=== PATIENT | male | born 1945 | race Caucasian/White ===

== ENCOUNTER 2021-04-20 14:11 | Outpatient (CLI) | payer OTHER, SELFPAY ==
--- NOTE | 2021-04-20 14:18 | USCV_ITS ---
Carlos Alberto Suárez Age: 76 Gender: M : 1945 Exam Date: 04/20/2021 14:30 Ordering Phys: Rosita Sam MD Technologist: AVA Exam Location: [facility] Indication: MURMUR BP: 137 / 80 HR: 83 Rhythm: Sinus Technical Quality: Adequate MEASUREMENTS (Male / Female) Normal Values 2D ECHO LV Diastolic Diameter PLAX 3.1 cm 4.2 - 5.9 / 3.9 - 5.3 cm LV Systolic Diameter PLAX 2.3 cm IVS Diastolic Thickness 1.0 cm 0.6 - 1.0 / 0.6 - 0.9 cm IVS Systolic Thickness 1.6 cm LVPW Diastolic Thickness 1.3 cm 0.6 - 1.0 / 0.6 - 0.9 cm LVPW Systolic Thickness 1.7 cm RV Chamber Size 2.7 cm LVOT Diameter 2.0 cm LV Ejection Fraction 2D Teich 51.8 % LV Ejection Fraction MOD 2C 44.4 % LV Ejection Fraction 2C AL 45.0 % LA Diameter 2.5 cm LA Width 2.9 cm LA Height 4.2 cm RA Width 2.8 cm RA Height 3.6 cm Aorta at Sinotubular Diameter 2.4 cm DOPPLER AV Peak Velocity 123.0 cm/s LVOT Peak Velocity 121.0 cm/s AV Area Cont Eq vti 3.6 cm squared AV Area Cont Eq pk 3.1 cm squared MV Peak Velocity 136.0 cm/s MV Area PHT 3.1 cm squared Mitral E to A Ratio 0.5 MV E' Velocity 35.0 cm/s Mitral E to MV E' Ratio 16.9 Mitral E to LV E' Lateral Ratio 16.4 Mitral E to LV E' Septal Ratio 17.8 TR Peak Velocity 250.0 cm/s TR Peak Gradient 25.0 mmHg TV Peak E Velocity 48.0 cm/s Right Atrial Pressure 3.0 mmHg Pulmonary Artery Systolic Pressu 28.0 mmHg PV Peak Velocity 102.0 cm/s RV Acceleration Time 0.1 s RV Ejection Time 0.3 s RV AcT/ET 0.5 FINDINGS Left Ventricle Normal left ventricular size, systolic function and increased wall thickness, with no regional wall motion abnormalities. Left ventricular ejection fraction is estimated at 65-70 %. Grade I diastolic dysfunction (abnormal relaxation filling pattern), normal to mildly elevated filling pressures. Right Ventricle Normal right ventricular size and systolic function. Right ventricular systolic pressure 28 mmHg. Right Atrium Normal right atrial size. Right atrial pressure estimated at 3 mm Hg. Left Atrium Mildly increased left atrial size. Mitral Valve Moderate mitral annular calcification. Thickened mitral valve. No mitral valve stenosis. Trace mitral valve regurgitation. Aortic Valve Moderately thickened and calcified aortic valve. Aortic valve sclerosis. No aortic valve stenosis. No aortic valve regurgitation. Tricuspid Valve Structurally normal tricuspid valve. Trace to mild tricuspid valve regurgitation. Pulmonic Valve Pulmonic valve not well visualized. Pericardium No pericardial effusion. Aorta Normal size aortic root. Normal sized inferior vena cava. CONCLUSIONS 1. Normal left ventricular size, systolic function and increased wall thickness, with no regional wall motion abnormalities. Left ventricular ejection fraction is estimated at 65-70 %. Grade I diastolic dysfunction (abnormal relaxation filling pattern), normal to mildly elevated filling pressures. 2. Pulmonary artery pressure estimated at 28 mmHg. 3. Trace to mild tricuspid valve regurgitation. 4. Moderately thickened and calcified aortic valve. Aortic valve sclerosis. 5. No prior similar studies to compare. Marybel Razo MD (Electronically Signed) Final Date: 22 April 2021 13:01 S
== END 2021-04-20 14:12 | disposition home or self-care (01) ==
LOC: US 14:13
PROVIDERS: PCP Family Medicine; Visit Provider Family Medicine
DX: R01.1 Cardiac murmur, unspecified (principal); I08.2 Rheumatic disorders of both aortic and tricuspid valves
CPT/HCPCS: 93306

== ENCOUNTER 2024-03-27 11:31 | Inpatient (IN) | payer OTHER, SELFPAY ==
[2024-03-27] VITALS (8 sets, daily range): BP systolic 132–186; BP diastolic 68–96; PULSE 63–80; RESP 14–20; TEMP 36.4–36.8; O2SAT 95–100; BMI 23.3
--- NOTE | 2024-03-27 14:08 | XRR_ITS ---
PROCEDURE INFORMATION: Exam: XR Left Hand Exam date and time: 03/27/2024 2:15 PM Age: 78 years old Clinical indication: Injury or trauma; Other: Not specified; Blunt trauma (contusions or hematomas); Hand; Left; Injury date: 1 week ago TECHNIQUE: Imaging protocol: Radiologic exam of the left hand. Views: 3 or more views. COMPARISON: No relevant prior studies available. FINDINGS: Bones/joints: No fracture or dislocation is seen. Moderate degenerative changes are seen about the left hand and including carpal-first metacarpal joint. Soft tissues: Suggestion of mild soft tissue swelling. XR/XR hand LT min 3V* [id number] IMPRESSION: Moderate degenerative changes. No fracture or dislocation is seen.
--- NOTE | 2024-03-27 14:15 | CTR_ITS ---
PROCEDURE INFORMATION: Exam: CT Left Upper Extremity With Contrast, Hand Exam date and time: 03/27/2024 3:38 PM Age: 78 years old Clinical indication: Injury or trauma; Fall; Other: Pain; Additional info: Abscess thenar eminence TECHNIQUE: Imaging protocol: Computed tomography of the left upper extremity with contrast. Exam focused on the hand. Radiation optimization: All CT scans at this facility use at least one of these dose optimization techniques: automated exposure control; mA and/or kV adjustment per patient size (includes targeted exams where dose is matched to clinical indication); or iterative reconstruction. Contrast material: OMNI 350; Contrast volume: 100 ml; Contrast route: INTRAVENOUS (IV); COMPARISON: CR XR hand LT min 3V* [id number] 03/27/2024 2:15 PM RADIATION DOSE METRICS: Total DLP (mGy-cm): 300 FINDINGS: Bones/joints: See Soft tissues finding. Soft tissues: Diffuse moderate degenerative changes noted about the left hand, as identified on radiographs. No acute fracture or acute osseous abnormality is seen. Diffuse subcutaneous and deeper soft tissue edematous and/or infiltrative changes noted. This includes the thenar eminence region. A couple of tiny foci of air density is seen medial to the proximal phalanx of the thumb. This may be posttraumatic or associated with soft tissue infection. No enhancing capsular fluid collection to suggest significant abscess. There is suggestion of diffuse mild hypodense appearance within the thenar soft tissues, measuring greater than fluid density. Contrast is seen within vessels postcontrast administration. CT/CT hand LT w con [id number] IMPRESSION: 1. Moderate degenerative changes. No fracture or acute osseous abnormality. 2. Diffuse subcutaneous and deeper soft tissue edematous and/or infiltrative changes of the right hand, and more prominent around the thenar eminence. There is lack of an enhancing capsular fluid collection regarding significant or drainable abscess. A couple of tiny foci of air density within the soft tissues medial to the proximal phalanx of the thumb could be posttraumatic or associated with underlying soft tissue infection. Soft tissue changes could indicate component of edema and soft tissue infection.
--- NOTE | 2024-03-27 14:41 | ED_ITS ---
HPI - Extremity Problem 2 General: Chief complaint: Extremity Injury, Upper Stated complaint: lt hand inj Time Seen by Provider: 03/27/24 14:08 History of Present Illness: 78-year-old male presents to the emergen cy room he was working a few days ago when he cut his left hand he cut it along the base of the thumb and has been treating it at home. He is at increased swelling and no drainage. Wound has opened up this is purulent appearing drainage is red and inflamed and swollen he still is able to move the thumb and has normal sensation no proximal forearm swelling or lymphadenopathy denies fever. Associated symptoms: Deny chest pain, fever(s) or rash Related Data Home Medications Medication Instructions Recorded Confirmed ascorbic acid (vitamin C) 100 mg 100 mg PO DAILY 03/28/24 03/28/24 tablet atenolol 50 mg tablet 50 mg PO DAILY 03/28/24 03/28/24 atorvastatin 80 mg tablet 40 mg PO DAILY 03/28/24 03/28/24 brimonidine 0.15 % eye drops 1 drp ophthalmic (eye) TID 03/28/24 03/28/24 brimonidine 0.2 % eye drops 1 drp ophthalmic (eye) TID 03/28/24 03/28/24 clopidogrel 75 mg tablet 75 mg PO DAILY 03/28/24 03/28/24 gabapentin 300 mg capsule 300 mg PO TID 03/28/24 03/28/24 insulin aspart U-100 100 unit/mL 10 unit SUBCUT TID 03/28/24 03/28/24 (3 mL) subcutaneous pen (Novolog FlexPen U-100 Insulin aspart) insulin glulisine U-100 100 See Rx Instructions .Route .COMPLEX 03/28/24 03/28/24 unit/mL subcutaneous pen latanoprost 0.005 % eye drops 1 drp ophthalmic (eye) BEDTIME 03/28/24 03/28/24 lisinopril 20 mg tablet 20 mg PO DAILY 03/28/24 03/28/24 meloxicam 7.5 mg tablet 7.5 mg PO DAILY 03/28/24 03/28/24 metformin 850 mg tablet 850 mg PO BID 03/28/24 03/28/24 omega 5-hme-cdq-fish oil 1,600 5 ml PO DAILY 03/28/24 03/28/24 mg-500 mg-800 mg/5 mL oral liquid (Fish Oil) omeprazole 20 mg capsule,delayed 20 mg PO DAILY 03/28/24 03/28/24 release timolol maleate 0.5 % eye drops 1 drp ophthalmic (eye) BID 03/28/24 03/28/24 Allergies Allergy/AdvReac Type Severity Reaction Status Date / Time Penicillins Allergy Unknown Verified 03/27/24 11:46 Review of Systems 2 Const: Reports: chills; Denies: fever(s) Card: Denies: chest pain Resp: Denies: dyspnea GI: Denies: abdominal pain : Denies: dysuria, urinary frequency or urinary urgency Musc: Reports: extremity pain and extremity swelling; Denies: neck pain or back pain Skin/Breast: Denies: rash PFSH ED 2 PFSH: Medical History Hypertension Diabetes Physical Exam 2 Const: GENERAL APPEARANCE: cooperative ORIENTATION/CONSCIOUSNESS: Yes awake, Yes oriented to person, Yes oriented to place and Yes oriented to time HENMT: COMMON NORMALS: normocephalic, atraumatic and hearing grossly normal bilaterally HEAD & SCALP: normocephalic and atraumatic Resp: COMMON NORMALS: normal respiratory effort, No retractions, No use of accessory muscles and clear to auscultation bilaterally AUSCULTATION: clear to auscultation bilaterally Cardio: COMMON NORMALS: regular rate, regular rhythm and No murmurs present (Cardio) RATE: regular rate RHYTHM: regular rhythm GI: COMMON NORMALS: Soft to palpation and No hepatosplenomegaly present A USCULTATION: Yes normoactive bowel sounds PALPATION: Yes Soft to palpation, No Tenderness to palpation present (GI), No Guarding due to palpation present (GI) and Yes No hepatosplenomegaly present Extremity: COMMON NORMALS: normal to inspection, capillary refill normal, no clubbing, cyanosis or edema, no calf tenderness and no pedal edema OTHER: Examination left hand of the swelling the distal part of the thenar eminence with laceration open on the palmar and dorsal surface of the hand there is no active drainage there is some desquamation of the adjacent skin there is definite swelling and induration. Is tender to touch. Range of motion actively preserved is moderately painful. Neurovascular is intact to the tip of the thumb. Good capillary refill normal sensation Neuro: SENSORIUM/ORIENTATION: Yes oriented to person, Yes oriented to place and Yes oriented to time Skin: COMMON NORMALS: no rashes or lesions noted GENERAL SKIN EXAM: no rashes or lesions noted Course 2 Vital Signs: Vital signs: Vital Signs Temperature 98.1 F 03/29/24 04:00 Pulse Rate 75 03/29/24 05:27 Respiratory Rate 16 03/29/24 04:00 Blood Pressure 153/72 03/29/24 04:00 Pulse Oximetry 93 03/29/24 04:00 Oxygen Delivery Me thod Room Air 03/28/24 08:25 MDM - Extremity (Nontraumatic) Medical Decision Making CT does not show any abscess. There is signs of cellulitis cultures been done started on vancomycin discussed with hospitalist orders written Medical Records I reviewed the patient's medical records. Lab Data I reviewed the patient's lab results. 03/29/24 05:29 03/29/24 05:29 Radiology Impressions Hand X-Ray 03/27/24 14:08 IMPRESSION: Moderate degenerative changes. No fracture or dislocation is seen. Hand CT 03/27/24 14:15 IMPRESSION: 1. Moderate degenerative changes. No fracture or acute osseous abnormality. 2. Diffuse subcutaneous and deeper soft tissue edematous and/or infiltrative changes of the right hand, and more prominent around the thenar eminence. There is lack of an enhancing capsular fluid collection regarding significant or drainable abscess. A couple of tiny foci of air density within the soft tissues medial to the proximal phalanx of the thumb could be posttraumatic or associated with underlying soft tissue infection. Soft tissue changes could indicate component of edema and soft tissue infection. Laboratory Results WBC 14.82 10^3/uL (3.29-11.43) H 03/27/24 14:31 RBC 3.80 10^6/uL (3.85-5.65) L 03/27/24 14:31 Hgb 12.20 g/dL (11.27-16.99) 03/27/24 14:31 Hct 36.8 % (37-53) L 03/27/24 14:31 MCV 96.8 fl (82-101) 03/27/24 14:31 MCH 32.1 pg (27-33) 03/27/24 14:31 MCHC 33.2 g/dL (30-55) 03/27/24 14:31 RDW 13.8 % (12.1-15.1) 03/27/24 14:31 Plt Count 281 10^3/cmm (157-399) 03/27/24 14:31 MPV 9.3 fL (7.4-10.4) 03/27/24 14:31 Neut % (Auto) 60.5 % 03/27/24 14:31 Lymph % (Auto) 26.9 % 03/27/24 14:31 [place] % (Auto) 9.4 % 03/27/24 14:31 Eos % (Auto) 1.2 % 03/27/24 14:31 Baso % (Auto) 0.5 % 03/27/24 14:31 Neut # (Auto) 8.97 10^3/uL (1.8-7.7) H 03/27/24 14:31 Lymph # (Auto) 4.0 10^3/uL (0.8-4.8) 03/27/24 14:31 [place] # (Auto) 1.4 10^3/uL (0.2-0.9) H 03/27/24 14:31 Eos # (Auto) 0.2 10^3/uL (0.0-0.8) 03/27/24 14:31 Baso # (Auto) 0.1 10^3/uL (0.0-0.1) 03/27/24 14:31 Nucleated RBC % (auto) 0 % 03/27/24 14: Nucleated RBCs # 0.0 /100WBC 03/27/24 14:31 Sodium 135 mmol/L (136-145) L 03/27/24 14:31 Potassium 4.1 mmol/L (3.5-5.1) 03/27/24 14:31 Chloride 99 mmol/L (98-107) 03/27/24 14:31 Carbon Dioxide 23 mmol/L (22-29) 03/27/24 14:31 Anion Gap 17.1 (5-19) 03/27/24 14:31 BUN 17 mg/dL (8-23) 03/27/24 14:31 Creatinine 1.0 mg/dL (0.7-1.2) 03/27/24 14:31 GFR Calculation Not Reportable 03/27/24 14:31 Glucose 236 mg/dL (65-115) H 03/27/24 14:31 POC Glucose 198 mg/dL (70-110) H 03/27/24 15:58 Estimat Average Glucose 154 03/27/24 14:31 Hemoglobin A1c 7.0 % (4.0-6.0) H 03/27/24 14:31 Calculated Osmolality 289 mOsm/kg (285-295) 03/27/24 14:31 Calcium 9.0 mg/dL (8.5-10.5) 03/27/24 14:31 Total Bilirubin 0.4 mg/dL (0.15-1.2) 03/27/24 14:31 AST 17 U/L (0-40) 03/27/24 14:31 ALT 18 U/L (0-41) 03/27/24 14:31 Alkaline Phosphatase 127 U/L (40-130) 03/27/24 14:31 Total Protein 7.7 g/dL (6.6-8.7) 03/27/24 14:31 Albumin 4.1 g/dL (3.5-5.2) 03/27/24 14:31 Globulin 3.6 g/dL (1.3-4.6) 03/27/24 14:31 Procalcitonin 0.06 ng/mL (0-0.5) 03/27/24 14:31 All radiology interpretation(s) finalized by discharge Discharge Plan Discharge Patient Disposition: Admitted As Inpatient Admit Provider: Tyra Gallo Clinical Impression: Cellulitis and abscess of hand, Diabetes, Hypertension Condition: Stable Coding Level of Care Code ED 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
[2024-03-27 15:02] LABS: Basophils # 0.1 10^3/uL (0.0-0.1); Basophils % 0.5 %; Eosinophils # 0.2 10^3/uL (0.0-0.8); Eosinophils % 1.2 %; Hematocrit 36.8 % (37-53); Lymphocytes % 26.9 %; Mean Corpuscular HGB Conc 33.2 g/dL (30-55); Mean Corpuscular Hemoglobin 32.1 pg (27-33); Mean Corpuscular Volume 96.8 fl (82-101); Mean Platelet Volume 9.3 fL (7.4-10.4); Monocytes # 1.4 10^3/uL (0.2-0.9); Monocytes % 9.4 %; Neutrophils # 8.97 10^3/uL (1.8-7.7); Neutrophils % 60.5 %; Nucleated Red Blood Cells % 0 %; Platelet Count 281 10^3/cmm (157-399); Red Cell Distribution Width 13.8 % (12.1-15.1); White Blood Count 14.82 10^3/uL (3.29-11.43)
[2024-03-27 15:20] LABS: Alanine Aminotransferase 18 U/L (0-41); Albumin Level 4.1 g/dL (3.5-5.2); Alkaline Phosphatase 127 U/L (40-130); Anion Gap 17.1 (5-19); Aspartate Amino Transferase 17 U/L (0-40); Blood Urea Nitrogen 17 mg/dL (8-23); Carbon Dioxide 23 mmol/L (22-29); Chloride 99 mmol/L (98-107); Creatinine Clr Calc Pharmacy 65.8861; Globulin 3.6 g/dL (1.3-4.6); Glucose 236 mg/dL (65-115); Osmolality Calculated 289 mOsm/kg (285-295); Potassium 4.1 mmol/L (3.5-5.1); Sodium 135 mmol/L (136-145); Total Bilirubin 0.4 mg/dL (0.15-1.2); Total Protein 7.7 g/dL (6.6-8.7)
[2024-03-27] MEDS: iohexol 350 mg/mL 500 mL Btl (per mL) IV (15:45)
[2024-03-27 16:03] LABS: Glucose Point of Care 198 mg/dL (70-110)
[2024-03-27] MEDS: vancomycin 1,000 MG in sodium chloride 0.9% 250 ML 250 MG IV (17:04)
[2024-03-27] MEDS: nicotine 21 mg Patch 1 PATCH TRANSDERMA (18:11)
--- NOTE | 2024-03-27 18:36 | P.HP_ITS ---
Providers/Chief Complaint 2 Admitting Physician: Tyra Gallo MD Primary Care Provider: Rosita Sam MD Chief Complaint: lt hand inj History of Present Illness Carlos Alberto Suárez is a 78 year old male who present to the hospital with worsening of swelling and purulent drainage from his left hand, patient stating that he fell on a rested metal dog pen a week ago, he started noticing purulent drainage worsening of swelling and redness within the last 2 to 3 days, he has not noticed any fever, nausea vomiting or fever. He is diabetic in the ER CT scan was questionable did not show drainable abscess however there is purulent cellulitis evident on clinical exam. Review of Systems 2 Const: Denies: fever(s) Eyes: Denies: change in vision ENMT: Denies: throat pain Card: Denies: chest pain Resp: Denies: dyspnea Musc: Reports: extremity pain, extremity swelling and joint redness Skin/Breast: Reports: rash and pruritus Neuro: Denies: headache(s) Medications/Allergies Allergies Allergy/AdvReac Type Severity Reaction Status Date / Time Penicillins Allergy Unknown Verified 03/27/24 11:46 PFSH Acute 2 PFSH: Medical History Hypertension Diabetes Vitals/I&O/Wt Last Vital Signs Temp 97.5 F L 03/27/24 11:40 Pulse 67 03/27/24 18:02 Resp 16 03/27/24 18:02 BP 169/89 03/27/24 18:02 Pulse Ox 100 03/27/24 18:02 O2 Del Method Room Air 03/27/24 18:02 03/27/24 03/27/24 03/27/24 06:59 14:59 22:59 Intake Total 250 / 250 Balance 250 / 250 Weight last 48 hrs Weight 78.018 kg Physical Exam 2 Narrative: Pleasant cooperative male GCS 15 Nonfocal neuroexam Left hand with swelling extending from space between thumb and finger with purulent drainage, cellulitis erythema around dorsum of the hand Nonfocal neuroexam GCS 15 Pleasant and cooperative Data 03/27/24 14:31 03/27/24 14:31 Micro: Microbiology 03/27/24 14:37 Blood Culture - Preliminary Blood SPECIMEN COLLECTED 03/27/24 14:31 Blood Culture - Preliminary Blood SPECIMEN COLLECTED A&P Assessment and plan (1) Cellulitis and abscess of hand: (2) Hypertension: (3) Diabetes: Plan Purulent cellulitis of left hand Patient needs to be covered for anti-MRSA and antipseudomonal since he has fallen on a rested metallic wire Will need orthopedic evaluation in the morning Continue sliding scale with consistent carb diet Opioids along bowel regimen Continue IV fluids Monitor for worsening of cellulitis Full code Consistent carb diet N.p.o. after midnight in case he would go for I&D in the morning Patient is an active smoker smokes 1 pack/day will start nicotine patch 21 mg daily Attestations 2 Medical Necessity Statement*: More than 2 midnights anticipated Diagnoses Cellulitis and abscess of hand L03.119; L02.519 Hypertension I10 Diabetes E11.9
[2024-03-27 19:20] LABS: Procalcitonin 0.06 ng/mL (0-0.5)
--- NOTE | 2024-03-27 20:02 | PHA.VACGOAL ---
Vancomycin Goal - Goal Vancomycin Goal:: 10-15 mg/L Vancomycin Indication:: SSTI - Therapy Current therapy:: Other Antibiotic (AZTREONAM) Day of therpy:: Day []of [] . Actual body weight (kg): 78.018 kg - Data Labs: WBC 14.82 10^3/uL (3.29-11.43) H 03/27/24 14:31 RBC 3.80 10^6/uL (3.85-5.65) L 03/27/24 14:31 Hgb 12.20 g/dL (11.27-16.99) 03/27/24 14:31 Hct 36.8 % (37-53) L 03/27/24 14:31 MCV 96.8 fl (82-101) 03/27/24 14:31 MCH 32.1 pg (27-33) 03/27/24 14:31 MCHC 33.2 g/dL (30-55) 03/27/24 14:31 RDW 13.8 % (12.1-15.1) 03/27/24 14:31 Sodium 135 mmol/L (136-145) L 03/27/24 14:31 Potassium 4.1 mmol/L (3.5-5.1) 03/27/24 14:31 Chloride 99 mmol/L (98-107) 03/27/24 14:31 Carbon Dioxide 23 mmol/L (22-29) 03/27/24 14:31 Anion Gap 17.1 (5-19) 03/27/24 14:31 BUN 17 mg/dL (8-23) 03/27/24 14:31 Creatinine 1.0 mg/dL (0.7-1.2) 03/27/24 14:31 GFR Calculation Not Reportable 03/27/24 14:31 Treatment plan:: new consult Regimen:: Patient is 78 year old male being treated for cellulitis. Received 1000 mg loading dose of vancomycin while in ED. Using Nomogram for the initial maintenance dose will start on dose of 750 mg q12h. Pharmacy to monitor daily.
[2024-03-27] MEDS: enoxaparin 40 mg/0.4 mL Syringe SUBCUT (20:20)
[2024-03-27] MEDS: sodium chloride 0.9% 1,000 ML 75 ML IV (20:22)
[2024-03-27 20:23] LABS: Glucose Point of Care 231 mg/dL (70-110)
[2024-03-27] MEDS: aztreonam 2,000 MG in sodium chloride 0.9% (plus) 100 ML 200 MG IV (20:30)
[2024-03-27 20:58] LABS: Estmated Average Glucose 154
[2024-03-28] VITALS (11 sets, daily range): BP systolic 126–144; BP diastolic 66–75; PULSE 68–92; RESP 16–18; TEMP 36.6–37.1; O2SAT 92–95
[2024-03-28] MEDS: vancomycin 750 MG in sodium chloride 0.9% 250 ML 250 MG IV ×2 (04:14→17:48)
[2024-03-28 05:34] LABS: Basophils % 0.5 %; Eosinophils # 0.2 10^3/uL (0.0-0.8); Eosinophils % 2.1 %; Hematocrit 29.4 % (37-53); Lymphocytes # 3.7 10^3/uL (0.8-4.8); Lymphocytes % 42.2 %; Mean Corpuscular HGB Conc 32.7 g/dL (30-55); Mean Corpuscular Hemoglobin 32.2 pg (27-33); Mean Corpuscular Volume 98.7 fl (82-101); Mean Platelet Volume 9.3 fL (7.4-10.4); Monocytes # 0.9 10^3/uL (0.2-0.9); Monocytes % 9.8 %; Neutrophils # 3.85 10^3/uL (1.8-7.7); Neutrophils % 43.8 %; Nucleated Red Blood Cells % 0 %; Platelet Count 213 10^3/cmm (157-399); Red Blood Count 2.98 10^6/uL (3.85-5.65); Red Cell Distribution Width 13.7 % (12.1-15.1); White Blood Count 8.77 10^3/uL (3.29-11.43)
[2024-03-28 05:52] LABS: Anion Gap 13.7 (5-19); Blood Urea Nitrogen 14 mg/dL (8-23); C Reactive Protein 77.1 mg/L (0.0-4.9); Carbon Dioxide 23 mmol/L (22-29); Chloride 106 mmol/L (98-107); Creatinine Clr Calc Pharmacy 83.4145; Glucose 166 mg/dL (65-115); Magnesium 1.5 mg/dL (1.7-2.3); Osmolality Calculated 292 mOsm/kg (285-295); Potassium 3.7 mmol/L (3.5-5.1); Sodium 139 mmol/L (136-145)
[2024-03-28 06:14] LABS: Slide Review Slide Review Perform
[2024-03-28 06:28] LABS: Glucose Point of Care 176 mg/dL (70-110)
[2024-03-28] MEDS: aztreonam 2,000 MG in sodium chloride 0.9% (plus) 100 ML 200 MG IV ×2 (08:15→20:10)
[2024-03-28] MEDS: nicotine 21 mg Patch 1 PATCH TRANSDERMA (08:17)
[2024-03-28] MEDS: insulin lispro 100 unit/1 mL SUBCUT ×2 (08:17→11:55)
[2024-03-28] MEDS: sennosides-docusate Tablet 1 TAB PO (08:18)
--- NOTE | 2024-03-28 08:19 | PC.PHAR ---
patient is va
[2024-03-28 11:05] LABS: Glucose Point of Care 212 mg/dL (70-110)
--- NOTE | 2024-03-28 12:09 | P.PN_ITS ---
Vitals/I&O/Wt Last Vital Signs Temp 98 F 03/28/24 07:00 Pulse 82 03/28/24 08:25 Resp 18 03/28/24 08:25 BP 132/75 03/28/24 07:00 Pulse Ox 95 03/28/24 08:25 O2 Del Method Room Air 03/28/24 08:25 03/27/24 03/28/24 03/28/24 22:59 06:59 14:59 Intake Total 350 / 350 250 / 600 340 / 340 Balance 350 / 350 250 / 600 340 / 340 Weight last 48 hrs Weight 80.513 kg Weight 78.018 kg Weight 78.018 kg Physical Exam 2 Narrative: Pleasant cooperative male GCS 15 Nonfocal neuroexam Left hand with swelling extending from space between thumb and finger with purulent drainage, cellulitis erythema around dorsum of the hand Nonfocal neuroexam GCS 15 Pleasant and cooperative Data 03/28/24 05:00 03/28/24 05:00 Micro: Microbiology 03/27/24 14:37 Blood Culture - Preliminary Blood SPECIMEN COLLECTED 03/27/24 14:31 Blood Culture - Preliminary Blood SPECIMEN COLLECTED A&P Assessment and plan (1) Cellulitis and abscess of hand: (2) Hypertension: (3) Diabetes: (4) Glaucoma: (5) Peripheral neuropathy: Plan Purulent cellulitis of left hand Patient needs to be covered for anti-MRSA and antipseudomonal since he has fallen on a rested metallic wire Will need orthopedic evaluation in the morning Continue sliding scale with consistent carb diet Opioids along bowel regimen Continue IV fluids Monitor for worsening of cellulitis Full code Consistent carb diet N.p.o. after midnight in case he would go for I&D in the morning Patient is an active smoker smokes 1 pack/day will start nicotine patch 21 mg daily 03/28 ? CT hand performed on admission shows diffuse subcutaneous and deeper soft tissue edema does and/or infiltrative changes of the right hand more prominent around the thenar eminence. There is lack of an enhancing capsular fluid collection regarding significant or drainable abscess. A couple of tiny foci of air density within the soft tissues medial to the proximal phalanx of the thumb could be posttraumatic or associated with underlying soft tissue infection. Soft tissue changes could indicate component of edema and soft tissue infection. ? Continue on broad-spectrum antibiotics vancomycin and aztreonam at this time. ? Will check CRP today and in a.m. ? Will monitor for worsening of cellulitis. ? Consult orthopedic surgery in a.m. for potential I&D if no improvement. ? N.p.o. at midnight today for potential I&D in AM. ? Lovenox 40 for DVT prophylaxis ? Continue atenolol, atorvastatin, gabapentin, lisinopril ? Hold metformin ? Continue eyedrops for glaucoma ? Hold Plavix in case of I&D in AM. ? Sliding scale insulin Attestations 2 Medical Necessity Statement*: Continue to manage left hand cellulitis with IV antibiotics at this time. Patient need I&D in AM. Coding Level of Care Code Acute Code for [facility] Diagnoses Cellulitis and abscess of hand L03.119; L02.519 Hypertension I10 Diabetes E11.9 Glaucoma H40.9 Peripheral neuropathy G62.9
--- NOTE | 2024-03-28 14:17 | PC.NURSE ---
Pt refused SCD's. Education and need for use explained.
[2024-03-28 14:59] LABS: Erythrocyte Sedimentation Rate 41 mm/hr (0-10)
[2024-03-28 15:17] LABS: C Reactive Protein 76.9 mg/L (0.0-4.9)
[2024-03-28 15:24] LABS: Procalcitonin 0.06 ng/mL (0-0.5)
[2024-03-28] MEDS: gabapentin 300 mg Capsule PO ×2 (15:54→20:11)
[2024-03-28] MEDS: brimonidine 0.2% Op Soln 5 mL Btl 1 DROP EYE-BOTH ×2 (15:54→20:10)
[2024-03-28 17:01] LABS: Glucose Point of Care 111 mg/dL (70-110)
[2024-03-28] MEDS: timolol 0.5% Op Soln 5 mL Btl 1 DROP EYE-BOTH (17:48)
[2024-03-28] MEDS: enoxaparin 40 mg/0.4 mL Syringe SUBCUT (20:10)
[2024-03-28 20:22] LABS: Glucose Point of Care 337 mg/dL (70-110)
[2024-03-29] VITALS (19 sets, daily range): BP systolic 139–194; BP diastolic 72–98; PULSE 66–86; RESP 15–18; TEMP 36.2–36.8; O2SAT 91–98
[2024-03-29] MEDS: vancomycin 750 MG in sodium chloride 0.9% 250 ML 250 MG IV (05:08)
[2024-03-29 05:47] LABS: Basophils # 0.1 10^3/uL (0.0-0.1); Basophils % 0.6 %; Eosinophils # 0.1 10^3/uL (0.0-0.8); Eosinophils % 1.8 %; Hematocrit 30.8 % (37-53); Lymphocytes # 3.3 10^3/uL (0.8-4.8); Lymphocytes % 43.2 %; Mean Corpuscular HGB Conc 31.8 g/dL (30-55); Mean Corpuscular Hemoglobin 31.2 pg (27-33); Mean Corpuscular Volume 98.1 fl (82-101); Mean Platelet Volume 9.1 fL (7.4-10.4); Monocytes # 0.8 10^3/uL (0.2-0.9); Monocytes % 10.1 %; Neutrophils # 3.24 10^3/uL (1.8-7.7); Neutrophils % 42.1 %; Nucleated Red Blood Cells % 0 %; Platelet Count 223 10^3/cmm (157-399); Red Blood Count 3.14 10^6/uL (3.85-5.65); Red Cell Distribution Width 13.7 % (12.1-15.1); White Blood Count 7.71 10^3/uL (3.29-11.43)
[2024-03-29 06:08] LABS: Anion Gap 13.7 (5-19); Blood Urea Nitrogen 11 mg/dL (8-23); C Reactive Protein 46.9 mg/L (0.0-4.9); Calcium 8.2 mg/dL (8.5-10.5); Carbon Dioxide 22 mmol/L (22-29); Chloride 109 mmol/L (98-107); Creatinine Clr Calc Pharmacy 74.2656; Glucose 174 mg/dL (65-115); Magnesium 1.6 mg/dL (1.7-2.3); Osmolality Calculated 296 mOsm/kg (285-295); Potassium 3.7 mmol/L (3.5-5.1); Slide Review Slide Review Perform; Sodium 141 mmol/L (136-145)
[2024-03-29 06:11] LABS: Glucose Point of Care 193 mg/dL (70-110)
[2024-03-29] MEDS: aztreonam 2,000 MG in sodium chloride 0.9% (plus) 100 ML 200 MG IV ×2 (08:45→22:36)
[2024-03-29] MEDS: timolol 0.5% Op Soln 5 mL Btl 1 DROP EYE-BOTH (08:47)
[2024-03-29] MEDS: brimonidine 0.2% Op Soln 5 mL Btl 1 DROP EYE-BOTH (08:47)
[2024-03-29] MEDS: insulin lispro 100 unit/1 mL SUBCUT ×2 (08:48→12:46)
[2024-03-29] MEDS: atenolol 50 mg Tablet PO (08:48)
[2024-03-29] MEDS: pantoprazole DR 40 mg Tablet PO (08:48)
[2024-03-29] MEDS: sennosides-docusate Tablet 1 TAB PO (08:48)
[2024-03-29] MEDS: atorvastatin 40 mg Tablet PO (08:48)
[2024-03-29] MEDS: lisinopril 20 mg Tablet PO (08:48)
[2024-03-29] MEDS: gabapentin 300 mg Capsule PO (08:49)
[2024-03-29] MEDS: nicotine 21 mg Patch 1 PATCH TRANSDERMA (08:49)
[2024-03-29 12:11] LABS: Glucose Point of Care 180 mg/dL (70-110)
--- NOTE | 2024-03-29 12:33 | PC.NURSE ---
1200- This nurse noticed there was no NPO order in for the pt per physician documentation. Order place, but lunch trays had been served. This nurse went to room take tray before pt ate it, but pt stated Oh, hell no. I can't not eat. And he was supposed to be here an hour and a half ago. So, this nurse stated, he is seeing pts in clinic so he well be in as soon as he can, but with the possibility of surgery, you can not be eating. Pt then stated Farzad albert , I'm eating this food!
--- NOTE | 2024-03-29 13:06 | P.PN_ITS ---
Subjective 2 Subjective: Seen this morning patient having significant drainage from hand at this time it has increased swelling as well. Patient asking when he can go home. He is awaiting to be seen by orthopedic surgery. Vitals/I&O/Wt Last Vital Signs Temp 98.2 F 03/29/24 12:00 Pulse 66 03/29/24 12:00 Resp 16 03/29/24 12:00 BP 139/78 03/29/24 12:00 Pulse Ox 97 03/29/24 12:00 O2 Del Method Room Air 03/29/24 12:00 03/28/24 03/29/24 03/29/24 22:59 06:59 14:59 Intake Total 590 / 2170 250 / 2420 460 / 460 Balance 590 / 2170 250 / 2420 460 / 460 Weight last 48 hrs Weight 80.83 kg Weight 80.513 kg Weight 78.018 kg Physical Exam 2 Narrative: Pleasant cooperative male GCS 15 Nonfocal neuroexam Left hand with swelling extending from space between thumb and finger with purulent drainage, cellulitis erythema around dorsum of the hand. Worsening edema and drainage present at this time. Nonfocal neuroexam GCS 15 Pleasant and cooperative Data 03/29/24 05:29 03/29/24 05:29 Micro: Microbiology 03/27/24 14:37 Blood Culture - Preliminary Blood NEGATIVE TO DATE 03/27/24 14:31 Blood Culture - Preliminary Blood NEGATIVE TO DATE A&P Assessment and plan (1) Cellulitis and abscess of hand: (2) Hypertension: (3) Diabetes: (4) Glaucoma: (5) Peripheral neuropathy: Plan Purulent cellulitis of left hand Patient needs to be covered for anti-MRSA and antipseudomonal since he has fallen on a rested metallic wire Will need orthopedic evaluation in the morning Continue sliding scale with consistent carb diet Opioids along bowel regimen Continue IV fluids Monitor for worsening of cellulitis Full code Consistent carb diet N.p.o. after midnight in case he would go for I&D in the morning Patient is an active smoker smokes 1 pack/day will start nicotine patch 21 mg daily 03/28 ? CT hand performed on admission shows diffuse subcutaneous and deeper soft tissue edema does and/or infiltrative changes of the right hand more prominent around the thenar eminence. There is lack of an enhancing capsular fluid collection regarding significant or drainable abscess. A couple of tiny foci of air density within the soft tissues medial to the proximal phalanx of the thumb could be posttraumatic or associated with underlying soft tissue infection. Soft tissue changes could indicate component of edema and soft tissue infection. ? Continue on broad-spectrum antibiotics vancomycin and aztreonam at this time. ? Will check CRP today and in a.m. ? Will monitor for worsening of cellulitis. ? Consult orthopedic surgery in a.m. for potential I&D if no improvement. ? N.p.o. at midnight today for potential I&D in AM. ? Lovenox 40 for DVT prophylaxis ? Continue atenolol, atorvastatin, gabapentin, lisinopril ? Hold metformin ? Continue eyedrops for glaucoma ? Hold Plavix in case of I&D in AM. ? Sliding scale insulin 10/10 Worsening edema and purulent drainage from hand present. Consult orthopedic surgery today. CRP 46.7 Continue Lovenox for DVT prophylaxis Continue rest of home medications as above. Continue vancomycin and aztreonam. Attestations 2 Medical Necessity Statement*: Awaiting orthopedic surgery consultation Coding Level of Care Code Acute Code for [facility] Diagnoses Cellulitis and abscess of hand L03.119; L02.519 Hypertension I10 Diabetes E11.9 Glaucoma H40.9 Peripheral neuropathy G62.9
--- NOTE | 2024-03-29 16:05 | P.ANESASSM_ITS ---
Pre-Anesthetic Assessment Height/Weight: Height 1.83 m Weight 80.83 kg Temp Pulse Resp BP Pulse Ox O2 Del Method 98.2 F 66 16 139/78 97 Room Air 03/29/24 12:00 03/29/24 12:00 03/29/24 12:00 03/29/24 12:00 03/29/24 12:00 03/29/24 12:00 Preop Diagnosis: Left hand/thumb abscess and cellulitis I & D Familial anesthetic complications: None Was Beta John taken within 24 hours: N/A Was Clonidine taken within 24 hours: N/A Last intake: 11:30 Social No alcohol and No tobacco Exam alert, oriented x 3, clear to auscultation bilaterally and regular rate & rhythm Airway Mallampati: Class II Dentition: other (one remaining tooth) CV/HEM Coronary Artery Disease (stent) and Hypertension GI Gastroesophageal Reflux Disease Metabolic Hyperlipidemia Anesthetic Plan ASA status: 3 Anesthesia: General Risk of > 500 ml blood loss (7ml/kg in children): No Medications/Allergies Home Medications Medication Instructions Recorded Confirmed Last Taken Type ascorbic acid (vitamin C) 100 mg 100 mg PO DAILY 03/28/24 03/28/24 Unknown History tablet atenolol 50 mg tablet 50 mg PO DAILY 03/28/24 03/28/24 Unknown History atorvastatin 80 mg tablet 40 mg PO DAILY 03/28/24 03/28/24 Unknown History brimonidine 0.15 % eye drops 1 drp ophthalmic (eye) TID 03/28/24 03/28/24 Unknown History brimonidine 0.2 % eye drops 1 drp ophthalmic (eye) TID 03/28/24 03/28/24 Unknown History clopidogrel 75 mg tablet 75 mg PO DAILY 03/28/24 03/28/24 Unknown History gabapentin 300 mg capsule 300 mg PO TID 03/28/24 03/28/24 Unknown History insulin aspart U-100 100 unit/mL 10 unit SUBCUT TID 03/28/24 03/28/24 Unknown History (3 mL) subcutaneous pen (Novolog FlexPen U-100 Insulin aspart) insulin glulisine U-100 100 See Rx Instructions .Route .COMPLEX 03/28/24 03/28/24 Unknown History unit/mL subcutaneous pen latanoprost 0.005 % eye drops 1 drp ophthalmic (eye) BEDTIME 03/28/24 03/28/24 Unknown History lisinopril 20 mg tablet 20 mg PO DAILY 03/28/24 03/28/24 Unknown History meloxicam 7.5 mg tablet 7.5 mg PO DAILY 03/28/24 03/28/24 Unknown History metformin 850 mg tablet 850 mg PO BID 03/28/24 03/28/24 Unknown History omega 1-ebw-rpg-fish oil 1,600 5 ml PO DAILY 03/28/24 03/28/24 Unknown History mg-500 mg-800 mg/5 mL oral liquid (Fish Oil) omeprazole 20 mg capsule,delayed 20 mg PO DAILY 03/28/24 03/28/24 Unknown History release timolol maleate 0.5 % eye drops 1 drp ophthalmic (eye) BID 03/28/24 03/28/24 Unknown History Allergies Allergy/AdvReac Type Severity Reaction Status Date / Time Penicillins Allergy Unknown Verified 03/27/24 11:46 Current Medications Generic Name Dose Route Start Last Admin Trade Name Freq PRN Reason Stop Dose Admin Atenolol 50 mg 03/29/24 09:00 03/29/24 08:48 Atenolol 50 Mg Tablet PO 50 mg DAILY [facility] Administration Atorvastatin Calcium 40 mg 03/29/24 09:00 03/29/24 08:48 Atorvastatin 40 Mg Tablet PO 40 mg DAILY [facility] Administration Brimonidine Tartrate 1 drop 03/28/24 15:00 03/29/24 08:47 Brimonidine 0.2% Op Soln 5 Ml Btl EYE-BOTH 1 drop TID [facility] Administration Enoxaparin Sodium 40 mg 03/27/24 19:51 03/28/24 20:10 Enoxaparin 40 Mg/0.4 Ml Syringe SUBCUT 40 mg Q24H [facility] Administration Gabapentin 300 mg 03/28/24 15:00 03/29/24 08:49 Gabapentin 300 Mg Capsule PO 300 mg TID [facility] Administration Aztreonam 2,000 mg/ Sodium 100 mls @ 200 mls/hr 03/27/24 19:51 03/29/24 09:21 Chloride IV Infused Q12H [facility] Infusion Protocol Vancomycin HCl 750 mg/ Sodium 250 mls @ 250 mls/hr 03/28/24 05:00 03/29/24 06:10 Chloride IV Infused Q12H [facility] Infusion Insulin Human Lispro 0 unit 03/28/24 08:00 03/29/24 12:46 Insulin Lispro 100 Unit/1 Ml SUBCUT 4 unit TIDWM [facility] Administration Protocol Lisinopril 20 mg 03/29/24 09:00 03/29/24 08:48 Lisinopril 20 Mg Tablet PO 20 mg DAILY [facility] Administration Nicotine 1 patch 03/28/24 09:00 03/29/24 08:49 Nicotine 21 Mg Patch TRANSDERMA 1 patch DAILY [facility] Administration Pantoprazole Sodium 40 mg 03/29/24 09:00 03/29/24 08:[address] 40 Mg Tablet PO 40 mg DAILY [facility] Administration Senna/Docusate Sodium 1 tab 03/28/24 09:00 03/29/24 08:48 Sennosides-Docusate Tablet PO 1 tab DAILY [facility] Administration Timolol Maleate 1 drop 03/28/24 18:00 03/29/24 08:47 Timolol 0.5% Op Soln 5 Ml Btl EYE-BOTH 1 drop BID [facility] Administration PFS Anesthesia Medical History Hypertension Diabetes Data Anesthesia 03/29/24 05:29 03/29/24 05:29 Short CBC 03/28/24 03/29/24 Range/Units 05:00 05:29 WBC 8.77 7.71 (3.29-11.43) 10^3/uL Hgb 9.60 L 9.80 L (11.27-16.99) g/dL Hct 29.4 L 30.8 L (37-53) % MCV 98.7 98.1 (82-101) fl Plt Count 213 223 (157-399) 10^3/cmm Neut % (Auto) 43.8 42.1 % Neut # (Auto) 3.85 3.24 (1.8-7.7) 10^3/uL BMP 03/28/24 03/29/24 05:00 05:29 Sodium 139 141 Potassium 3.7 3.7 Chloride 106 109 H Carbon Dioxide 23 22 BUN 14 11 Creatinine 0.8 0.9 Glucose 166 H 174 H Calcium 8.0 L 8.2 L Coags 03/28/24 03/28/24 03/29/24 05:00 14:31 05:29 ESR 41 H C-Reactive Protein 77.1 H 76.9 H 46.9 H Microbiology 03/27/24 14:37 Blood Culture - Preliminary Blood NEGATIVE TO DATE 03/27/24 14:31 Blood Culture - Preliminary Blood NEGATIVE TO DATE Cardiac Studies: 2 Echocardiogram 04/20/21
--- NOTE | 2024-03-29 16:49 | P.CONIM_ITS ---
Providers/Reason For Consult 2 Consulting Physician/Specialty*: George Child DO/orthopedic surgery Reason for Consult*: Left hand/thumb infection Requesting Physician: Dr. Gallo Attending Physician: Tyra Gallo MD Primary Care Provider: Rosita Sam MD History of Present Illness History of Present Illness Carlos Alberto Suárez is a 78 year old male who presented to the emergency department on 03/27/2024 who is having worsening swelling and purulent drainage from the his left hand states he had gotten poked by working with a metal dog pen roughly a week ago. Its worsened over the past couple days has not noticed any fever nausea or vomiting. He is a diabetic. He had a CT scan which did not show any drainable abscess however purulent cellulitis was appreciated on clinical examination patient was admitted by the hospitalist and had undergone IV antibiotics patient's failed to improve and as result orthopedics was consulted for evaluation treatment recommendations. At this point time patient denies any fevers or chills or chest pain or shortness of breath. He is not having any significant pain however he is a diabetic and does have some neuropathy. Patient was patient last ate at lunch today. Review of Systems 2 General: Reports: 10 or more systems reviewed and unremarkable except in HPI and below Medications/Allergies Home Medications Medication Instructions Recorded Confirmed Last Taken Type ascorbic acid (vitamin C) 100 mg 100 mg PO DAILY 03/28/24 03/28/24 Unknown History tablet atenolol 50 mg tablet 50 mg PO DAILY 03/28/24 03/28/24 Unknown History atorvastatin 80 mg tablet 40 mg PO DAILY 03/28/24 03/28/24 Unknown History brimonidine 0.15 % eye drops 1 drp ophthalmic (eye) TID 03/28/24 03/28/24 Unknown History brimonidine 0.2 % eye drops 1 drp ophthalmic (eye) TID 03/28/24 03/28/24 Unknown History clopidogrel 75 mg tablet 75 mg PO DAILY 03/28/24 03/28/24 Unknown History gabapentin 300 mg capsule 300 mg PO TID 03/28/24 03/28/24 Unknown History insulin aspart U-100 100 unit/mL 10 unit SUBCUT TID 03/28/24 03/28/24 Unknown History (3 mL) subcutaneous pen (Novolog FlexPen U-100 Insulin aspart) insulin glulisine U-100 100 See Rx Instructions .Route .COMPLEX 03/28/24 03/28/24 Unknown History unit/mL subcutaneous pen latanoprost 0.005 % eye drops 1 drp ophthalmic (eye) BEDTIME 03/28/24 03/28/24 Unknown History lisinopril 20 mg tablet 20 mg PO DAILY 03/28/24 03/28/24 Unknown History meloxicam 7.5 mg tablet 7.5 mg PO DAILY 03/28/24 03/28/24 Unknown History metformin 850 mg tablet 850 mg PO BID 03/28/24 03/28/24 Unknown History omega 1-tzd-dsw-fish oil 1,600 5 ml PO DAILY 03/28/24 03/28/24 Unknown History mg-500 mg-800 mg/5 mL oral liquid (Fish Oil) omeprazole 20 mg capsule,delayed 20 mg PO DAILY 03/28/24 03/28/24 Unknown History release timolol maleate 0.5 % eye drops 1 drp ophthalmic (eye) BID 03/28/24 03/28/24 Unknown History Allergies Allergy/AdvReac Type Severity Reaction Status Date / Time Penicillins Allergy Unknown Verified 03/27/24 11:46 Current Medications Generic Name Dose Route Start Last Admin Trade Name Freq PRN Reason Stop Dose Admin Atenolol 50 mg 03/29/24 09:00 03/29/24 08:48 Atenolol 50 Mg Tablet PO 50 mg DAILY [facility] Administration Atorvastatin Calcium 40 mg 03/29/24 09:00 03/29/24 08:48 Atorvastatin 40 Mg Tablet PO 40 mg DAILY [facility] Administration Brimonidine Tartrate 1 drop 03/28/24 15:00 03/29/24 08:47 Brimonidine 0.2% Op Soln 5 Ml Btl EYE-BOTH 1 drop TID [facility] Administration Enoxaparin Sodium 40 mg 03/27/24 19:51 03/28/24 20:10 Enoxaparin 40 Mg/0.4 Ml Syringe SUBCUT 40 mg Q24H [facility] Administration Gabapentin 300 mg 03/28/24 15:00 03/29/24 08:49 Gabapentin 300 Mg Capsule PO 300 mg TID [facility] Administration Aztreonam 2,000 mg/ Sodium 100 mls @ 200 mls/hr 03/27/24 19:51 03/29/24 09:21 Chloride IV Infused Q12H [facility] Infusion Protocol Vancomycin HCl 750 mg/ Sodium 250 mls @ 250 mls/hr 03/28/24 05:00 03/29/24 06:10 Chloride IV Infused Q12H [facility] Infusion Insulin Human Lispro 0 unit 03/28/24 08:00 03/29/24 12:46 Insulin Lispro 100 Unit/1 Ml SUBCUT 4 unit TIDWM [facility] Administration Protocol Lisinopril 20 mg 03/29/24 09:00 03/29/24 08:48 Lisinopril 20 Mg Tablet PO 20 mg DAILY [facility] Administration Nicotine 1 patch 03/28/24 09:00 03/29/24 08:49 Nicotine 21 Mg Patch TRANSDERMA 1 patch DAILY [facility] Administration Pantoprazole Sodium 40 mg 03/29/24 09:00 03/29/24 08:[address] 40 Mg Tablet PO 40 mg DAILY [facility] Administration Senna/Docusate Sodium 1 tab 03/28/24 09:00 03/29/24 08:48 Sennosides-Docusate Tablet PO 1 tab DAILY [facility] Administration Timolol Maleate 1 drop 03/28/24 18:00 03/29/24 08:47 Timolol 0.5% Op Soln 5 Ml Btl EYE-BOTH 1 drop BID [facility] Administration PFSH Acute 2 PFSH: Medical History Hypertension Diabetes Vitals/I&O/Wt Last Vital Signs Temp 98.2 F 03/29/24 12:00 Pulse 66 03/29/24 12:00 Resp 16 03/29/24 12:00 BP 139/78 03/29/24 12:00 Pulse Ox 97 03/29/24 12:00 O2 Del Method Room Air 03/29/24 12:00 03/29/24 03/29/24 03/29/24 06:59 14:59 22:59 Intake Total 250 / 2420 700 / 700 Balance 250 / 2420 700 / 700 Weight last 48 hrs Weight 178 lb 3.2 oz Weight 177 lb 8 oz Weight 172 lb Physical Exam 2 Narrative: Examination left hand: Examination left hand dressings on in place subsequent taken down patient has significant skin maceration along the first webspace around the volar aspect of finger with draining purulence expressible from the thenar eminence he does not have any significant tenderness to palpation does endorse some diffuse decreased sensation to the left hand likely secondary to diabetic neuropathy. Does have some fluctuance over the thenar eminence as well as the first webspace. Patient has cellulitis localized around the thumb and webspace but nothing tracking proximally into the carpal tunnel or up into the volar forearm with no evidence of lymphangitis compartments are soft compressible throughout the hand. Once again multiple areas of skin maceration and wound breakdown in the webspace as well as over the volar thumb. Fingertips warm well-perfused wrist cap refill less than 2 seconds no signs of any subcutaneous emphysema or bulla or rapidly progressing infection Data 03/29/24 05:29 03/29/24 05:29 Micro: Microbiology 03/27/24 14:37 Blood Culture - Preliminary Blood NEGATIVE TO DATE 03/27/24 14:31 Blood Culture - Preliminary Blood NEGATIVE TO DATE Xray Ortho: Radiologist's impression: Ordering Provider/Ordering MD: Cuhck Abel DO Date of Service: 03/27/24 Procedure(s): XR hand LT min 3V* [id number] Accession Number(s): [id number] Report Number: [id number] PROCEDURE INFORMATION: Exam: XR Left Hand Exam date and time: 03/27/2024 2:15 PM Age: 78 years old Clinical indication: Injury or trauma; Other: Not specified; Blunt trauma (contusions or hematomas); Hand; Left; Injury date: 1 week ago TECHNIQUE: Imaging protocol: Radiologic exam of the left hand. Views: 3 or more views. COMPARISON: No relevant prior studies available. FINDINGS: Bones/joints: No fracture or dislocation is seen. Moderate degenerative changes are seen about the left hand and including carpal-first metacarpal joint. Soft tissues: Suggestion of mild soft tissue swelling. XR/XR hand LT min 3V* [id number] IMPRESSION: Moderate degenerative changes. No fracture or dislocation is seen. Ordering Provider/Ordering MD: Chuck Abel DO Date of Service: 03/27/24 Procedure(s): CT hand LT w con [id number] Accession Number(s): [id number] Report Number: [id number] PROCEDURE INFORMATION: Exam: CT Left Upper Extremity With Contrast, Hand Exam date and time: 03/27/2024 3:38 PM Age: 78 years old Clinical indication: Injury or trauma; Fall; Other: Pain; Additional info: Abscess thenar eminence TECHNIQUE: Imaging protocol: Computed tomography of the left upper extremity with contrast. Exam focused on the hand. Radiation optimization: All CT scans at this facility use at least one of these dose optimization techniques: automated exposure control; mA and/or kV adjustment per patient size (includes targeted exams where dose is matched to clinical indication); or iterative reconstruction. Contrast material: OMNI 350; Contrast volume: 100 ml; Contrast route: INTRAVENOUS (IV); COMPARISON: CR XR hand LT min 3V* [id number] 03/27/2024 2:15 PM RADIATION DOSE METRICS: Total DLP (mGy-cm): 300 FINDINGS: Bones/joints: See Soft tissues finding. Soft tissues: Diffuse moderate degenerative changes noted about the left hand, as identified on radiographs. No acute fracture or acute osseous abnormality is seen. Diffuse subcutaneous and deeper soft tissue edematous and/or infiltrative changes noted. This includes the thenar eminence region. A couple of tiny foci of air density is seen medial to the proximal phalanx of the thumb. This may be posttraumatic or associated with soft tissue infection. No enhancing capsular fluid collection to suggest significant abscess. There is suggestion of diffuse mild hypodense appearance within the thenar soft tissues, measuring greater than fluid density. Contrast is seen within vessels postcontrast administration. CT/CT hand LT w con [id number] IMPRESSION: 1. Moderate degenerative changes. No fracture or acute osseous abnormality. 2. Diffuse subcutaneous and deeper soft tissue edematous and/or infiltrative changes of the right hand, and more prominent around the thenar eminence. There is lack of an enhancing capsular fluid collection regarding significant or drainable abscess. A couple of tiny foci of air density within the soft tissues medial to the proximal phalanx of the thumb could be posttraumatic or associated with underlying soft tissue infection. Soft tissue changes could indicate component of edema and soft tissue infection. A&P Assessment and plan (1) Cellulitis and abscess of hand: (2) Diabetes: (3) Peripheral neuropathy: Plan N.p.o.?last ate at noon Labs reviewed initial WBC count 14.82 has downtrended since IV antibiotics to 7.7 Internal medicine on board as primary IV antibiotics per primary CRP 76.9 down trended to 46.9 A1c is 7.0 ESR 41 Imaging reviewed?CT scan shows no signs of drainable abscess however patient does have purulent drainage appreciated out of his wounds of the thumb and first webspace At this point in time patient is failed conservative treatment from IV antibiotics he has improved from a lab standpoint however clinically continues to have cellulitis and draining abscess given this and feels though he would greatly benefit from a left thumb irrigation debridement and would recommend doing this today to prevent any worsening of his infection. I did express the severity of this disease he is diabetic which I feel guarded some of his flexion of pain as he does have peripheral neuropathy. Also him diabetic he understands an infection can be much more challenging. At this point time would recommend a left hand/thumb irrigation and debridement today. Will keep him n.p.o. We talked about the ins and outs procedure the risk benefits complication alternatives surgery. Risk of surgery include but are not limited to make it better make it worse injury to nerves vessels or tendons, persistent infection, wound complications further I&D's, possible loss of thumb or limb. Understanding these risks with surgery patient elects proceed with surgical invention. All questions have been answered at this time. Will proceed with the OR today. Then return to the floor postoperatively continuing IV antibiotics Coding Level of Care Code Acute Code for g [facility] Diagnoses Cellulitis and abscess of hand L03.119; L02.519 Diabetes E11.9 Peripheral neuropathy G62.9 Time Spent (min) 45
[2024-03-29 16:54] LABS: Vancomycin Trough 8.5 ug/mL (10-15)
[2024-03-29 17:09] LABS: Glucose Point of Care 159 mg/dL (70-110)
--- NOTE | 2024-03-29 19:45 | PC.NURSE ---
Pt left @ 194 for surgery.
[2024-03-29] MEDS: sodium chloride 0.9% 1,000 ML 30 ML IV (20:07)
[2024-03-29] MEDS: vancomycin 1,000 MG in sodium chloride 0.9% 250 ML 250 MG IV (20:13)
--- NOTE | 2024-03-29 21:26 | W.PM.BPON ---
Date of Procedure: 03/29/2024 Surgeon: George Child DO Regional Service Manager(s): None Procedure(s) performed: Left hand/thumb irrigation and debridement (11 cm x 3 cm x 2 cm) Findings of the procedure(s): Patient was found to have extensive abscess of the thenar musculature wrapping around has a collar-button abscess to the first intermetacarpal space. Infection did extend proximally into the thenar muscular but not into the carpal tunnel and patient was found to have abscess within the thumb volarly with exposed and eroded A1 rama consistent with flexor tenosynovitis of the left thumb with volar thumb abscess as well. Patient underwent decompression without issues or complications 2 sets of cultures were taken of both aerobic and anaerobic of the abscess. I was able to ellipse out all or tissue and is able to get a full reapproximation of the skin edges I did place a Rocio drain with plan for later pole. This was an extensive infection and may need further irrigation debridement will have him n.p.o. at midnight on Tuesday night with plan for reevaluation possible reoperation if clinically does not have much in the way of improvement or possible reaccumulation of abscess will reevaluate him on Tuesday morning. Will return to the floor postoperatively and continue with IV empiric antibiotics. Continue to monitor cultures. Estimated blood loss: 10 mL Specimen(s) removed: Cultures aerobic and anaerobic x 2 of left thumb and hand abscess Post-operative diagnosis: Left hand/thumb abscess and cellulitis
[2024-03-29] MEDS: fentaNYL 50 mcg/mL INJ 2mL IVP (21:46)
--- NOTE | 2024-03-29 22:00 | ANE.PACU2 ---
Inpatient post-anesthesia follow up: Airway intact: Yes Vital signs: Temperature 97.6 F Pulse Rate 86 Respiratory Rate 16 Blood Pressure 147/73 Pulse Oximetry 94 Oxygen Delivery Me thod Room Air Oxygen Flow Rate Fraction of Inspir ed Oxygen Hydration adequate: Yes Nausea and vomiting: No Pain level: 1 Mental status: Baseline
[2024-03-29] MEDS: enoxaparin 40 mg/0.4 mL Syringe SUBCUT (22:36)
[2024-03-29] MEDS: morphine IR 15 mg Tablet PO (22:48)
[2024-03-30] VITALS (13 sets, daily range): BP systolic 102–147; BP diastolic 54–88; PULSE 62–92; RESP 15–18; TEMP 36.4–36.7; O2SAT 90–96
[2024-03-30] MEDS: morphine 4 mg/mL SDV 1 mL IVP (01:17)
[2024-03-30] MEDS: vancomycin 1,000 MG in sodium chloride 0.9% 250 ML 250 MG IV ×2 (05:34→18:06)
[2024-03-30] MEDS: morphine IR 15 mg Tablet PO (05:35)
[2024-03-30 06:05] LABS: Basophils % 0.3 %; Eosinophils % 0.1 %; Hematocrit 31.8 % (37-53); Lymphocytes # 2.4 10^3/uL (0.8-4.8); Mean Corpuscular HGB Conc 32.7 g/dL (30-55); Mean Corpuscular Hemoglobin 31.6 pg (27-33); Mean Corpuscular Volume 96.7 fl (82-101); Mean Platelet Volume 9.2 fL (7.4-10.4); Monocytes # 0.4 10^3/uL (0.2-0.9); Monocytes % 3.2 %; Neutrophils # 8.52 10^3/uL (1.8-7.7); Neutrophils % 73.7 %; Nucleated Red Blood Cells % 0 %; Platelet Count 265 10^3/cmm (157-399); Red Blood Count 3.29 10^6/uL (3.85-5.65); Red Cell Distribution Width 13.4 % (12.1-15.1); White Blood Count 11.55 10^3/uL (3.29-11.43)
[2024-03-30 06:18] LABS: Anion Gap 16.1 (5-19); Blood Urea Nitrogen 15 mg/dL (8-23); Calcium 8.1 mg/dL (8.5-10.5); Carbon Dioxide 21 mmol/L (22-29); Chloride 103 mmol/L (98-107); Creatinine Clr Calc Pharmacy 74.4023; Glucose 266 mg/dL (65-115); Osmolality Calculated 292 mOsm/kg (285-295); Potassium 4.1 mmol/L (3.5-5.1); Sodium 136 mmol/L (136-145)
[2024-03-30 06:31] LABS: Glucose Point of Care 302 mg/dL (70-110)
[2024-03-30] MEDS: aztreonam 2,000 MG in sodium chloride 0.9% (plus) 100 ML 200 MG IV ×2 (08:29→21:24)
[2024-03-30] MEDS: atorvastatin 40 mg Tablet PO (08:31)
[2024-03-30] MEDS: insulin lispro 100 unit/1 mL SUBCUT ×2 (08:31→11:18)
[2024-03-30] MEDS: nicotine 21 mg Patch 1 PATCH TRANSDERMA (08:31)
[2024-03-30] MEDS: gabapentin 300 mg Capsule PO ×3 (08:31→21:25)
[2024-03-30] MEDS: lisinopril 20 mg Tablet PO (08:31)
[2024-03-30] MEDS: sennosides-docusate Tablet 1 TAB PO (08:31)
[2024-03-30] MEDS: pantoprazole DR 40 mg Tablet PO (08:31)
[2024-03-30] MEDS: brimonidine 0.2% Op Soln 5 mL Btl 1 DROP EYE-BOTH ×3 (08:42→21:25)
[2024-03-30] MEDS: timolol 0.5% Op Soln 5 mL Btl 1 DROP EYE-BOTH ×2 (08:42→18:13)
[2024-03-30] MEDS: atenolol 50 mg Tablet PO (08:42)
--- NOTE | 2024-03-30 10:32 | PC.CHAP ---
Pastoral Care Encounter/Spiritual Assessment Type of Contact [] Declined technology instructor visit [] Patient/Family/Request visit [] Outpatient visit [] Follow-up visit [] Physician referral [] Code/Alert [x] Routine visit [] Staff referral [] Actively dying [] Patient sleeping [] Family support [] [] Out of room [x] Palliative care [] [] Receiving care in room [] Pre-surgical visit [] Trauma [] Long length of stay [] ICU visit [] Other: Relational/Emotional Strength [] Patient feels connected with others/family/visitors/staff [] Distress [] Loneliness/isolation [] Abandonment Spirituality of Patient [] Person of Nathalie [] Attends Zoroastrianism of their Nathalie [] Believes in Prayer [] Reads Bible or Church materials [] There are Spiritual issues to be addressed Market Editor Interventions [] Prayer [] Active listening [] Non-anxious presence [] Spiritual/emotional support [] Crisis/trauma care [] Spiritual counseling [] Bereavement support [] Provided bereavement packet [] Provided Bible/devotional materials [] Provided toy/stuffed animal, coloring book to patient or family member [] Provided Communion [] Anointing/[place] [] Salvation [] Completed spiritual assessment [] Other: Impact on Illness or Injury [] Angry [] Fearful [] Anxious [] Often cries [] Exhaustion [] Unable to work [] Unable to attend sabianism [] Unable to walk/stand [] Unable to read [] Unable to drive [] Unable to eat/drink [] Unable to sleep [] Unable to be with family [] Patient intubated [] Other: Summary Time spent with patient
[2024-03-30 10:52] LABS: Glucose Point of Care 238 mg/dL (70-110)
--- NOTE | 2024-03-30 13:38 | PM.PN ---
Subjective Subjective: Patient seen and examined today. Dressings left arm in place. Patient had a bump in his white count likely secondary to surgery. Patient's denying any significant pain states feels better than prior to surgery. Planning on dressing takedown tomorrow for reevaluation if need for Indu&D. N.p.o. at midnight. Vitals/I&O/Wt Last Vital Signs Temp 97.7 F 03/30/24 08:00 Pulse 92 03/30/24 08:00 Resp 16 03/30/24 08:00 BP 140/79 03/30/24 08:00 Pulse Ox 96 03/30/24 08:00 O2 Del Method Room Air 03/30/24 01:00 03/29/24 03/30/24 03/30/24 22:59 06:59 14:59 Intake Total 1350 / 2050 590 / 2640 820 / 820 Output Total Balance 1340 / 2040 590 / 2630 820 / 820 Weight last 48 hrs Weight 179 lb Weight 178 lb 3.2 oz Physical Exam Narrative: Examination of patient's left hand limited secondary to patient splint this is left subsequently on and in place fingertips are warm well-perfused brisk capillary refill less than 2 seconds. Patient does have some peripheral neuropathy at baseline but does endorse some simple sensation intact light touch to the tip of the thumb. He is able to wiggle the fingers from the splint. Data 04/02/24 05:28 04/01/24 10:13 A&P Assessment and plan (1) Cellulitis and abscess of hand: (2) Diabetes: (3) Peripheral neuropathy: Plan Plan to make patient n.p.o. at midnight A.m. labs reviewed Dressing taken down tomorrow recommend half hydroperoxide half normal saline soak in the a.m. with plan for reevaluation at that time for decision for possible surgery Internal medicine on board as primary IV antibiotics per primary Continue to follow cultures Ortho will continue to be on board. Plan will be to pull [place] drain prior to discharge Patient understands agrees to current plan. All questions answered. Attestations Medical Necessity Statement*: Ongoing care status post left thumb/hand irrigation debridement Coding Level of Care Code Acute Code for [facility] Diagnoses Cellulitis and abscess of hand L03.119; L02.519 Diabetes E11.9 Peripheral neuropathy G62.9 Time Spent (min) 10
--- NOTE | 2024-03-30 13:51 | P.PN_ITS ---
Subjective 2 Subjective: Seen today. Patient underwent I&D yesterday. Plan for washout again tomorrow morning. Vitals/I&O/Wt Last Vital Signs Temp 97.7 F 03/30/24 08:00 Pulse 92 03/30/24 08:00 Resp 16 03/30/24 08:00 BP 140/79 03/30/24 08:00 Pulse Ox 96 03/30/24 08:00 O2 Del Method Room Air 03/30/24 01:00 03/29/24 03/30/24 03/30/24 22:59 06:59 14:59 Intake Total 1350 / 2050 590 / 2640 820 / 820 Output Total Balance 1340 / 2040 590 / 2630 820 / 820 Weight last 48 hrs Weight 81.193 kg Weight 80.83 kg Physical Exam 2 Narrative: Pleasant cooperative male GCS 15 Nonfocal neuroexam Left hand status post I&D wrapped with Band-Aid at this time. Nonfocal neuroexam GCS 15 Pleasant and cooperative Data 03/30/24 05:34 03/30/24 05:34 A&P Assessment and plan (1) Cellulitis and abscess of hand: (2) Hypertension: (3) Diabetes: (4) Glaucoma: (5) Peripheral neuropathy: Plan Purulent cellulitis of left hand Patient needs to be covered for anti-MRSA and antipseudomonal since he has fallen on a rested metallic wire Will need orthopedic evaluation in the morning Continue sliding scale with consistent carb diet Opioids along bowel regimen Continue IV fluids Monitor for worsening of cellulitis Full code Consistent carb diet N.p.o. after midnight in case he would go for I&D in the morning Patient is an active smoker smokes 1 pack/day will start nicotine patch 21 mg daily 03/28 ? CT hand performed on admission shows diffuse subcutaneous and deeper soft tissue edema does and/or infiltrative changes of the right hand more prominent around the thenar eminence. There is lack of an enhancing capsular fluid collection regarding significant or drainable abscess. A couple of tiny foci of air density within the soft tissues medial to the proximal phalanx of the thumb could be posttraumatic or associated with underlying soft tissue infection. Soft tissue changes could indicate component of edema and soft tissue infection. ? Continue on broad-spectrum antibiotics vancomycin and aztreonam at this time. ? Will check CRP today and in a.m. ? Will monitor for worsening of cellulitis. ? Consult orthopedic surgery in a.m. for potential I&D if no improvement. ? N.p.o. at midnight today for potential I&D in AM. ? Lovenox 40 for DVT prophylaxis ? Continue atenolol, atorvastatin, gabapentin, lisinopril ? Hold metformin ? Continue eyedrops for glaucoma ? Hold Plavix in case of I&D in AM. ? Sliding scale insulin 03/30 I&D performed yesterday. N.p.o. admitted again tonight for another washout tomorrow morning. Continue IV antibiotics at this time. Consult orthopedic surgery today. Tight glucose control ? Continue moderate dose intensity sliding scale insulin Continue Lovenox for DVT prophylaxis Attestations 2 Medical Necessity Statement*: Another I&D procedure planned for morning. Diagnoses Cellulitis and abscess of hand L03.119; L02.519 Hypertension I10 Diabetes E11.9 Glaucoma H40.9 Peripheral neuropathy G62.9
--- NOTE | 2024-03-30 16:03 | PC.SOCIAL ---
IMM Update pg 2 of IMM updated and reviewed w/ patient. Copy provided and copy dated, initialed and placed in chart.
[2024-03-30 17:12] LABS: Glucose Point of Care 121 mg/dL (70-110)
[2024-03-30 21:06] LABS: Glucose Point of Care 321 mg/dL (70-110)
[2024-03-30] MEDS: enoxaparin 40 mg/0.4 mL Syringe SUBCUT (21:24)
[2024-03-31] VITALS (10 sets, daily range): BP systolic 120–184; BP diastolic 54–87; PULSE 60–79; RESP 14–18; TEMP 36.3–36.9; O2SAT 90–98
[2024-03-31 04:39] LABS: Basophils # 0.1 10^3/uL (0.0-0.1); Basophils % 0.5 %; Eosinophils # 0.1 10^3/uL (0.0-0.8); Eosinophils % 1.3 %; Hematocrit 31.9 % (37-53); Lymphocytes # 4.1 10^3/uL (0.8-4.8); Lymphocytes % 42.8 %; Mean Corpuscular HGB Conc 32.3 g/dL (30-55); Mean Corpuscular Hemoglobin 31.8 pg (27-33); Mean Corpuscular Volume 98.5 fl (82-101); Mean Platelet Volume 9.2 fL (7.4-10.4); Monocytes # 0.8 10^3/uL (0.2-0.9); Monocytes % 8.3 %; Neutrophils % 45.9 %; Nucleated Red Blood Cells % 0 %; Platelet Count 253 10^3/cmm (157-399); Red Blood Count 3.24 10^6/uL (3.85-5.65); Red Cell Distribution Width 13.7 % (12.1-15.1); White Blood Count 9.56 10^3/uL (3.29-11.43)
[2024-03-31 04:56] LABS: C Reactive Protein 12.9 mg/L (0.0-4.9)
[2024-03-31 04:58] LABS: Anion Gap 11.9 (5-19); Blood Urea Nitrogen 20 mg/dL (8-23); Carbon Dioxide 23 mmol/L (22-29); Chloride 109 mmol/L (98-107); Creatinine Clr Calc Pharmacy 67.4846; Glucose 182 mg/dL (65-115); Magnesium 1.6 mg/dL (1.7-2.3); Osmolality Calculated 297 mOsm/kg (285-295); Potassium 3.9 mmol/L (3.5-5.1); Sodium 140 mmol/L (136-145)
[2024-03-31 05:02] LABS: Vancomycin Trough 15.7 ug/mL (10-15)
[2024-03-31 05:20] LABS: Slide Review Slide Review Perform
[2024-03-31] MEDS: vancomycin 1,000 MG in sodium chloride 0.9% 250 ML 250 MG IV ×2 (05:41→19:06)
[2024-03-31 06:48] LABS: Glucose Point of Care 215 mg/dL (70-110)
--- NOTE | 2024-03-31 07:15 | P.PN_ITS ---
Subjective 2 Subjective: Patient seen and examined this morning. Has been n.p.o. since midnight his pain is much improved his white count has down trended to normal as well as a CRP significantly down trended to 12.9. Dressing was taken down currently was in a half hydroperoxide half normal saline soak and patient has no reaccumulation of abscess and no worsening appearance of erythema. Actually looks clinically much improved from initial presentation. Vitals/I&O/Wt Last Vital Signs Temp 97.8 F 03/31/24 04:00 Pulse 60 03/31/24 04:00 Resp 14 03/31/24 04:00 BP 133/72 03/31/24 04:00 Pulse Ox 93 03/31/24 04:00 O2 Del Method Room Air 03/31/24 04:00 03/30/24 03/31/24 03/31/24 22:59 06:59 14:59 Intake Total 690 / 1870 250 / 250 Balance 690 / 1870 250 / 250 Weight last 48 hrs Weight 182 lb 6.4 oz Weight 179 lb Physical Exam 2 Narrative: Examination of the left hand: Examination left hand demonstrates dressings subsequently was taken down currently and a half hydroperoxide half normal saline soaked Rocio drains in place. No evidence of reaccumulation no expressible purulence noted no proximal tracking erythema patient has had significant resolution in his swelling as well as erythema. No evidence of wound breakdown at this time. No evidence of reaccumulation and no palpable fluctuance. He is able to wiggle the fingers and subtly flex the thumb. No significant rama tenderness or flexor tendon sheath tenderness along the thumb. Data 03/31/24 04:09 03/31/24 04:09 Other Labs: CRP down trended to 12.9 Micro: Microbiology 03/29/24 20:47 Gram Stain - Final Hand - Left 03/29/24 20:47 Gram Stain - Final Hand - Left A&P Assessment and plan (1) Cellulitis and abscess of hand: (2) Diabetes: (3) Peripheral neuropathy: Plan N.p.o. since midnight A.m. labs reviewed CRP down trended to 12.9, white count has down trended to 9.56 Dressing taken down Clinically significant improvement no reaccumulation of abscess or any expressible abscess [place] drain left in place will plan to remove this prior to patient's discharge Internal medicine on board as primary IV antibiotics per primary At this point in time no orthopedic intervention needed for today. Continue to follow cultures Ortho will continue to be on board. Plan will be to pull [place] drain when patient discharged Patient understands agrees to current plan. All questions answered. Attestations 2 Medical Necessity Statement*: Ongoing care status post I&D of left hand and thumb requiring IV antibiotics Coding Level of Care Code Acute Code for [facility] Fwd Diagnoses Cellulitis and abscess of hand L03.119; L02.519 Diabetes E11.9 Peripheral neuropathy G62.9 Time Spent (min) 20
[2024-03-31] MEDS: aztreonam 2,000 MG in sodium chloride 0.9% (plus) 100 ML 200 MG IV ×2 (08:21→20:32)
[2024-03-31] MEDS: insulin lispro 100 unit/1 mL SUBCUT ×3 (08:21→19:06)
[2024-03-31] MEDS: nicotine 21 mg Patch 1 PATCH TRANSDERMA (08:21)
[2024-03-31] MEDS: atorvastatin 40 mg Tablet PO (08:22)
[2024-03-31] MEDS: atenolol 50 mg Tablet PO (08:22)
[2024-03-31] MEDS: sennosides-docusate Tablet 1 TAB PO (08:22)
[2024-03-31] MEDS: pantoprazole DR 40 mg Tablet PO (08:22)
[2024-03-31] MEDS: gabapentin 300 mg Capsule PO ×3 (08:22→20:32)
[2024-03-31] MEDS: lisinopril 20 mg Tablet PO (08:22)
[2024-03-31] MEDS: timolol 0.5% Op Soln 5 mL Btl 1 DROP EYE-BOTH ×2 (08:22→19:05)
[2024-03-31] MEDS: morphine IR 15 mg Tablet PO (08:24)
[2024-03-31] MEDS: brimonidine 0.2% Op Soln 5 mL Btl 1 DROP EYE-BOTH ×3 (08:35→20:33)
[2024-03-31 12:02] LABS: Glucose Point of Care 161 mg/dL (70-110)
--- NOTE | 2024-03-31 14:40 | P.PN_ITS ---
Subjective 2 Subjective: Seen this morning. Patient eating breakfast. Awaiting wound cultures at this time. Discussed with orthopedic surgery. Plan for another evaluation tomorrow to assess the need for further debridement. Vitals/I&O/Wt Last Vital Signs Temp 97.5 F L 03/31/24 11:52 Pulse 61 03/31/24 11:52 Resp 15 03/31/24 11:52 BP 140/63 03/31/24 11:52 Pulse Ox 98 03/31/24 11:52 O2 Del Method Room Air 03/31/24 11:52 03/30/24 03/31/24 03/31/24 22:59 06:59 14:59 Intake Total 690 / 1870 690 / 690 Balance 690 / 1870 690 / 690 Weight last 48 hrs Weight 82.735 kg Weight 81.193 kg Physical Exam 2 Narrative: Pleasant cooperative male GCS 15 Nonfocal neuroexam Left hand status post I&D wrapped with Band-Aid at this time. Did not take down dressing today. Nonfocal neuroexam GCS 15 Pleasant and cooperative Data 03/31/24 04:09 03/31/24 04:09 Micro: Microbiology 03/29/24 20:47 Gram Stain - Final Hand - Left Anaerobic Culture - Preliminary 03/29/24 20:47 Anaerobic Culture - Preliminary Hand - Left 03/29/24 20:47 Gram Stain - Final Hand - Left A&P Assessment and plan (1) Cellulitis and abscess of hand: (2) Hypertension: (3) Diabetes: (4) Glaucoma: (5) Peripheral neuropathy: Plan Purulent cellulitis of left hand Patient needs to be covered for anti-MRSA and antipseudomonal since he has fallen on a rested metallic wire Will need orthopedic evaluation in the morning Continue sliding scale with consistent carb diet Opioids along bowel regimen Continue IV fluids Monitor for worsening of cellulitis Full code Consistent carb diet N.p.o. after midnight in case he would go for I&D in the morning Patient is an active smoker smokes 1 pack/day will start nicotine patch 21 mg daily 03/28 ? CT hand performed on admission shows diffuse subcutaneous and deeper soft tissue edema does and/or infiltrative changes of the right hand more prominent around the thenar eminence. There is lack of an enhancing capsular fluid collection regarding significant or drainable abscess. A couple of tiny foci of air density within the soft tissues medial to the proximal phalanx of the thumb could be posttraumatic or associated with underlying soft tissue infection. Soft tissue changes could indicate component of edema and soft tissue infection. ? Continue on broad-spectrum antibiotics vancomycin and aztreonam at this time. ? Will check CRP today and in a.m. ? Will monitor for worsening of cellulitis. ? Consult orthopedic surgery in a.m. for potential I&D if no improvement. ? N.p.o. at midnight today for potential I&D in AM. ? Lovenox 40 for DVT prophylaxis ? Continue atenolol, atorvastatin, gabapentin, lisinopril ? Hold metformin ? Continue eyedrops for glaucoma ? Hold Plavix in case of I&D in AM. ? Sliding scale insulin 03/31 I&D performed 03/29 Continue IV antibiotics at this time. Appreciate recommendations from orthopedic surgery. Tight glucose control ? Continue moderate dose intensity sliding scale insulin Continue Lovenox for DVT prophylaxis Await intraoperative cultures Patient will be reassessed tomorrow for the need for further debridement. Attestations 2 Medical Necessity Statement*: Continue IV antibiotics at this time. Await wound cultures. Diagnoses Cellulitis and abscess of hand L03.119; L02.519 Hypertension I10 Diabetes E11.9 Glaucoma H40.9 Peripheral neuropathy G62.9
[2024-03-31 17:11] LABS: Glucose Point of Care 240 mg/dL (70-110)
[2024-03-31] MEDS: enoxaparin 40 mg/0.4 mL Syringe SUBCUT (20:32)
[2024-03-31 20:45] LABS: Glucose Point of Care 243 mg/dL (70-110)
[2024-04-01] VITALS (8 sets, daily range): BP systolic 143–194; BP diastolic 71–93; PULSE 63–89; RESP 16–19; TEMP 36.4–36.6; O2SAT 94–97
[2024-04-01] MEDS: vancomycin 1,000 MG in sodium chloride 0.9% 250 ML 250 MG IV ×2 (05:39→17:06)
[2024-04-01 06:48] LABS: Glucose Point of Care 193 mg/dL (70-110)
[2024-04-01] MEDS: aztreonam 2,000 MG in sodium chloride 0.9% (plus) 100 ML 200 MG IV ×2 (07:15→20:07)
[2024-04-01] MEDS: insulin lispro 100 unit/1 mL SUBCUT ×3 (08:53→17:08)
[2024-04-01] MEDS: pantoprazole DR 40 mg Tablet PO (08:54)
[2024-04-01] MEDS: atorvastatin 40 mg Tablet PO (08:54)
[2024-04-01] MEDS: timolol 0.5% Op Soln 5 mL Btl 1 DROP EYE-BOTH ×2 (08:54→17:09)
[2024-04-01] MEDS: brimonidine 0.2% Op Soln 5 mL Btl 1 DROP EYE-BOTH ×3 (08:54→20:08)
[2024-04-01] MEDS: atenolol 50 mg Tablet PO (08:54)
[2024-04-01] MEDS: lisinopril 20 mg Tablet PO (08:54)
[2024-04-01] MEDS: sennosides-docusate Tablet 1 TAB PO (08:54)
[2024-04-01] MEDS: gabapentin 300 mg Capsule PO ×3 (08:54→20:08)
[2024-04-01] MEDS: nicotine 21 mg Patch 1 PATCH TRANSDERMA (08:59)
--- NOTE | 2024-04-01 09:46 | P.PN_ITS ---
Subjective 2 Subjective: Patient seen and examined this morning. Doing well dressing subsequently changed he did have some increased drainage overnight. Does not appear to have any reaccumulation of abscess at this time. Continuing following cultures and sensitivities will have him n.p.o. at midnight tomorrow for recheck his CRP to see how he is trending for final decision the patient needs secondary washout. Vitals/I&O/Wt Last Vital Signs Temp 97.6 F 04/01/24 07:31 Pulse 69 04/01/24 07:31 Resp 17 04/01/24 07:31 BP 194/93 04/01/24 07:31 Pulse Ox 94 04/01/24 07:31 O2 Del Method Room Air 04/01/24 07:31 03/31/24 04/01/24 04/01/24 22:59 06:59 14:59 Intake Total 650 / 1340 150 / 1490 610 / 610 Balance 650 / 1340 150 / 1490 610 / 610 Weight last 48 hrs Weight 178 lb 12.8 oz Weight 182 lb 6.4 oz Physical Exam 2 Narrative: Examination of the left hand: Examination left hand demonstrates dressings subsequently was taken down, patient did have increased drainage from yesterday's dressing change. Overall no evidence of reaccumulation no purulence noted, no proximal tracking erythema patient. No evidence of wound breakdown at this time. Bloody tinged expressible fluid appreciated and on dressing. He is able to wiggle the fingers and subtly flex the thumb. No significant rama tenderness or flexor tendon sheath tenderness along the thumb. Data 03/31/24 04:09 03/31/24 04:09 Micro: Microbiology 03/29/24 20:47 Gram Stain - Final Hand - Left Abscess Culture - Preliminary Strep agalactiae - (group b) Gram Negative Rods 03/29/24 20:47 Gram Stain - Final Hand - Left Anaerobic Culture - Preliminary Abscess Culture - Preliminary Coag positive Staphylococcus Gram Negative Rods 03/29/24 20:47 Anaerobic Culture - Preliminary Hand - Left A&P Assessment and plan (1) Cellulitis and abscess of hand: (2) Diabetes: (3) Peripheral neuropathy: Plan Dressing taken down Patient did have some increased drainage on his dressings but still at this point in time wound appears to be stable no tracking proximally infection. Recommend n.p.o. at midnight Recommend recheck on CRP tomorrow morning Internal medicine on board as primary IV antibiotics per primary At this point in time no orthopedic intervention needed for today. Continue to follow cultures Ortho will continue to be on board. Patient understands agrees to current plan. All questions answered. Attestations 2 Medical Necessity Statement*: Ongoing care right thumb and hand infection Coding Level of Care Code Acute Code for g Fwd Diagnoses Cellulitis and abscess of hand L03.119; L02.519 Diabetes E11.9 Peripheral neuropathy G62.9 Time Spent (min) 15
[2024-04-01 10:21] LABS: Basophils # 0.1 10^3/uL (0.0-0.1); Basophils % 0.6 %; Eosinophils # 0.1 10^3/uL (0.0-0.8); Eosinophils % 1.6 %; Hematocrit 31.3 % (37-53); Lymphocytes % 35.2 %; Mean Corpuscular HGB Conc 32.3 g/dL (30-55); Mean Corpuscular Hemoglobin 31.6 pg (27-33); Mean Corpuscular Volume 97.8 fl (82-101); Mean Platelet Volume 8.9 fL (7.4-10.4); Monocytes # 0.6 10^3/uL (0.2-0.9); Monocytes % 7.1 %; Neutrophils # 4.58 10^3/uL (1.8-7.7); Neutrophils % 53.9 %; Nucleated Red Blood Cells % 0 %; Platelet Count 234 10^3/cmm (157-399); Red Cell Distribution Width 13.7 % (12.1-15.1)
[2024-04-01 10:38] LABS: Alanine Aminotransferase 20 U/L (0-41); Albumin Level 3.4 g/dL (3.5-5.2); Alkaline Phosphatase 93 U/L (40-130); Anion Gap 13.9 (5-19); Aspartate Amino Transferase 28 U/L (0-40); Blood Urea Nitrogen 15 mg/dL (8-23); Calcium 8.2 mg/dL (8.5-10.5); Carbon Dioxide 23 mmol/L (22-29); Chloride 105 mmol/L (98-107); Globulin 2.9 g/dL (1.3-4.6); Glucose 220 mg/dL (65-115); Magnesium 1.4 mg/dL (1.7-2.3); Osmolality Calculated 294 mOsm/kg (285-295); Potassium 3.9 mmol/L (3.5-5.1); Sodium 138 mmol/L (136-145); Total Bilirubin 0.3 mg/dL (0.15-1.2); Total Protein 6.3 g/dL (6.6-8.7)
[2024-04-01] MEDS: magnesium sulfate premix 4 GM/100 ML PREMIX IV (11:30)
[2024-04-01 11:59] LABS: Glucose Point of Care 176 mg/dL (70-110)
--- NOTE | 2024-04-01 13:11 | P.PN_ITS ---
Subjective 2 Subjective: Seen today. Sitting up on edge of bed eating. Agreeable to stay in the hospital as long as he needs to wear his hand. Vitals/I&O/Wt Last Vital Signs Temp 97.8 F 04/01/24 12:00 Pulse 63 04/01/24 12:00 Resp 17 04/01/24 12:00 BP 164/78 04/01/24 12:00 Pulse Ox 96 04/01/24 12:00 O2 Del Method Room Air 04/01/24 12:00 03/31/24 04/01/24 04/01/24 22:59 06:59 14:59 Intake Total 650 / 1340 150 / 1490 710 / 710 Balance 650 / 1340 150 / 1490 710 / 710 Weight last 48 hrs Weight 81.102 kg Weight 82.735 kg Physical Exam 2 Narrative: Pleasant cooperative male GCS 15 Nonfocal neuroexam Left hand status post I&D wrapped with Band-Aid at this time. Wound evaluated by surgeon today. I did not take the dressing down. Nonfocal neuroexam GCS 15 Pleasant and cooperative Data 04/01/24 10:13 04/01/24 10:13 Micro: Microbiology 03/29/24 20:47 Gram Stain - Final Hand - Left Abscess Culture - Preliminary Strep agalactiae - (group b) Gram Negative Rods Coag positive Staphylococcus 03/29/24 20:47 Gram Stain - Final Hand - Left Anaerobic Culture - Preliminary Abscess Culture - Preliminary Coag positive Staphylococcus Gram Negative Rods 03/29/24 20:47 Anaerobic Culture - Preliminary Hand - Left A&P Assessment and plan (1) Cellulitis and abscess of hand: (2) Hypertension: (3) Diabetes: (4) Glaucoma: (5) Peripheral neuropathy: Plan Purulent cellulitis of left hand Patient needs to be covered for anti-MRSA and antipseudomonal since he has fallen on a rested metallic wire Will need orthopedic evaluation in the morning Continue sliding scale with consistent carb diet Opioids along bowel regimen Continue IV fluids Monitor for worsening of cellulitis Full code Consistent carb diet N.p.o. after midnight in case he would go for I&D in the morning Patient is an active smoker smokes 1 pack/day will start nicotine patch 21 mg daily 03/28 ? CT hand performed on admission shows diffuse subcutaneous and deeper soft tissue edema does and/or infiltrative changes of the right hand more prominent around the thenar eminence. There is lack of an enhancing capsular fluid collection regarding significant or drainable abscess. A couple of tiny foci of air density within the soft tissues medial to the proximal phalanx of the thumb could be posttraumatic or associated with underlying soft tissue infection. Soft tissue changes could indicate component of edema and soft tissue infection. ? Continue on broad-spectrum antibiotics vancomycin and aztreonam at this time. ? Will check CRP today and in a.m. ? Will monitor for worsening of cellulitis. ? Consult orthopedic surgery in a.m. for potential I&D if no improvement. ? N.p.o. at midnight today for potential I&D in AM. ? Lovenox 40 for DVT prophylaxis ? Continue atenolol, atorvastatin, gabapentin, lisinopril ? Hold metformin ? Continue eyedrops for glaucoma ? Hold Plavix in case of I&D in AM. ? Sliding scale insulin 04/01 I&D performed 03/29. Wound cultures growing group B strep, gram-negative rods, coagulase positive staph. Final speciation and sensitivities are pending at this time. Continue IV antibiotics at this time. Appreciate recommendations from orthopedic surgery. Tight glucose control ? Continue moderate dose intensity sliding scale insulin Continue Lovenox for DVT prophylaxis Await intraoperative cultures Patient will be reassessed tomorrow for the need for further debridement. CRP ordered for a.m. Reevaluation by orthopedic surgery in AM. Potential debridement in AM if warranted after examination. Attestations 2 Medical Necessity Statement*: Ongoing care right thumb and hand infection Diagnoses Cellulitis and abscess of hand L03.119; L02.519 Hypertension I10 Diabetes E11.9 Glaucoma H40.9 Peripheral neuropathy G62.9
[2024-04-01 16:22] LABS: Glucose Point of Care 214 mg/dL (70-110)
[2024-04-01] MEDS: enoxaparin 40 mg/0.4 mL Syringe SUBCUT (20:08)
[2024-04-01 20:23] LABS: Glucose Point of Care 199 mg/dL (70-110)
[2024-04-02] VITALS (10 sets, daily range): BP systolic 143–173; BP diastolic 70–84; PULSE 55–69; RESP 16–18; TEMP 36.4–37.2; O2SAT 92–98
[2024-04-02 05:53] LABS: Basophils # 0.1 10^3/uL (0.0-0.1); Basophils % 0.7 %; Eosinophils # 0.2 10^3/uL (0.0-0.8); Eosinophils % 2.3 %; Hematocrit 31.5 % (37-53); Lymphocytes % 47.3 %; Mean Corpuscular HGB Conc 31.7 g/dL (30-55); Mean Corpuscular Hemoglobin 31.1 pg (27-33); Mean Corpuscular Volume 97.8 fl (82-101); Mean Platelet Volume 9.3 fL (7.4-10.4); Monocytes # 0.8 10^3/uL (0.2-0.9); Monocytes % 9.8 %; Neutrophils # 3.26 10^3/uL (1.8-7.7); Neutrophils % 38.8 %; Nucleated Red Blood Cells % 0 %; Platelet Count 245 10^3/cmm (157-399); Red Blood Count 3.22 10^6/uL (3.85-5.65); Red Cell Distribution Width 13.5 % (12.1-15.1); White Blood Count 8.38 10^3/uL (3.29-11.43)
[2024-04-02 06:09] LABS: C Reactive Protein 6.2 mg/L (0.0-4.9); Magnesium 1.7 mg/dL (1.7-2.3)
[2024-04-02 06:24] LABS: Vancomycin Trough 17.7 ug/mL (10-15)
[2024-04-02 06:27] LABS: Glucose Point of Care 183 mg/dL (70-110)
[2024-04-02] MEDS: vancomycin 1,000 MG in sodium chloride 0.9% 250 ML 250 MG IV ×2 (06:30→17:48)
[2024-04-02 07:07] LABS: Slide Review Slide Review Perform
[2024-04-02] MEDS: insulin lispro 100 unit/1 mL SUBCUT ×2 (08:39→17:45)
[2024-04-02] MEDS: sennosides-docusate Tablet 1 TAB PO (08:41)
[2024-04-02] MEDS: atorvastatin 40 mg Tablet PO (08:41)
[2024-04-02] MEDS: pantoprazole DR 40 mg Tablet PO (08:41)
[2024-04-02] MEDS: atenolol 50 mg Tablet PO (08:41)
[2024-04-02] MEDS: lisinopril 20 mg Tablet PO (08:41)
[2024-04-02] MEDS: gabapentin 300 mg Capsule PO ×3 (08:41→20:51)
[2024-04-02] MEDS: aztreonam 2,000 MG in sodium chloride 0.9% (plus) 100 ML 200 MG IV (08:41)
[2024-04-02] MEDS: brimonidine 0.2% Op Soln 5 mL Btl 1 DROP EYE-BOTH ×3 (08:42→20:51)
[2024-04-02] MEDS: nicotine 21 mg Patch 1 PATCH TRANSDERMA (08:43)
[2024-04-02] MEDS: timolol 0.5% Op Soln 5 mL Btl 1 DROP EYE-BOTH ×2 (08:52→17:45)
[2024-04-02 12:27] LABS: Glucose Point of Care 118 mg/dL (70-110)
--- NOTE | 2024-04-02 12:47 | P.PN_ITS ---
Subjective 2 Subjective: Seen this morning. Wound culture growing Morganella morganii, Staph aureus and wound cultures. Resistant to aztreonam. Michelle discussed with infectious disease doctor over the phone and switched antibiotics. I have consulted ID as well. Patient to be evaluated by orthopedic surgery today for evaluation of repeat debridement. Patient sitting up comfortably in bed. Vitals/I&O/Wt Last Vital Signs Temp 97.7 F 04/02/24 07:20 Pulse 67 04/02/24 07:20 Resp 18 04/02/24 07:20 BP 173/84 04/02/24 07:20 Pulse Ox 96 04/02/24 07:20 O2 Del Method Room Air 04/02/24 07:20 04/01/24 04/02/24 04/02/24 22:59 06:59 14:59 Intake Total 1190 / 2480 350 / 350 Balance 1190 / 2480 350 / 350 Weight last 48 hrs Weight 80.785 kg Weight 81.102 kg Physical Exam 2 Narrative: Pleasant cooperative male GCS 15 Nonfocal neuroexam Left hand status post I&D wrapped with Band-Aid at this time. Wound evaluated by surgeon today. I did not take the dressing down. Nonfocal neuroexam GCS 15 Pleasant and cooperative Data 04/02/24 05:28 04/01/24 10:13 Micro: Microbiology 03/29/24 20:47 Gram Stain - Final Hand - Left Anaerobic Culture - Preliminary Abscess Culture - Preliminary Staphylococcus aureus Morganella morganii 03/29/24 20:47 Anaerobic Culture - Preliminary Hand - Left 03/27/24 14:37 Blood Culture - Final Blood NO GROWTH AFTER 5 DAYS 03/27/24 14:31 Blood Culture - Final Blood NO GROWTH AFTER 5 DAYS 03/29/24 20:47 Gram Stain - Final Hand - Left Abscess Culture - Preliminary Strep agalactiae - (group b) Gram Negative Rods Coag positive Staphylococcus A&P Assessment and plan (1) Cellulitis and abscess of hand: (2) Hypertension: (3) Diabetes: (4) Glaucoma: (5) Peripheral neuropathy: Plan Purulent cellulitis of left hand Patient needs to be covered for anti-MRSA and antipseudomonal since he has fallen on a rested metallic wire Will need orthopedic evaluation in the morning Continue sliding scale with consistent carb diet Opioids along bowel regimen Continue IV fluids Monitor for worsening of cellulitis Full code Consistent carb diet N.p.o. after midnight in case he would go for I&D in the morning Patient is an active smoker smokes 1 pack/day will start nicotine patch 21 mg daily 03/28 ? CT hand performed on admission shows diffuse subcutaneous and deeper soft tissue edema does and/or infiltrative changes of the right hand more prominent around the thenar eminence. There is lack of an enhancing capsular fluid collection regarding significant or drainable abscess. A couple of tiny foci of air density within the soft tissues medial to the proximal phalanx of the thumb could be posttraumatic or associated with underlying soft tissue infection. Soft tissue changes could indicate component of edema and soft tissue infection. ? Continue on broad-spectrum antibiotics vancomycin and aztreonam at this time. ? Will check CRP today and in a.m. ? Will monitor for worsening of cellulitis. ? Consult orthopedic surgery in a.m. for potential I&D if no improvement. ? N.p.o. at midnight today for potential I&D in AM. ? Lovenox 40 for DVT prophylaxis ? Continue atenolol, atorvastatin, gabapentin, lisinopril ? Hold metformin ? Continue eyedrops for glaucoma ? Hold Plavix in case of I&D in AM. ? Sliding scale insulin 04/02 I&D performed 03/29. Wound cultures growing Morganella, MSSA. Switch antibiotics to Levaquin IV, Flagyl IV. Continue vancomycin IV. Stop aztreonam. Continue antibiotics for another 48 hours. Consults ID. Appreciate recommendations from orthopedic surgery. Tight glucose control ? Continue moderate dose intensity sliding scale insulin Continue Lovenox for DVT prophylaxis Patient will be reassessed tomorrow for the need for further debridement. CRP 6.2 today. Attestations 2 Medical Necessity Statement*: Ongoing care right thumb and hand infection Patient requires IV antibiotics for another 48 hours. Diagnoses Cellulitis and abscess of hand L03.119; L02.519 Hypertension I10 Diabetes E11.9 Glaucoma H40.9 Peripheral neuropathy G62.9
[2024-04-02] MEDS: levofloxacin-dextrose 5 % 750 MG/150 ML PREMIX 100 MG IV (12:51)
--- NOTE | 2024-04-02 13:46 | PC.SOCIAL ---
IMM Updated Updated pt on IMM. No questions voiced. Provided pt a copy. Initialed ,dated, & timed copy in chart.
--- NOTE | 2024-04-02 14:46 | P.PN_ITS ---
Subjective 2 Subjective: Patient seen and examined today he continues to downtrend on his CRP this is half since his last recheck. No evidence of abscess reaccumulation drain was pulled the day he has been n.p.o. since midnight for recheck this point time infectious disease is been consulted per primary team for finalize discharge antibiotic recommendations no orthopedic surgical intervention required at this time. Recommend daily half hydroperoxide half normal saline soaks at this point time Vitals/I&O/Wt Last Vital Signs Temp 98.3 F 04/02/24 12:00 Pulse 55 L 04/02/24 12:00 Resp 18 04/02/24 12:00 BP 150/80 04/02/24 12:00 Pulse Ox 98 04/02/24 12:00 O2 Del Method Room Air 04/02/24 12:00 04/01/24 04/02/24 04/02/24 22:59 06:59 14:59 Intake Total 1190 / 2480 350 / 350 Balance 1190 / 2480 350 / 350 Weight last 48 hrs Weight 178 lb 1.6 oz Weight 178 lb 12.8 oz Physical Exam 2 Narrative: Examination of the left hand: Examination left hand demonstrates dressings subsequently was taken down, patient no significant drainage, overall no evidence of reaccumulation no purulence noted, no proximal tracking erythema patient. No evidence of wound breakdown at this time. Bloody tinged expressible fluid appreciated and on dressing. He is able to wiggle the fingers and subtly flex the thumb. No significant rama tenderness or flexor tendon sheath tenderness along the thumb. Data 04/02/24 05:28 04/01/24 10:13 Micro: Microbiology 03/29/24 20:47 Gram Stain - Final Hand - Left Abscess Culture - Final Strep agalactiae - (group b) Gram Negative Rods Coag positive Staphylococcus 03/29/24 20:47 Gram Stain - Final Hand - Left Anaerobic Culture - Preliminary Abscess Culture - Final Staphylococcus aureus Morganella morganii Strep agalactiae - (group b) 03/29/24 20:47 Anaerobic Culture - Preliminary Hand - Left 03/27/24 14:37 Blood Culture - Final Blood NO GROWTH AFTER 5 DAYS 03/27/24 14:31 Blood Culture - Final Blood NO GROWTH AFTER 5 DAYS A&P Assessment and plan (1) Cellulitis and abscess of hand: (2) Diabetes: (3) Peripheral neuropathy: Plan Dressing taken down-continues to look clinically stable no signs of reaccumulation of abscess Patient's been n.p.o. since midnight Recheck of CRP continue downtrended to 6 today No white count Internal medicine on board as primary IV antibiotics per primary No orthopedic surgical intervention at this time Continue to follow cultures-culture showing Staph aureus Morganella Yaniv I as well as strep agalactiae (infectious disease consulted per primary Ortho will continue to be on board. No further orthopedic intervention at this time required would recommend it daily half hydroperoxide half normal saline soaks followed by cleaning and drying this out and placement of a bulky dry dressing with a some thumb spica splint Orthopedics will continue to follow Patient understands agrees to current plan. All questions answered. Attestations 2 Medical Necessity Statement*: Ongoing care status post left thumb/hand I&D for left thumb and hand infection Coding Level of Care Code Acute Code for [facility] Fwd Diagnoses Cellulitis and abscess of hand L03.119; L02.519 Diabetes E11.9 Peripheral neuropathy G62.9 Time Spent (min) 20
[2024-04-02] MEDS: metroNIDAZOLE IV 500 MG/100 ML PREMIX 100 MG IV (16:52)
[2024-04-02 16:57] LABS: Glucose Point of Care 168 mg/dL (70-110)
[2024-04-02 20:19] LABS: Glucose Point of Care 267 mg/dL (70-110)
[2024-04-02] MEDS: enoxaparin 40 mg/0.4 mL Syringe SUBCUT (20:51)
[2024-04-03] MEDS: metroNIDAZOLE IV 500 MG/100 ML PREMIX 100 MG IV (00:10)
[2024-04-03 04:00] VITALS: BP 139/66; PULSE 64; RESP 18; TEMP 37; O2SAT 97
[2024-04-03 05:32] LABS: Basophils # 0.1 10^3/uL (0.0-0.1); Basophils % 0.6 %; Eosinophils # 0.1 10^3/uL (0.0-0.8); Eosinophils % 1.5 %; Hematocrit 30.7 % (37-53); Lymphocytes # 3.9 10^3/uL (0.8-4.8); Lymphocytes % 45.8 %; Mean Corpuscular HGB Conc 33.6 g/dL (30-55); Mean Corpuscular Hemoglobin 32.1 pg (27-33); Mean Corpuscular Volume 95.6 fl (82-101); Mean Platelet Volume 8.7 fL (7.4-10.4); Monocytes # 0.7 10^3/uL (0.2-0.9); Monocytes % 8.1 %; Neutrophils # 3.62 10^3/uL (1.8-7.7); Nucleated Red Blood Cells % 0 %; Platelet Count 218 10^3/cmm (157-399); Red Blood Count 3.21 10^6/uL (3.85-5.65); Red Cell Distribution Width 13.9 % (12.1-15.1); White Blood Count 8.42 10^3/uL (3.29-11.43)
[2024-04-03] MEDS: vancomycin 1,000 MG in sodium chloride 0.9% 250 ML 250 MG IV (05:41)
[2024-04-03 05:53] LABS: Anion Gap 12.8 (5-19); Blood Urea Nitrogen 17 mg/dL (8-23); Calcium 8.2 mg/dL (8.5-10.5); Carbon Dioxide 25 mmol/L (22-29); Chloride 105 mmol/L (98-107); Creatinine Clr Calc Pharmacy 83.5298; Glucose 193 mg/dL (65-115); Osmolality Calculated 295 mOsm/kg (285-295); Potassium 3.8 mmol/L (3.5-5.1); Sodium 139 mmol/L (136-145)
[2024-04-03 05:57] LABS: Slide Review Slide Review Perform
[2024-04-03 06:19] LABS: Glucose Point of Care 197 mg/dL (70-110)
[2024-04-03 07:33] VITALS: BP 180/71; PULSE 62; TEMP 36.5; O2SAT 95
[2024-04-03] MEDS: insulin lispro 100 unit/1 mL SUBCUT (08:18)
[2024-04-03 08:53] VITALS: PULSE 62; RESP 18; O2SAT 95
[2024-04-03] MEDS: nicotine 21 mg Patch 1 PATCH TRANSDERMA (09:03)
[2024-04-03] MEDS: lisinopril 20 mg Tablet PO (09:03)
[2024-04-03] MEDS: atenolol 50 mg Tablet PO (09:04)
[2024-04-03] MEDS: sennosides-docusate Tablet 1 TAB PO (09:04)
[2024-04-03] MEDS: gabapentin 300 mg Capsule PO (09:04)
[2024-04-03] MEDS: atorvastatin 40 mg Tablet PO (09:04)
[2024-04-03] MEDS: pantoprazole DR 40 mg Tablet PO (09:04)
[2024-04-03] MEDS: brimonidine 0.2% Op Soln 5 mL Btl 1 DROP EYE-BOTH (09:05)
[2024-04-03] MEDS: timolol 0.5% Op Soln 5 mL Btl 1 DROP EYE-BOTH (09:05)
--- NOTE | 2024-04-03 09:33 | PM.CONSULT ---
Providers/Reason For Consult Consulting Physician/Specialty*: Evy Broderick MD/ infectious Disease Reason for Consult*: hand infection , duration of abx Requesting Physician: Tyra Gallo MD Attending Physician: Tyra Gallo MD Primary Care Provider: Rosita Sam MD History of Present Illness History of Present Illness Carlos Alberto Suárez is a 78 year old male Who was admitted to the hospital for a left hand infection. Patient sustained an injury to his left hand while working around 2 weeks ago. He landed his hand against a dog pen and got several scrapes and bruises. There was no dog bite at the site, however he has been playing with his dog who does occasionally lick his hand. Over the next few days patient's hand started to become more swollen warm and erythematous. This brought him to the emergency room on March 27, 2024. He has had a tetanus vaccine in the past year. CT of his hand showed no underlying abscess, no acute osseous abnormality however did show diffuse subcutaneous and deep soft tissue edematous or infiltrative changes of the right hand most prominent around the thenar eminence. He was evaluated by orthopedic surgery and underwent left hand I&D on March 29, 2024. Intraoperatively he was found to have extensive abscess of the thenar eminence musculature with a collar-button abscess in the first intermetacarpal space. Infection extended proximally into the thenar muscle but not into the carpal tunnel. There was evidence of flexor tenosynovitis of the left thumb. Patient underwent decompression, cultures were taken which have revealed MSSA, Streptococcus group B and Morganella Yaniv I. He has been getting half hydroperoxide half normal saline soak. Per review of notes and patient's description the hand is improving in appearance. Patient is able to move his fingers and attempts to flex his thumb. Rocio drain was removed on . CRP has trended down to normal. He has sutures in place. Patient is a known diabetic, last A1c at 7.0. No injuries at any other site. Patient has been on treatment with aztreonam and vancomycin thus far. Susceptibility testing shows Morganella is being resistant to aztreonam. Case was discussed with Dr. Gallo yesterday at which point it was recommended to switch aztreonam to fluoroquinolones and add anaerobic coverage. Patient is currently on levofloxacin 750 mg daily, metronidazole 500 mg IV every 8 hours and IV vancomycin. He reports a history of childhood allergy. He states he received a shot of penicillin and had hallucinations afterwards. There is no history of anaphylaxis. He does not recall the exact details of what happened as it was several years ago when he was a child. He does not know if he has ever tried amoxicillin Augmentin or any cephalosporin in the past. He is willing to try cephalosporins at this present time. Review of Systems General: Reports: 10 or more systems reviewed and unremarkable except in HPI and below Const: Denies: fever(s), chills or body aches Eyes: Denies: change in vision, blurry vision or photophobia ENMT: Reports: hoarseness; Denies: throat pain, enlarged tonsils, odynophagia or nasal congestion Card: Denies: chest pain, palpitations, irregular heart rhythm, edema, swelling of feet/ankles, lightheadedness, pre-syncope, dyspnea on exertion or orthopnea Resp: Denies: dyspnea, productive cough, non-productive cough, wheezing, stridor, pain on inspiration, change in phlegm color, hemoptysis or chest congestion GI: Denies: abdominal pain, nausea, vomiting, hematemesis, coffee ground emesis, dysphagia, heartburn, diarrhea, constipation, GI cramping, change in stool character, hematochezia or melena : Denies: flank pain, dysuria, urinary frequency, urinary urgency, urinary hesitancy or hematuria Musc: Denies: neck pain, back pain, extremity pain, joint swelling, joint warmth or deformity Neuro: Denies: headache(s), numbness in extremities, weakness in extremities, sensory changes, difficulty walking, frequent falls, dizziness, vertigo, behavioral changes, Slurred speech present or seizure-like activity Psych: Denies: anxiety, depression, suicidal ideation or homicidal ideation Endo: Denies: polyuria, polydipsia, tired all the time, cold intolerance or hot flashes Ry/Lymph: Denies: easy bruising or easy bleeding Medications/Allergies Home Medications Medication Instructions Recorded Confirmed Last Taken Type ascorbic acid (vitamin C) 100 mg 100 mg PO DAILY 03/28/24 03/28/24 Unknown History tablet atenolol 50 mg tablet 50 mg PO DAILY 03/28/24 03/28/24 Unknown History atorvastatin 80 mg tablet 40 mg PO DAILY 03/28/24 03/28/24 Unknown History brimonidine 0.15 % eye drops 1 drp ophthalmic (eye) TID 03/28/24 03/28/24 Unknown History brimonidine 0.2 % eye drops 1 drp ophthalmic (eye) TID 03/28/24 03/28/24 Unknown History clopidogrel 75 mg tablet 75 mg PO DAILY 03/28/24 03/28/24 Unknown History gabapentin 300 mg capsule 300 mg PO TID 03/28/24 03/28/24 Unknown History insulin aspart U-100 100 unit/mL 10 unit SUBCUT TID 03/28/24 03/28/24 Unknown History (3 mL) subcutaneous pen (Novolog FlexPen U-100 Insulin aspart) insulin glulisine U-100 100 See Rx Instructions .Route .COMPLEX 03/28/24 03/28/24 Unknown History unit/mL subcutaneous pen latanoprost 0.005 % eye drops 1 drp ophthalmic (eye) BEDTIME 03/28/24 03/28/24 Unknown History lisinopril 20 mg tablet 20 mg PO DAILY 03/28/24 03/28/24 Unknown History meloxicam 7.5 mg tablet 7.5 mg PO DAILY 03/28/24 03/28/24 Unknown History metformin 850 mg tablet 850 mg PO BID 03/28/24 03/28/24 Unknown History omega 7-ajc-wcc-fish oil 1,600 5 ml PO DAILY 03/28/24 03/28/24 Unknown History mg-500 mg-800 mg/5 mL oral liquid (Fish Oil) omeprazole 20 mg capsule,delayed 20 mg PO DAILY 03/28/24 03/28/24 Unknown History release timolol maleate 0.5 % eye drops 1 drp ophthalmic (eye) BID 03/28/24 03/28/24 Unknown History Allergies Allergy/AdvReac Type Severity Reaction Status Date / Time Penicillins Allergy Unknown Verified 03/27/24 11:46 Current Medications Generic Name Dose Route Start Last Admin Trade Name Freq PRN Reason Stop Dose Admin Atenolol 50 mg 03/29/24 09:00 04/03/24 09:04 Atenolol 50 Mg Tablet PO 50 mg DAILY [facility] Administration Atorvastatin Calcium 40 mg 03/29/24 09:00 04/03/24 09:04 Atorvastatin 40 Mg Tablet PO 40 mg DAILY [facility] Administration Brimonidine Tartrate 1 drop 03/28/24 15:00 04/03/24 09:05 Brimonidine 0.2% Op Soln 5 Ml Btl EYE-BOTH 1 drop TID [facility] Administration Enoxaparin Sodium 40 mg 03/27/24 19:51 04/02/24 20:51 Enoxaparin 40 Mg/0.4 Ml Syringe SUBCUT 40 mg Q24H [facility] Administration Gabapentin 300 mg 03/28/24 15:00 04/03/24 09:04 Gabapentin 300 Mg Capsule PO 300 mg TID [facility] Administration Vancomycin HCl 1,000 mg/ 250 mls @ 250 mls/hr 03/29/24 17:30 04/03/24 06:52 Sodium Chloride IV Infused Q12H [facility] Infusion Levofloxacin/Dextrose 750 mg in 150 mls @ 100 mls/hr 04/02/24 11:15 04/02/24 19:21 Levaquin-D5w IV Infused Q24H [facility] Infusion Protocol Metronidazole 500 mg in 100 mls @ 100 mls/hr 04/02/24 11:15 04/03/24 01:25 Flagyl Iv IV Infused Q8H [facility] Infusion Protocol Insulin Human Lispro 0 unit 03/28/24 08:00 04/03/24 08:18 Insulin Lispro 100 Unit/1 Ml SUBCUT 6 unit TIDWM [facility] Administration Protocol Lisinopril 20 mg 03/29/24 09:00 04/03/24 09:03 Lisinopril 20 Mg Tablet PO 20 mg DAILY [facility] Administration Nicotine 1 patch 03/28/24 09:00 04/03/24 09:03 Nicotine 21 Mg Patch TRANSDERMA 1 patch DAILY [facility] Administration Pantoprazole Sodium 40 mg 03/29/24 09:00 04/03/24 09:[address] 40 Mg Tablet PO 40 mg DAILY [facility] Administration Senna/Docusate Sodium 1 tab 03/28/24 09:00 04/03/24 09:04 Sennosides-Docusate Tablet PO 1 tab DAILY [facility] Administration Timolol Maleate 1 drop 03/28/24 18:00 04/03/24 09:05 Timolol 0.5% Op Soln 5 Ml Btl EYE-BOTH 1 drop BID [facility] Administration PFSH Acute PFSH: Medical History Hypertension Diabetes Vitals/I&O/Wt Last Vital Signs Temp 97.7 F 04/03/24 07:33 Pulse 62 04/03/24 08:53 Resp 18 04/03/24 08:53 BP 180/71 04/03/24 07:33 Pulse Ox 95 04/03/24 08:53 O2 Del Method Room Air 04/03/24 08:53 04/02/24 04/03/24 04/03/24 22:59 06:59 14:59 Intake Total 1460 / 1810 830 / 2640 Balance 1460 / 1810 830 / 2640 Weight last 48 hrs Weight 80.104 kg Weight 80.785 kg Physical Exam Narrative: General: No acute distress, AO x3 HEENT: PERRLA, pupils bilaterally equal and reactive, pallors not present Chest: Normal vesicular breath sounds, no added sounds, equal good air entry bilaterally CVS: S1-S2 regular, no murmurs, no tachycardia, no gallops, no rubs Abdomen: Soft, nontender, no organomegaly, bowel sounds present Neuro: No focal deficits, no facial deformity, AO x3, power 5/5 in all limbs Data 04/03/24 05:25 04/03/24 05:25 Micro: Microbiology 03/29/24 20:47 Gram Stain - Final Hand - Left Abscess Culture - Final Strep agalactiae - (group b) Gram Negative Rods Coag positive Staphylococcus 03/29/24 20:47 Gram Stain - Final Hand - Left Anaerobic Culture - Preliminary Abscess Culture - Final Staphylococcus aureus Morganella morganii Strep agalactiae - (group b) 03/29/24 20:47 Anaerobic Culture - Preliminary Hand - Left NAME: Jose ArmandoCarlos Alberto D LOC: [facility] U #: [id number] AGE/SX: 78/M ROOM: 278 RE03/27/[address]: Tyra Gallo MD : 1945 BED: 1 DIS: FAX #: STATUS: ADM IN TLOC: Spec #: [id number] Alexa: 03/29/24 Status: RES Req #: [id number] Recd: 03/29/[address]: Mateusz, George Src: Hand SpDesc: Left Ordered: Absces Cult&GS, Anaer Comments: Comment LEFT HAND/THUMB ABSCESS C/S GRAM STAIN #2 AEROBES Comment LEFT HAND/THUMB ABSCESS ANAEROBES Procedure Result Verified Site Gram Stain Final 03/30/24-1711 Result NO WHITE BLOOD CELLS SEEN NO ORGANISMS SEEN Anaerobic Culture Preliminary 04/02/24-1100 DAY 3, RESULTS TO FOLLOW Anaerobic Culture Preliminary (changed) 04/01/24-172 NO ANAEROBES ISOLATED ON DAY 2 Anaerobic Culture Preliminary (changed) 03/31/24-1130 NO ANAEROBES ISOLATED ON DAY 1 Abscess Culture Final 04/02/24-1340 Organism 1 Staphylococcus aureus Growth MODERATE Organism 2 Morganella morganii Growth FEW Organism 3 Strep agalactiae - (group b) Growth FEW Strep Typing Strep Typing FEW MIXED SUPERFICIAL SONY ON DAY 3 CRITICAL RESULT YES/NO: YES CRITICAL CALLED BY: MALIK TO AND READ BACK BY: [email or web address] DATE: 04/01/24 TIME: 1509 S aureus M morganii S aga(gr b M.I.C. RX M.I.C. RX M.I.C. RX --------- ------ --------- ------ --------- ------ * Amikacin <=16 S * Ampicillin/Sulbactam >16/8 R * Aztreonam >16 R * Cefepime <=8 S * Ceftriaxone <=1 S * Ciprofloxacin <=1 S <=1 S * Clindamycin <=0.5 S * Erythromycin <=0.5 S * Gentamicin <=4 S <=2 S * Imipenem 4 R * Levofloxacin <=1 S <=2 S >4 R * Linezolid 4 S <=1 S * Moxifloxacin <=0.5 S * Oxacillin 0.5 S * Penicillin >8 R <=0.03 S * Rifampin <=1 S * Tetracycline >8 R <=4 S * Trimethoprim/Sulfamethoxazole <=0.5/9.5 S <=2/38 S Vancomycin 2 S 0.5 S * Piperacillin/Tazobactam <=16 S Daptomycin <=0.5 S <=0.5 S Abscess Culture Preliminary (changed) 04/01/24-151 NAME: Carlos Alberto Suárez Sai LOC: [facility] U #: [id number] AGE/SX: 78/M ROOM: 278 RE03/27/[address]: Tyra Gallo MD : 1945 BED: 1 DIS: FAX #: STATUS: ADM IN TLOC: Spec #: [id number] Alexa: 03/29/24 Status: RES Req #: [id number] Recd: 03/29/[address]: George Child Src: Hand SpDesc: Left Ordered: Anaer Comments: Comment LEFT HAND/THUMB ABSCESS C/S GRAM STAIN Procedure Result Verified Site Anaerobic Culture Preliminary 04/02/24-1052 DAY 3, RESULTS TO FOLLOW Anaerobic Culture Preliminary (changed) 04/01/24-1719 NO ANAEROBES ISOLATED ON DAY 2 Anaerobic Culture Preliminary (changed) 03/31/24-1122 NO ANAEROBES ISOLATED ON DAY 1 NAME: SuárezCarlos Alberto gomes LOC: [facility] #: [id number] AGE/SX: 78/M ROOM: [facility] RE03/27/[address]: Tyra Gallo MD : 1945 BED: 1 DIS: FAX #: STATUS: ADM IN TLOC: Spec #: [id number] Alexa: 03/27/24 Status: COMP Req #: [id number] Recd: 03/27/[address]: Chuck Abel DO Src: Blood SpDesc: Ordered: Bcult Procedure Result Verified Site Blood Culture Final 04/01/24 NO GROWTH AFTER 5 DAYS Blood Culture Preliminary (changed) 03/28/24-1455 NEGATIVE TO DATE Blood Culture Preliminary (changed) 03/27/24-150 SPECIMEN COLLECTED NAME: Jose ArmandoCarlos Alberto LOC: [facility] U #: [id number] AGE/SX: 78/M ROOM: 278 RE03/27/[address]: Tyra Gallo MD : 1945 BED: 1 DIS: FAX #: STATUS: ADM IN TLOC: Spec #: [id number] Alexa: 03/29/24 Status: COMP Req #: [id number] Recd: 03/29/[address]: George Child Src: Hand SpDesc: Left Ordered: Absces Cult&GS Comments: Comment LEFT HAND/THUMB ABSCESS C/S GRAM STAIN Procedure Result Verified Site Gram Stain Final 03/30/24-1710 Result RARE WHITE BLOOD CELLS NO ORGANISMS SEEN Abscess Culture Final 04/02/24-134 Organism 1 Strep agalactiae - (group b) Growth MODERATE Strep Typing Strep Typing Organism 2 Gram Negative Rods Growth FEW Organism 3 Coag positive Staphylococcus Growth FEW FEW MIXED SUPERFICIAL SONY ON DAY 3 ID AND SENSITIVITIES TO BE REPORTED ON [id number] Abscess Culture Preliminary (changed) 04/01/24-111 Organism 1 Strep agalactiae - (group b) Growth MODERATE Strep Typing Strep Typing Organism 2 Gram Negative Rods Growth FEW Organism 3 Coag positive Staphylococcus Growth FEW FEW MIXED SUPERFICIAL SONY ON DAY 2 SENSITIVITIES TO BE REPORTED ON [id number] Abscess Culture Preliminary (changed) 03/31/24-1819 Organism 1 Strep agalactiae - (group b) Growth MODERATE Strep Typing Strep Typing Organism 2 Gram Negative Rods Growth FEW FEW MIXED SUPERFICIAL SONY ON DAY 1 Other data: Date of Service: 03/27/24 Procedure(s): CT hand LT w con [id number] CT/CT hand LT w con [id number] IMPRESSION: 1. Moderate degenerative changes. No fracture or acute osseous abnormality. 2. Diffuse subcutaneous and deeper soft tissue edematous and/or infiltrative changes of the right hand, and more prominent around the thenar eminence. There is lack of an enhancing capsular fluid collection regarding significant or drainable abscess. A couple of tiny foci of air density within the soft tissues medial to the proximal phalanx of the thumb could be posttraumatic or associated with underlying soft tissue infection. Soft tissue changes could indicate component of edema and soft tissue infection. A&P Assessment and plan (1) Cellulitis and abscess of hand: 78-year-old male with history of diabetes, trauma to the left hand from a dog pen, thereafter possible animal licks over open wound. CT and IntraOp findings as described above. Patient is status post I&D of the hand with orthopedics on March 29, 2024. Per review of notes and patient's own description there has been improvement in the left hand swelling. At the time of examination today there continues to be swelling around the left thenar eminence, left thumb and over the index finger medially, there is a healing incision with sutures in place along the thenar eminence. Overall wound currently looks clean dry and intact. No evidence of bony destruction on imaging. CRP has trended down to normal. Patient has thus far been on treatment with aztreonam, vancomycin which changed to levofloxacin vancomycin and metronidazole on April 02, 2024. Given overall clinical improvement, would be appropriate to discharge on oral antibiotics at this time Recommend discharge on cefadroxil 1 g p.o. twice daily, Cipro 500 mg p.o. twice daily and metronidazole 500 mg p.o. twice daily for the next 10 days. Follow-up arranged with infectious disease clinic on April 10, 2024 at 12 PM. Patient instructed to call the infectious disease office or report to the nearest ER immediately for any signs of worsening infection such as increasing discharge increasing swelling, fever 101 Fahrenheit or higher as it may indicate failure of oral antibiotics with the need to switch to IV antibiotics at that time. Patient acknowledges understanding, wants me to discuss the care plan with his who is not currently available at bedside. I did call the 's number and left a voicemail for her to call us back to go over patient's detailed care plan. Blood cultures are negative to date. He will receive first dose of oral cephalosporin while in the hospital reaction. If tolerates the oral cephalosporin, may be discharged with cefadroxil combination with other antibiotics as described above. Consult Attestations Medical Necessity Statement: Per admitting Coding Level of Care Code Acute Code for [facility] Fwd High MDM includes number and complexity of problems actively addressed during encounter, amount and/or complexity of data reviewed/ordered and described risk of complication, morbidity or mortality of management as documented Diagnoses Cellulitis and abscess of hand L03.119; L02.519
[2024-04-03] MEDS: cefUROXime 250 mg Tablet 500 MG PO (10:22)
--- NOTE | 2024-04-03 10:49 | PM.DCS ---
Discharge Providers Date of Admission: 03/27/24 18:22 Date of Discharge: April 03, 2024 Attending Provider at Admission: Tyra Gallo MD Attending Provider at Discharge: Tyra Gallo MD Primary Care Provider: Rosita Sam MD Diagnoses at Discharge Discharge Diagnosis (1) Cellulitis and abscess of hand: Status: Acute Reason for Visit Reason for Visit: lt hand inj Hospital Course Hospital Course Patient presented with purulent cellulitis of left hand after falling on a rusted metallic wire dog pain. He was kept on vancomycin and aztreonam. After 48 hours of IV antibiotics there was not much improvement and purulence increased therefore orthopedic surgery was consulted. Patient was taken for debridement to the OR. Intraoperative cultures were obtained which grew Morganella morganii resistant to Carbapenem class. Infectious disease was consulted. Patient was sent home on Levaquin, Flagyl and cefadroxil. During hospitalization he was evaluated by orthopedic surgery 3 times for further possible repeat debridement however after evaluation it was not warranted. Being a diabetic patient was managed with IV antibiotics during hospitalization and wound dressing was changed daily. CRP finally came down to normal. Patient was discharged home on oral antibiotics and asked to follow-up with infectious disease as an outpatient. Physical Exam Narrative: General: No acute distress, AO x3 HEENT: PERRLA, pupils bilaterally equal and reactive, pallors not present Chest: Normal vesicular breath sounds, no added sounds, equal good air entry bilaterally CVS: S1-S2 regular, no murmurs, no tachycardia, no gallops, no rubs Abdomen: Soft, nontender, no organomegaly, bowel sounds present Neuro: No focal deficits, no facial deformity, AO x3, power 5/5 in all limbs Dressing change was performed by nursing staff and patient was evaluated by orthopedic surgery prior to discharge. Discharge Data Studies Completed and Pending Completed Studies During Hospitalization Category Date Time Status CT hand LT w con [id number] Stat Cat Scan 03/27/24 14:15 Completed XR hand LT min 3V* [id number] Stat Exams 03/27/24 14:08 Completed Pending at discharge Category Date Time Status Abscess Culture and Gram Stain Routine Lab 03/29/24 20:47 Results Anaerobic Culture Routine Lab 03/29/24 20:47 Results Anaerobic Culture Routine Lab 03/29/24 20:47 Results Radiology Impressions Hand X-Ray 03/27/24 14:08 IMPRESSION: Moderate degenerative changes. No fracture or dislocation is seen. Hand CT 03/27/24 14:15 IMPRESSION: 1. Moderate degenerative changes. No fracture or acute osseous abnormality. 2. Diffuse subcutaneous and deeper soft tissue edematous and/or infiltrative changes of the right hand, and more prominent around the thenar eminence. There is lack of an enhancing capsular fluid collection regarding significant or drainable abscess. A couple of tiny foci of air density within the soft tissues medial to the proximal phalanx of the thumb could be posttraumatic or associated with underlying soft tissue infection. Soft tissue changes could indicate component of edema and soft tissue infection. Laboratory Results WBC 8.42 10^3/uL (3.29-11.43) 04/03/24 05:25 RBC 3.21 10^6/uL (3.85-5.65) L 04/03/24 05:25 Hgb 10.30 g/dL (11.27-16.99) L 04/03/24 05:25 Hct 30.7 % (37-53) L 04/03/24 05:25 MCV 95.6 fl (82-101) 04/03/24 05:25 MCH 32.1 pg (27-33) 04/03/24 05:25 MCHC 33.6 g/dL (30-55) D 04/03/24 05:25 RDW 13.9 % (12.1-15.1) 04/03/24 05:25 Plt Count 218 10^3/cmm (157-399) 04/03/24 05:25 MPV 8.7 fL (7.4-10.4) 04/03/24 05:25 Neut % (Auto) 43.0 % 04/03/24 05:25 Lymph % (Auto) 45.8 % 04/03/24 05:25 [place] % (Auto) 8.1 % 04/03/24 05:25 Eos % (Auto) 1.5 % 04/03/24 05:25 Baso % (Auto) 0.6 % 04/03/24 05:25 Neut # (Auto) 3.62 10^3/uL (1.8-7.7) 04/03/24 05:25 Lymph # (Auto) 3.9 10^3/uL (0.8-4.8) 04/03/24 05:25 [place] # (Auto) 0.7 10^3/uL (0.2-0.9) 04/03/24 05:25 Eos # (Auto) 0.1 10^3/uL (0.0-0.8) 04/03/24 05:25 Baso # (Auto) 0.1 10^3/uL (0.0-0.1) 04/03/24 05:25 Nucleated RBC % (auto) 0 % 04/03/24 05:25 Nucleated RBCs # 0.0 /100WBC 04/03/24 05:25 ESR 41 mm/hr (0-10) H 03/28/24 14:31 Sodium 139 mmol/L (136-145) 04/03/24 05:25 Potassium 3.8 mmol/L (3.5-5.1) 04/03/24 05:25 Chloride 105 mmol/L (98-107) 04/03/24 05:25 Carbon Dioxide 25 mmol/L (22-29) 04/03/24 05:25 Anion Gap 12.8 (5-19) 04/03/24 05:25 BUN 17 mg/dL (8-23) 04/03/24 05:25 Creatinine 0.8 mg/dL (0.7-1.2) 04/03/24 05:25 GFR Calculation Not Reportable 04/03/24 05:25 Glucose 193 mg/dL (65-115) H 04/03/24 05:25 POC Glucose 197 mg/dL (70-110) H 04/03/24 06:02 Estimat Average Glucose 154 03/27/24 14:31 Hemoglobin A1c 7.0 % (4.0-6.0) H 03/27/24 14:31 Calculated Osmolality 295 mOsm/kg (285-295) 04/03/24 05:25 Calcium 8.2 mg/dL (8.5-10.5) L 04/03/24 05:25 Magnesium 1.7 mg/dL (1.7-2.3) 04/02/24 05:28 Total Bilirubin 0.3 mg/dL (0.15-1.2) 04/01/24 10:13 AST 28 U/L (0-40) 04/01/24 10:13 ALT 20 U/L (0-41) 04/01/24 10:13 Alkaline Phosphatase 93 U/L (40-130) 04/01/24 10:13 C-Reactive Protein 6.2 mg/L (0.0-4.9) H 04/02/24 05:28 Total Protein 6.3 g/dL (6.6-8.7) L 04/01/24 10:13 Albumin 3.4 g/dL (3.5-5.2) L 04/01/24 10:13 Globulin 2.9 g/dL (1.3-4.6) 04/01/24 10:13 Procalcitonin 0.06 ng/mL (0-0.5) 03/28/24 14:31 Vancomycin Trough 17.7 ug/mL (10-15) H 04/02/24 05:28 Vitals Last Vital Signs Temp 97.7 F 04/03/24 07:33 Pulse 62 04/03/24 08:53 Resp 18 04/03/24 08:53 BP 180/71 04/03/24 07:33 Pulse Ox 95 04/03/24 08:53 O2 Del Method Room Air 04/03/24 08:53 Discharge Plan Discharge Patient Disposition: Home Condition: Stable Prescriptions: New cefadroxil 1 gram tablet 1,000 mg PO BID 10 Days Qty: 20 0RF ciprofloxacin HCl [Cipro] 500 mg tablet 500 mg PO BID 7 Days Qty: 14 0RF metronidazole 500 mg tablet 500 mg PO BID 10 Days Qty: 20 0RF Continued latanoprost 0.005 % drops 1 drp ophthalmic (eye) BEDTIME brimonidine 0.2 % drops 1 drp ophthalmic (eye) TID gabapentin 300 mg Capsule 300 mg PO TID Rx Instructions: take 1 capsule by mouth every morning and two every evening timolol maleate 0.5 % drops 1 drp ophthalmic (eye) BID atenolol 50 mg tablet 50 mg PO DAILY brimonidine 0.15 % drops 1 drp ophthalmic (eye) TID insulin aspart U-100 [Novolog FlexPen U-100 Insulin] 100 unit/mL (3 mL) Insulin Pen 10 unit SUBCUT TID insulin glulisine U-100 100 unit/mL Insulin Pen See Rx Instructions .ROUTE .COMPLEX Rx Instructions: inject 55 units ;sq; every evening before meal to lower cholesterol atorvastatin 80 mg Tablet 40 mg PO DAILY lisinopril 20 mg Tablet 20 mg PO DAILY metformin 850 mg Tablet 850 mg PO BID Rx Instructions: take 1 tablet by mouth twice daily with meals to lower blood sugar clopidogrel 75 mg Tablet 75 mg PO DAILY meloxicam 7.5 mg Tablet 7.5 mg PO DAILY ascorbic acid (vitamin C) 100 mg Tablet 100 mg PO DAILY omeprazole 20 mg Capsule,Delayed Release(Dr/Ec) 20 mg PO DAILY Fish Oil 1,600-500-800 mg/5 mL Liquid 5 ml PO DAILY Discharge Orders: Discharge Order (Routine); Ordered 04/03/24 Ordered By: Tyra Gallo Referrals: [facility] [Provider Group] - 04/10/24 12:00 pm Rosita Sam MD [Primary Care Provider] - (We have notified your physician's clinic of the need for a follow-up appointment to be scheduled. If you have not heard from them within the next 2 business days, please call them directly. ) Gal Child PA [Physician Certified Low Vision Therapist] - 04/20/24 8:45 am Discharge Diet: Cardiac and Diabetic Discharge Activity: Resume usual activity Patient Instructions: Cefadroxil (By mouth), Ciprofloxacin (By mouth), Metronidazole (By mouth), Acute Wound Care (DC), Opioid Safety, Post Anesthesia Care Activity Restrictions/Additional Instructions: Daily half hydroperoxide half normal saline soaks followed by cleaning and drying this out and placement of a bulky dry dressing with a some thumb spica splint for 5 days After that replaced with a dry dressing after the 5 days with just simple daily dressing changes. Recommend follow-up with orthopedics in 2 weeks Contact the orthopedic office any questions or concerns if there is any significant worsening of drainage and worsening pain feel free to contact orthopedics for a sooner visit or report to the emergency department Take antibiotics as prescribed Recommend nonweightbearing to the left hand Elevation as needed Discharge Attestations Time Spent in Discharge Care*: greater than 30 min Quality Metrics Clinical Quality Measures [ No reported AMI, CVA or VTE this stay] Coding Level of Care Code Acute Code for Chg Fwd Diagnoses Cellulitis and abscess of hand L03.119; L02.519
[2024-04-03 11:54] VITALS: PULSE 62; RESP 18; O2SAT 95
== END 2024-04-03 11:55 | disposition home or self-care (01) | DRG 982 ==
LOC: ER 18:14 → MEDSURG 18:23
PROVIDERS: Internal Medicine; Student in an Organized Health Care Education/Training Program; Admitting Provider Internal Medicine; Emergency Provider Family Medicine; PCP Family Medicine; Visit Provider Internal Medicine
PROC: 0K9D0ZZ Drainage of Left Hand Muscle, Open Approach (ICD-10-PCS; principal; 2024-03-29 17:30)
DX: L03.012 Cellulitis of left finger (principal); L02.512 Cutaneous abscess of left hand; Z16.39 Resistance to other specified antimicrobial drug; W18.30XA Fall on same level, unspecified, initial encounter; E11.9 Type 2 diabetes mellitus without complications; I10 Essential (primary) hypertension; H40.9 Unspecified glaucoma; G62.9 Polyneuropathy, unspecified; K21.9 Gastro-esophageal reflux disease without esophagitis; E78.5 Hyperlipidemia, unspecified; Z79.4 Long term (current) use of insulin; M65.842 Other synovitis and tenosynovitis, left hand; B95.61 Methicillin susceptible Staphylococcus aureus infection as the cause of diseases classified elsewhere
CPT/HCPCS: 36415; 36416; 73130; 73201; 80048; 80053; 80202; 82962; 83036; 83735; 84145; 85025; 85651; 86140; 87040; 87070; 87075; 87077; 87186; 87205; 96365; 96372; 99285; J0330; J1100; J1650; J1815; J1956; J2270; J2405; J2704; J3010; J3370; J3475; J3490; J7030; J7050

== ENCOUNTER → 2024-04-10 11:04 | Outpatient (BNVA) | payer OTHER, SELFPAY | PROVIDERS: PCP Family Medicine; Visit Provider Student in an Organized Health Care Education/Training Program | DX: L02.512 Cutaneous abscess of left hand | CPT/HCPCS: 87070; 87075; 87205; 99205 ==

== ENCOUNTER 2024-04-11 11:34 | Outpatient (CLI) | payer OTHER, SELFPAY ==
--- NOTE | 2024-04-11 12:00 | CT_ITS ---
WS: [id number] Contrast-enhanced CT LEFT hand TECHNIQUE: Contrast-enhanced CT LEFT hand with coronal and sagittal reformatted images. CLINICAL INFORMATION: follow up hand infection/abscess COMPARISON: 03/27/2024 DLP: 145.[address] scans at [facility] use at least one of these dose optimization techniques: automated e xposure control; mA and/or kV adjustment per patient size (includes targeted exams where dose is matc hed to clinical indication); or iterative reconstruction. FINDINGS: Degenerative narrowing radiocarpal joint. 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 Hypertroph ic spurring involving the metacarpal heads worse involving the second and third metacarpal heads. Deg enerative narrowing involving the MCP joints and IP joints. Osteopenia. No evidence of bony destruction to indicate acute osteomyelitis. There is diffuse superficial and joel p soft tissue edema extending into the carpal tunnel compatible with cellulitis. This is more promine nt involving the thenar eminence as previously described with intramuscular and soft tissue infection in this area although no evidence of drainable abscess or fluid collection. Findings overall are sim ilar in appearance compared to the prior examination. Induration and soft tissue thickening along the extensor retinaculum and extensor and flexor compartment tendons. CT/CT hand LT w con [id number] IMPRESSION: 1. No evidence of osteomyelitis. 2. Diffuse soft tissue infection involving the superficial and deep soft tissu es extending into the carpal tunnel and thenar eminence. Findings are similar i n appearance compared to previous. 3. No evidence of drainable abscess or fluid collection.
[2024-04-11] MEDS: iohexol 350 mg/mL 500 mL Btl (per mL) IV (12:27)
== END 2024-04-11 11:35 | disposition home or self-care (01) ==
LOC: RAD 11:34
PROVIDERS: PCP Family Medicine; Visit Provider Student in an Organized Health Care Education/Training Program
DX: L03.114 Cellulitis of left upper limb (principal); M19.042 Primary osteoarthritis, left hand
CPT/HCPCS: 73201

== ENCOUNTER → 2024-04-11 13:43 | Day surgery (SDC) | payer OTHER, SELFPAY ==
--- NOTE | 2024-04-11 12:36 | XR_ITS ---
WS: [id number] Exam: XR chest 1V portable [id number] Date/Time of Exam: 04/11/2024 1:11 PM Reason For Exam: Post PICC insertion No priors. A right-sided PICC line has been placed and appears to end in the lower one third of the SVC in good position. The lungs are fully expanded. Interstitial infiltrates in the bilateral upper lung zones ma y represent pneumonia or chronic change. Heart size is within normal limits. The mediastinum is paulo l in contour. Signs of coronary artery stenting. No pleural effusion. Bony structures are unremarkabl e. XR/XR chest 1V portable [id number] IMPRESSION: 1. Interstitial infiltrates in the bilateral upper lobes that may represent pne umonia or chronic change. 2. Right-sided PICC line ending in the expected region of the lower one third o f the SVC.
[2024-04-11] MEDS: piperacillin-tazobactam 4.5 GM in sodium chloride 0.9% (plus) 50 ML IV (13:39)
--- NOTE | 2024-04-11 14:02 | PICC.NOTE ---
Single lumen PICC placed to right basilic vein. Referred to vascular access nurse for PICC placement due to need for IV antibiotics x 6 weeks. Risks and benefits discussed and informed consent obtained from pt. Right arm assessed with right basilic vein measuring 4.5 mm, straight, and apparent best choice for placement. Using sterile technique and MST, right basilic vein accessed x 1 stick. Mid-arm circumference measured 10 cm from right AC 26 cm. Trimmed cath 45 cm with 0 cm external length noted. CXR shows tip in distal SVC, in good position for use per radiologist. Line secured with stat-lock. Insertion site covered with Biopatch and TSM. Report faxed to [facility] nurse notified of PICC insertion and planned dressing change on 04/18/24 at 10:00. Pt taught how to flush PICC line before and after infusion. Written teaching provided along with phone numbers for [facility], Dr. Broderick's office, and [facility].
== END ==
LOC: GILAB 13:44
PROVIDERS: PCP Family Medicine; Visit Provider Student in an Organized Health Care Education/Training Program
DX: Z45.2 Encounter for adjustment and management of vascular access device (principal)
CPT/HCPCS: 36573; 71045; 96365; J2543

== ENCOUNTER 2024-04-18 09:05 | Oncology outpatient (recurring) (ONCR) | payer OTHER, SELFPAY ==
[2024-04-18 09:54] LABS: Basophils % 0.5 %; Eosinophils # 0.1 10^3/uL (0.0-0.8); Eosinophils % 1.8 %; Hematocrit 32.8 % (37-53); Lymphocytes # 3.2 10^3/uL (0.8-4.8); Lymphocytes % 44.1 %; Mean Corpuscular HGB Conc 32.9 g/dL (30-55); Mean Corpuscular Hemoglobin 31.9 pg (27-33); Mean Corpuscular Volume 96.8 fl (82-101); Mean Platelet Volume 9.5 fL (7.4-10.4); Monocytes # 0.7 10^3/uL (0.2-0.9); Monocytes % 9.7 %; Neutrophils # 3.19 10^3/uL (1.8-7.7); Neutrophils % 43.6 %; Nucleated Red Blood Cells % 0 %; Platelet Count 139 10^3/cmm (157-399); Red Blood Count 3.39 10^6/uL (3.85-5.65); Red Cell Distribution Width 14.7 % (12.1-15.1); White Blood Count 7.32 10^3/uL (3.29-11.43)
[2024-04-18 10:14] LABS: Alanine Aminotransferase 18 U/L (0-41); Albumin Level 3.6 g/dL (3.5-5.2); Alkaline Phosphatase 67 U/L (40-130); Aspartate Amino Transferase 21 U/L (0-40); Globulin 2.6 g/dL (1.3-4.6); Total Bilirubin 0.4 mg/dL (0.15-1.2); Total Protein 6.2 g/dL (6.6-8.7)
== END 2024-04-19 23:59 | disposition home or self-care (01) ==
PROVIDERS: Student in an Organized Health Care Education/Training Program; PCP Family Medicine; Visit Provider Family Medicine
DX: L03.119 Cellulitis of unspecified part of limb (principal)
CPT/HCPCS: 80076; 82565; 85025

== ENCOUNTER 2024-05-03 12:45 | Oncology outpatient (recurring) (ONCR) | payer OTHER, SELFPAY ==
[2024-04-24 13:11] LABS: Basophils % 0.4 %; Eosinophils # 0.1 10^3/uL (0.0-0.8); Eosinophils % 1.3 %; Hematocrit 32.4 % (37-53); Lymphocytes # 5.4 10^3/uL (0.8-4.8); Lymphocytes % 51.5 %; Mean Corpuscular Hemoglobin 31.3 pg (27-33); Mean Corpuscular Volume 94.7 fl (82-101); Mean Platelet Volume 10.1 fL (7.4-10.4); Monocytes % 9.9 %; Neutrophils # 3.83 10^3/uL (1.8-7.7); Neutrophils % 36.3 %; Nucleated Red Blood Cells % 0 %; Platelet Count 147 10^3/cmm (157-399); Red Blood Count 3.42 10^6/uL (3.85-5.65); Red Cell Distribution Width 14.7 % (12.1-15.1); White Blood Count 10.53 10^3/uL (3.29-11.43)
[2024-04-24 13:33] LABS: Slide Review Slide Review Perform
[2024-04-24 13:45] LABS: Alanine Aminotransferase 16 U/L (0-41); Albumin Level 2.8 g/dL (3.5-5.2); Alkaline Phosphatase 50 U/L (40-130); Aspartate Amino Transferase 17 U/L (0-40); Globulin 1.7 g/dL (1.3-4.6); Total Bilirubin 0.2 mg/dL (0.15-1.2); Total Protein 4.5 g/dL (6.6-8.7)
[2024-05-03 13:15] LABS: Basophils # 0.1 10^3/uL (0.0-0.1); Basophils % 0.5 %; Eosinophils # 0.2 10^3/uL (0.0-0.8); Eosinophils % 2.4 %; Hematocrit 30.9 % (37-53); Lymphocytes # 4.6 10^3/uL (0.8-4.8); Lymphocytes % 46.1 %; Mean Corpuscular Hemoglobin 30.2 pg (27-33); Mean Corpuscular Volume 91.4 fl (82-101); Mean Platelet Volume 9.7 fL (7.4-10.4); Monocytes # 0.8 10^3/uL (0.2-0.9); Monocytes % 8.3 %; Neutrophils # 4.27 10^3/uL (1.8-7.7); Neutrophils % 42.4 %; Nucleated Red Blood Cells % 0 %; Platelet Count 255 10^3/cmm (157-399); Red Blood Count 3.38 10^6/uL (3.85-5.65); Red Cell Distribution Width 14.6 % (12.1-15.1); White Blood Count 10.05 10^3/uL (3.29-11.43)
[2024-05-03 13:33] LABS: Alanine Aminotransferase 20 U/L (0-41); Albumin Level 3.9 g/dL (3.5-5.2); Alkaline Phosphatase 102 U/L (40-130); Aspartate Amino Transferase 23 U/L (0-40); Globulin 2.7 g/dL (1.3-4.6); Total Bilirubin 0.5 mg/dL (0.15-1.2); Total Protein 6.6 g/dL (6.6-8.7)
[2024-05-03 13:44] LABS: Slide Review Slide Review Perform
== END 2024-05-19 23:59 | disposition home or self-care (01) ==
PROVIDERS: Student in an Organized Health Care Education/Training Program; PCP Family Medicine; Visit Provider Family Medicine
DX: Z53.9 Procedure and treatment not carried out, unspecified reason (principal); B99.9 Unspecified infectious disease; L03.119 Cellulitis of unspecified part of limb; L02.519 Cutaneous abscess of unspecified hand; L02.512 Cutaneous abscess of left hand; L03.124 Acute lymphangitis of left upper limb
CPT/HCPCS: 36592; 80076; 82565; 85025; 99213; 99215

== ENCOUNTER 2024-05-16 04:30 | Inpatient (IN) | payer OTHER, MEDICARE, SELFPAY ==
[2024-05-16] VITALS (73 sets, daily range): BP systolic 110–183; BP diastolic 55–133; PULSE 60–119; RESP 10–32; TEMP 36.3–37.1; O2SAT 83–100; BMI 22.4; BMI 22.8
--- NOTE | 2024-05-16 04:32 | XRR_ITS ---
PROCEDURE INFORMATION: Exam: XR Chest Exam date and time: 05/16/2024 4:52 AM Age: 79 years old Clinical indication: Shortness of breath TECHNIQUE: Imaging protocol: Radiologic exam of the chest. Views: 1 view. COMPARISON: CR XR chest 1V portable [id number] 04/11/2024 1:08 PM FINDINGS: Lungs: Superimposed upon chronic interstitial fibrosis is a diffuse interstitial infiltrate greatest at the lung bases. There is also cephalization of blood flow and a minimal left effusion is likely. Congestive heart failure is probably present. Pleural spaces: Unremarkable. No pleural effusion. No pneumothorax. Heart/Mediastinum: See Vasculature finding. Vasculature: Mild cardiomegaly and uncoiling of the thoracic aorta each accentuated by the AP positioning. Bones/joints: Unremarkable. XR/XR chest 1V portable [id number] IMPRESSION: Likely CHF.
--- NOTE | 2024-05-16 04:36 | ECG_ITS ---
[facility] Date: 2024-05-16 Pat Name: Carlos Alberto Suárez Department: Room: Gender: Male Environmental Health Aide: : 1945 Requested By: Deidre Fontaine Order Number: [id number] Angelina MD: Sapphire Vidal M.D. Measurements Intervals [place] Rate: 83 P: 77 SC: 138 QRS: 103 QRSD: 100 T: -34 QT: 402 QTc: 474 Interpretive Statements sinus rhythm with supraventricular ectopics. Blocked PACs. RIGHT AXIS DEVIATION [QRS AXIS > 100] NONSPECIFIC ST & T-WAVE ABNORMALITY CRITICAL TEST RESULT No previous ECG available for comparison Electronically Signed On 05-16-2024 19:06:41 PHARMACEUTICAL ENGINEER by Sapphire Vidal M.D. [email or web address]
[2024-05-16 04:40] LABS: ABG PCO2 36.7 mmHg (35-45); ABG PH Result 7.48 (7.35-7.45); Alveolar-Arterial Oxygen Gradi 7.5 mmHg (5-10); Arterial Blood Gas Hematocrit 32.3 % (42-52); Base Excess ABG 3.7 mmol/L (-2.0-2.0); Blood Gas Allen Test Pos; Blood Gas Sample Type Arterial; Carboxyhemoglobin 2.7 %THgb (0.4-20.1); HCO3 ABG 27.3 mmol/L (22-26); HGB O2 Sat 79.2 % (95-100); Ionized Calcium Level - ABG 1.1 mmol/L (1.1-1.4); Methemoglobin 1.1 % (0.4-1.5); Oxygen Saturation ABG 82.3; PO2 ABG 46.3 mmHg (80.0-100.0); Potassium Level - ABG 2.8 mmol/L (3.5-5.0); Total Hemoglobin 10.6 g/dL (14-18)
[2024-05-16 04:42] LABS: Blood Gas Operator Identificat 600455; Blood Gas Sample Site Radial, right; Oxygen Device ROOM AIR; PO2 FiO2 Ratio Arterial Blood 220
--- NOTE | 2024-05-16 04:46 | W.ED.SOB ---
HPI - SOB/Dyspnea General: Chief Complaint: Shortness of Breath/Dyspnea Stated Complaint: RESP. DISTRESS Time Seen by Provider: 05/16/24 04:30 History of Present Illness: HPI Narrative: 79-year-old man with a history of hypertension, hyperlipidemia, coronary artery disease on Plavix, and diabetes who presents to the emergency room with shortness of breath. He says he is had several stents in the past. He thinks he may have had heart failure in the past. However do not see any diuretics on his medicine list. He says he became fairly acutely short of breath overnight. He was hypertensive by EMS and hypertensive here on arrival. He is hypoxemic. On room air initially his O2 sat was 83%. EMS had him on a CPAP and gave him a couple breathing treatments. He says he does not take any breathing treatments at home and does not know of any history of COPD. No chest pain. No fevers. No altered mental status. No focal motor deficits. No abdominal pain. No nausea or vomiting. Related Data Home Medications Medication Instructions Recorded Confirmed ascorbic acid (vitamin C) 100 mg 100 mg PO DAILY 03/28/24 04/24/24 tablet atenolol 50 mg tablet 50 mg PO DAILY 03/28/24 04/24/24 atorvastatin 80 mg tablet 40 mg PO DAILY 03/28/24 04/24/24 brimonidine 0.15 % eye drops 1 drp ophthalmic (eye) TID 03/28/24 04/24/24 brimonidine 0.2 % eye drops 1 drp ophthalmic (eye) TID 03/28/24 04/24/24 clopidogrel 75 mg tablet 75 mg PO DAILY 03/28/24 04/24/24 gabapentin 300 mg capsule 300 mg PO TID 03/28/24 04/24/24 insulin aspart U-100 100 unit/mL 10 unit SUBCUT TID 03/28/24 04/24/24 (3 mL) subcutaneous pen (Novolog FlexPen U-100 Insulin aspart) insulin glulisine U-100 100 See Rx Instructions .Route .COMPLEX 03/28/24 04/24/24 unit/mL subcutaneous pen latanoprost 0.005 % eye drops 1 drp ophthalmic (eye) BEDTIME 03/28/24 04/24/24 lisinopril 20 mg tablet 20 mg PO DAILY 03/28/24 04/24/24 meloxicam 7.5 mg tablet 7.5 mg PO DAILY 03/28/24 04/24/24 metformin 850 mg tablet 850 mg PO BID 03/28/24 04/24/24 omega 1-rfo-uns-fish oil 1,600 5 ml PO DAILY 03/28/24 04/24/24 mg-500 mg-800 mg/5 mL oral liquid (Fish Oil) omeprazole 20 mg capsule,delayed 20 mg PO DAILY 03/28/24 04/24/24 release timolol maleate 0.5 % eye drops 1 drp ophthalmic (eye) BID 03/28/24 04/24/24 Allergies Allergy/AdvReac Type Severity Reaction Status Date / Time Penicillins AdvReac ADR-Halluci Verified 05/16/24 04:42 nating Review of Systems Narrative: Constitutional symptoms: Negative except as documented in HPI. Skin symptoms: Negative except as documented in HPI. Eye symptoms: Negative except as documented in HPI. ENMT symptoms: Negative except as documented in HPI. Respiratory symptoms: Negative except as documented in HPI. Cardiovascular symptoms: Negative except as documented in HPI. Gastrointestinal symptoms: Negative except as documented in HPI. Genitourinary symptoms: Negative except as documented in HPI. Musculoskeletal symptoms: Negative except as documented in HPI. Neurologic symptoms: Negative except as documented in HPI. Psychiatric symptoms: Negative except as documented in HPI. Endocrine symptoms: Negative except as documented in HPI. [facility] ED PFSH: Medical History Hypertension Diabetes Social History Smoking and tobacco/nicotine status: current every day tobacco/nicotine user (1 pack a day ) Physical Exam Narrative: EXAM NARRATIVE: General: Alert, no acute distress. Skin: Warm, dry. Head: Normocephalic, atraumatic. Neck: Supple, trachea midline. Eye: Extraocular movements are intact. Ears, nose, mouth and throat: mucosa moist. Cardiovascular: Regular, Normal peripheral perfusion. Respiratory: Coarse breath sounds, mild tachypnea mild increased work of breathing, but no considerable wheezing. Gastrointestinal: Soft, Nontender, Non distended Musculoskeletal: Normal ROM, no deformity. Neurological: Alert and oriented, No focal neurological deficit observed. Psychiatric: Cooperative, appropriate mood & affect. Course Vital Signs: Vital signs: Vital Signs Temperature 97.8 F 05/16/24 04:32 Pulse Rate 77 05/16/24 05:01 Respiratory Rate 27 H 05/16/24 05:16 Blood Pressure 172/94 05/16/24 05:16 Pulse Oximetry 95 05/16/24 05:16 Oxygen Delivery Me thod Room Air 05/16/24 04:32 MDM - SOB/Dyspnea Medical Decision Making Differential diagnosis for patient with shortness of breath includes but is not limited to and based on the above HPI, review of systems and physical exam: Pneumonia. Bronchitis. Asthma or COPD with acute exacerbation. Acute coronary syndrome / [place]. Pulmonary embolism. Anxiety. Congestive heart failure. Viral infections including influenza and Covid-19. Atrial fibrillation. Anxiety. Pleural effusion. Pneumothorax. Orders placed to evaluate differential diagnosis based on the above differential, HPI and physical exam EKG: Time 436. Rate 83. Normal sinus rhythm, No ST-T changes, PVCs, normal GA & QRS intervals, This was reviewed and interpreted by myself the ER physician at 4:50 AM. AB.48/36.7/46 with an O2 sat of 82% on room air. Chest x-ray: Fluid in the right fissure. Edema. Consistent with congestive heart failure. Films were interpreted by myself the emergency room provider and pending final radiology review. Lab Review: Laboratory results were reviewed and interpreted by myself the emergency room physician. Mild leukocytosis. Hemoglobin is 10.7. No renal failure. Potassium is mildly low at 3. proBNP is elevated over 3000. I reviewed the patient's medical record. Reexamination: Patient has good oxygen saturations on a BiPAP. He is tolerating this fairly well. He was requiring 10 to 12 L on a nonrebreather. Consultation: I spoke with Dr. Broderick who is accepted the patient to the ICU. Assessment and plan: Hypoxemic respiratory failure Flash pulmonary edema Accelerated hypertension -BiPAP and 40 mg IV Lasix. ? I discussed the patient with the hospitalist on-call who is admitting the patient. - Discussed findings and plan with patient. Answered any questions. - All laboratory values were reviewed and interpreted personally by myself, the ER physician - All imaging was reviewed and interpreted personally by myself, the ER physician. - Evaluation and treatment of this problem were appropriate in the emergency setting Critical care -I spent a total of >35 minutes of critical care time managing the patient, independent of any other practitioner. -The time involved in the performance of separately reportable procedures was not counted towards critical care time. Lab Data 05/16/24 04:45 05/16/24 04:45 Labs/Radiology: Laboratory Results WBC 11.38 10^3/uL (3.29-11.43) 05/16/24 04:45 RBC 3.57 10^6/uL (3.85-5.65) L 05/16/24 04:45 Hgb 10.70 g/dL (11.27-16.99) L 05/16/24 04:45 Hct 33.0 % (37-53) L 05/16/24 04:45 MCV 92.4 fl (82-101) 05/16/24 04:45 MCH 30.0 pg (27-33) 05/16/24 04:45 MCHC 32.4 g/dL (30-55) 05/16/24 04:45 RDW 16.3 % (12.1-15.1) H 05/16/24 04:45 Plt Count 255 10^3/cmm (157-399) 05/16/24 04:45 MPV 9.4 fL (7.4-10.4) 05/16/24 04:45 Neut % (Auto) 70.0 % 05/16/24 04:45 Lymph % (Auto) 21.1 % 05/16/24 04:45 [place] % (Auto) 6.9 % 05/16/24 04:45 Eos % (Auto) 1.0 % 05/16/24 04:45 Baso % (Auto) 0.4 % 05/16/24 04:45 Neut # (Auto) 7.97 10^3/uL (1.8-7.7) H 05/16/24 04:45 Lymph # (Auto) 2.4 10^3/uL (0.8-4.8) 05/16/24 04:45 [place] # (Auto) 0.8 10^3/uL (0.2-0.9) 05/16/24 04:45 Eos # (Auto) 0.1 10^3/uL (0.0-0.8) 05/16/24 04:45 Baso # (Auto) 0.1 10^3/uL (0.0-0.1) 05/16/24 04:45 Nucleated RBC % (auto) 0 % 05/16/24 04:45 Nucleated RBCs # 0.0 /100WBC 05/16/24 04:45 Specimen Type Arterial 05/16/24 04:36 Sample Site Radial, right 05/16/24 04:36 ABG pH 7.48 (7.35-7.45) H 05/16/24 04:36 ABG pCO2 36.7 mmHg (35-45) 05/16/24 04:36 ABG pO2 46.3 mmHg (80.0-100.0) L 05/16/24 04:36 ABG PO2/FiO2 Ratio 220 05/16/24 04:36 ABG HCO3 27.3 mmol/L (22-26) H 05/16/24 04:36 ABG O2 Saturation 82.3 05/16/24 04:36 ABG Base Excess 3.7 mmol/L (-2.0-2.0) H 05/16/24 04:36 Joe Test Pos 05/16/24 04:36 A-a O2 Gradient 7.5 mmHg (5-10) 05/16/24 04:36 Hematocrit 32.3 % (42-52) L 05/16/24 04:36 Hgb O2 Saturation 79.2 % (95-100) L 05/16/24 04:36 Carboxyhemoglobin 2.7 %THgb (0.4-20.1) 05/16/24 04:36 Methemoglobin 1.1 % (0.4-1.5) 05/16/24 04:36 Total Hemoglobin 10.6 g/dL (14-18) L 05/16/24 04:36 Sodium 145.0 mmol/L (131-143) H 05/16/24 04:36 Potassium 2.8 mmol/L (3.5-5.0) L 05/16/24 04:36 Glucose 217.0 mg/dL (70-115) H 05/16/24 04:36 Ionized Calcium 1.1 mmol/L (1.1-1.4) 05/16/24 04:36 O2 Delivery Device Room air 05/16/24 04:36 FiO2 21.0 % 05/16/24 04:36 Skin Care Therapist ID [id number] 05/16/24 04:36 Sodium 144 mmol/L (136-145) 05/16/24 04:45 Potassium 3.0 mmol/L (3.5-5.1) L 05/16/24 04:45 Chloride 103 mmol/L (98-107) 05/16/24 04:45 Carbon Dioxide 26 mmol/L (22-29) 05/16/24 04:45 Anion Gap 18.0 (5-19) 05/16/24 04:45 BUN 17 mg/dL (8-23) 05/16/24 04:45 Creatinine 0.8 mg/dL (0.7-1.2) 05/16/24 04:45 GFR Calculation Not Reportable 05/16/24 04:45 Glucose 208 mg/dL (65-115) H 05/16/24 04:45 Calculated Osmolality 306 mOsm/kg (285-295) H 05/16/24 04:45 Lactic Acid 2.9 mmol/L (0.5-2.2) H 05/16/24 04:45 Calcium 8.3 mg/dL (8.5-10.5) L 05/16/24 04:45 Total Bilirubin 0.8 mg/dL (0.15-1.2) 05/16/24 04:45 AST 14 U/L (0-40) 05/16/24 04:45 ALT 10 U/L (0-41) 05/16/24 04:45 Alkaline Phosphatase 99 U/L (40-130) 05/16/24 04:45 Troponin T Baseline 24 ng/L (0-15) H 05/16/24 04:45 C-Reactive Protein 20.5 mg/L (0.0-4.9) H 05/16/24 04:45 NT-Pro-B Natriuret Pep 3562 pg/mL (0-450) H 05/16/24 04:45 Total Protein 6.6 g/dL (6.6-8.7) 05/16/24 04:45 Albumin 3.9 g/dL (3.5-5.2) 05/16/24 04:45 Globulin 2.7 g/dL (1.3-4.6) 05/16/24 04:45 XR interpretation done by ED provider, pending radiology final review Discharge Plan Discharge Patient Disposition: Admitted As Inpatient Clinical Impression: Acute hypoxemic respiratory failure, Flash pulmonary edema, Accelerated hypertension Condition: Stable Coding Level of Care Code ED [employer] Machine Operator for Elias Ramírez
[2024-05-16 04:52] LABS: Basophils # 0.1 10^3/uL (0.0-0.1); Basophils % 0.4 %; Eosinophils # 0.1 10^3/uL (0.0-0.8); Lymphocytes # 2.4 10^3/uL (0.8-4.8); Lymphocytes % 21.1 %; Mean Corpuscular HGB Conc 32.4 g/dL (30-55); Mean Corpuscular Volume 92.4 fl (82-101); Mean Platelet Volume 9.4 fL (7.4-10.4); Monocytes # 0.8 10^3/uL (0.2-0.9); Monocytes % 6.9 %; Neutrophils # 7.97 10^3/uL (1.8-7.7); Nucleated Red Blood Cells % 0 %; Platelet Count 255 10^3/cmm (157-399); Red Blood Count 3.57 10^6/uL (3.85-5.65); Red Cell Distribution Width 16.3 % (12.1-15.1); White Blood Count 11.38 10^3/uL (3.29-11.43)
[2024-05-16 05:14] LABS: Troponin(5th) Baseline 24 ng/L (0-15)
[2024-05-16 05:15] LABS: Lactic Sepsis W/Reflex 2.9 mmol/L (0.5-2.2)
[2024-05-16 05:24] LABS: Alanine Aminotransferase 10 U/L (0-41); Albumin Level 3.9 g/dL (3.5-5.2); Alkaline Phosphatase 99 U/L (40-130); Aspartate Amino Transferase 14 U/L (0-40); Blood Urea Nitrogen 17 mg/dL (8-23); C Reactive Protein 20.5 mg/L (0.0-4.9); Calcium 8.3 mg/dL (8.5-10.5); Carbon Dioxide 26 mmol/L (22-29); Chloride 103 mmol/L (98-107); Creatinine Clr Calc Pharmacy 79.6846; Globulin 2.7 g/dL (1.3-4.6); Glucose 208 mg/dL (65-115); NT Pro B Type Natriuretic Pept 3562 pg/mL (0-450); Osmolality Calculated 306 mOsm/kg (285-295); Sodium 144 mmol/L (136-145); Total Bilirubin 0.8 mg/dL (0.15-1.2); Total Protein 6.6 g/dL (6.6-8.7)
[2024-05-16 05:32] LABS: Covid PCR NEGATIVE (Negative); Influenza A NEGATIVE (Negative); Influenza B NEGATIVE (Negative); Respiratory Syncytial Virus Ce NEGATIVE (Negative)
[2024-05-16] MEDS: FUROsemide 10 mg/mL SDV 4mL 40 MG IVP ×3 (05:38→17:39)
--- NOTE | 2024-05-16 06:30 | ECG_ITS ---
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 Measurements Intervals [place] Rate: 76 P: 48 AR: 127 QRS: 39 QRSD: 97 T: 57 QT: 415 QTc: 468 Interpretive Statements SINUS RHYTHM WITH OCCASIONAL VENTRICULAR PREMATURE COMPLEXES POSSIBLE LEFT ATRIAL ENLARGEMENT [-0.1mV P-WAVE IN V1/V2] ST DEVIATION AND MODERATE T-WAVE ABNORMALITY, CONSIDER LATERAL ISCHEMIA [-0.1+ mV T-WAVE IN I/aVL/V5/V6] Compared to ECG 05/16/2024 04:36:45 Ventricular premature complex(es) now present Possible ischemia now present Right-axis deviation no longer present T-wave abnormality still present Electronically Signed On 05-16-2024 19:38:16 RN SUPPORT SERVICES by Sapphire Vidal M.D. [id number]
[2024-05-16 06:37] LABS: Reflex Lactate Order REFLEX LACTIC ORDERD
--- NOTE | 2024-05-16 06:39 | CTR_ITS ---
PROCEDURE INFORMATION: Exam: CTA Chest With Contrast Exam date and time: 05/16/2024 1:49 PM Age: 79 years old Clinical indication: Other: Resp distress; Additional info: Assess for pe TECHNIQUE: Imaging protocol: Computed tomographic angiography of the chest with contrast. Exam focused on the arteries. 3D rendering (Not supervised by radiologist): MIP and/or 3D reconstructed images were created by the technologist. Radiation optimization: All CT scans at this facility use at least one of these dose optimization techniques: automated exposure control; mA and/or kV adjustment per patient size (includes targeted exams where dose is matched to clinical indication); or iterative reconstruction. Contrast material: OMNI 350; Contrast volume: 100 ml; Contrast route: INTRAVENOUS (IV); COMPARISON: CR (CHEST, ) 05/16/2024 4:52 AM RADIATION DOSE METRICS: Total DLP (mGy-cm): 421.44 FINDINGS: Pulmonary arteries: Normal. No pulmonary emboli. Aorta: Unremarkable. No aortic aneurysm. No aortic dissection. Lungs: Dependent atelectasis in the lower lobes. Pleural spaces: Moderate pleural effusions. Interstitial edema. Congestive heart failure is probably present. Heart: Unremarkable. No cardiomegaly. No pericardial effusion. Lymph nodes: Unremarkable. No enlarged lymph nodes. Bones/joints: Unremarkable. No acute fracture. Soft tissues: Unremarkable. CT/CT angio chest PE protcl [id number] IMPRESSION: 1. Pleural effusions, likely CHF. 2. No evidence of embolus.
--- NOTE | 2024-05-16 06:42 | CTR_ITS ---
PROCEDURE INFORMATION: Exam: CT Head Without Contrast Exam date and time: 05/16/2024 1:43 PM Age: 79 years old Clinical indication: Syncope and collapse TECHNIQUE: Imaging protocol: Computed tomography of the head without contrast. Radiation optimization: All CT scans at this facility use at least one of these dose optimization techniques: automated exposure control; mA and/or kV adjustment per patient size (includes targeted exams where dose is matched to clinical indication); or iterative reconstruction. COMPARISON: No relevant prior studies available. RADIATION DOSE METRICS: Total DLP (mGy-cm): 1111.68 FINDINGS: Brain: No intracranial hemorrhage. There is global parenchymal volume loss. Periventricular white matter hypoattenuation is nonspecific but most likely due to small vessel disease. No evidence of acute territorial infarct or cerebral edema. No mass effect or midline shift. Cerebral ventricles: Prominent ventricles likely secondary to volume loss. Paranasal sinuses: Visualized sinuses are unremarkable. No fluid levels. Mastoid air cells: Visualized mastoid air cells are well aerated. Bones: Unremarkable. No acute fracture. Soft tissues: Unremarkable. CT/CT head wo con* [id number] IMPRESSION: No acute intracranial findings.
--- NOTE | 2024-05-16 06:42 | USCV_ITS ---
Carlos Alberto Suárez Age: 79 Gender: M : 1945 Exam Date: 05/16/2024 07:45 Ordering Phys: Evy Broderick MD Technologist: [place] [facility] [place]: ? chf murmur BP: 144 / 89 HR: 85 Rhythm: Sinus Technical Quality: Adequate MEASUREMENTS (Male / Female) Normal Values 2D ECHO LV Diastolic Diameter PLAX 3.7 cm 4.2 - 5.9 / 3.9 - 5.3 cm IVS Diastolic Thickness 1.4 cm 0.6 - 1.0 / 0.6 - 0.9 cm IVS Systolic Thickness 1.7 cm LVPW Diastolic Thickness 1.4 cm 0.6 - 1.0 / 0.6 - 0.9 cm LVPW Systolic Thickness 1.8 cm LVOT Diameter 2.0 cm LV Ejection Fraction 2D Teich 69.8 % LV Ejection Fraction MOD 4C 64.6 % LV Ejection Fraction MOD 2C 58.7 % LV Ejection Fraction 2C AL 59.4 % LA Diameter 3.4 cm RA Systolic Volume 4C AL 38.5 ml RA Systolic Volume 4C MOD 37.0 ml Aorta at Sinotubular Diameter 3.0 cm M-MODE LA Ao Ratio MM 1.2 AV Cusp Separation MM 1.4 cm DOPPLER AV Peak Velocity 355.3 cm/s LVOT Peak Velocity 118.0 cm/s AV Area Cont Eq vti 1.0 cm squared AV Area Cont Eq pk 1.1 cm squared MV Peak Velocity 165.0 cm/s MV Area PHT 3.2 cm squared Mitral E to A Ratio 0.8 TV Peak Velocity 266.0 cm/s TR Peak Velocity 353.0 cm/s TR Peak Gradient 49.8 mmHg TV Peak E Velocity 75.0 cm/s PV Peak Velocity 114.0 cm/s FINDINGS Left Ventricle Normal left ventricular size and systolic function, EF 60%. . No regional wall motion abnormalities. Mild concentric left trickle hypertrophy Right Ventricle The right ventricle is normal in size and function. Right Atrium The right atrium is normal in size. Left Atrium The left atrium is normal in size. Mitral Valve Moderate mitral annular calcification. Trace to mild mitral valve regurgitation. Aortic Valve Moderately severe, low gradient aortic valve stenosis, mean gradient 25.7 mmHg, KORI 1 cm squared. Peak velocity of 3.55 m/s with a peak gradientof 50 mmHg Tricuspid Valve No gross abnormalities noted , Pulmonic Valve No gross abnormalities noted Pericardium Normal pericardium without effusion. Aorta Normal ascending aorta dimension. IVC The inferior vena cava appears normal. CONCLUSIONS Normal left ventricular size and systolic function, EF 60%. . No regional wall motion abnormalities. Mild concentric left trickle hypertrophy. Moderate mitral annular calcification. Trace to mild mitral valve regurgitation. Moderately severe, low gradient aortic valve stenosis, mean gradient 25.7 mmHg, KORI 1 cm squared. Peak velocity of 3.55 m/s with a peak gradientof 50 mmHg. There is no pericardial effusion. There are no intracardiac masses. Dr Sapphire Vidla MD FACC (Electronically Signed) Final Date: 16 May 2024 21:17 S
--- NOTE | 2024-05-16 06:46 | PM.HP ---
Providers/Chief Complaint Admitting Physician: Evy Broderick MD Primary Care Provider: Rosita Sam MD Chief Complaint: RESP. DISTRESS History of Present Illness Carlos Alberto Suárez is a 79 year old male with past medical history of diabetes mellitus, hypertension, history of CAD who presented to the hospital today with acute dyspnea. Patient states that he was asleep when he suddenly woke up at 2 AM feeling extremely short of breath. He tried to get up out of bed and had 3 episodes of falling. He is unable to describe to me if these were syncopal episodes but he does state that he felt extremely dizzy during this time. Patient is typically not on any oxygen. He has not had any longstanding shortness of breath. He denies any chest pain at the time of onset of symptoms. Denies any diaphoresis nausea or vomiting. Upon arrival at the emergency room he was noted to be hypoxic with oxygen saturation of 83%. He was placed on supplemental O2 however had increased work of breathing for which she was eventually placed on a BiPAP. At the time of this assessment patient is on a BiPAP with 40% FiO2, settings of 12/6 for IPAP/EPAP. He has a history of sleep apnea and typically uses a CPAP at home. Chest x-ray showed bilateral pulmonary edema appearing to be consistent with CHF. Respiratory viral panels negative. Patient denies any recent fever or chills. He has recently recovered from an extensive left hand infection which was treated with IV piperacillin/tazobactam after failure of oral antibiotics. Piperacillin/tazobactam was discontinued on May 03, 2024. He tolerated the medications well apart from some intermittent diarrhea which has since resolved. His hand looks much improved. There continues to be a small area through which there is likely a tendon protruding, however overall signs of infection have completely resolved. His follow up appt with Dr. Child is in May 2024. Review of Systems General: Reports: 10 or more systems reviewed and unremarkable except in HPI and below Const: Denies: fever(s), chills or body aches Eyes: Denies: change in vision, blurry vision or photophobia ENMT: Reports: hoarseness; Denies: throat pain, enlarged tonsils, odynophagia or nasal congestion Card: Denies: chest pain, palpitations, irregular heart rhythm, edema, swelling of feet/ankles, lightheadedness, pre-syncope, dyspnea on exertion or orthopnea Resp: Denies: dyspnea, productive cough, non-productive cough, wheezing, stridor, pain on inspiration, change in phlegm color, hemoptysis or chest congestion GI: Denies: abdominal pain, nausea, vomiting, hematemesis, coffee ground emesis, dysphagia, heartburn, diarrhea, constipation, GI cramping, change in stool character, hematochezia or melena : Denies: flank pain, dysuria, urinary frequency, urinary urgency, urinary hesitancy or hematuria Musc: Denies: neck pain, back pain, extremity pain, joint swelling, joint warmth or deformity Neuro: Denies: headache(s), numbness in extremities, weakness in extremities, sensory changes, difficulty walking, frequent falls, dizziness, vertigo, behavioral changes, Slurred speech present or seizure-like activity Psych: Denies: anxiety, depression, suicidal ideation or homicidal ideation Endo: Denies: polyuria, polydipsia, tired all the time, cold intolerance or hot flashes Ry/Lymph: Denies: easy bruising or easy bleeding Medications/Allergies Home Medications Medication Instructions Recorded Confirmed Last Taken Type ascorbic acid (vitamin C) 100 mg 100 mg PO DAILY 03/28/24 04/24/24 04/10/24 History tablet atenolol 50 mg tablet 50 mg PO DAILY 03/28/24 04/24/24 04/10/24 History atorvastatin 80 mg tablet 40 mg PO DAILY 03/28/24 04/24/24 04/10/24 History brimonidine 0.15 % eye drops 1 drp ophthalmic (eye) TID 03/28/24 04/24/24 04/10/24 History brimonidine 0.2 % eye drops 1 drp ophthalmic (eye) TID 03/28/24 04/24/24 04/10/24 History clopidogrel 75 mg tablet 75 mg PO DAILY 03/28/24 04/24/24 04/10/24 History gabapentin 300 mg capsule 300 mg PO TID 03/28/24 04/24/24 04/10/24 History insulin aspart U-100 100 unit/mL 10 unit SUBCUT TID 03/28/24 04/24/24 04/10/24 History (3 mL) subcutaneous pen (Novolog FlexPen U-100 Insulin aspart) insulin glulisine U-100 100 See Rx Instructions .Route .COMPLEX 03/28/24 04/24/24 04/10/24 History unit/mL subcutaneous pen latanoprost 0.005 % eye drops 1 drp ophthalmic (eye) BEDTIME 03/28/24 04/24/24 04/10/24 History lisinopril 20 mg tablet 20 mg PO DAILY 03/28/24 04/24/24 04/10/24 History meloxicam 7.5 mg tablet 7.5 mg PO DAILY 03/28/24 04/24/24 04/10/24 History metformin 850 mg tablet 850 mg PO BID 03/28/24 04/24/24 04/10/24 History omega 8-rix-ewy-fish oil 1,600 5 ml PO DAILY 03/28/24 04/24/24 04/10/24 History mg-500 mg-800 mg/5 mL oral liquid (Fish Oil) omeprazole 20 mg capsule,delayed 20 mg PO DAILY 03/28/24 04/24/24 04/10/24 History release timolol maleate 0.5 % eye drops 1 drp ophthalmic (eye) BID 03/28/24 04/24/24 04/10/24 History Allergies Allergy/AdvReac Type Severity Reaction Status Date / Time Penicillins AdvReac ADR-Halluci Verified 05/16/24 07:10 [facility] PFS Acute PFSH: Medical History Hypertension Diabetes Social History Smoking and tobacco/nicotine status: current every day tobacco/nicotine user (1 pack a day ) Vitals/I&O/Wt Last Vital Signs Temp 97.8 F 05/16/24 04:32 Pulse 82 05/16/24 06:33 Resp 26 H 05/16/24 06:05 BP 183/95 05/16/24 06:15 Pulse Ox 98 05/16/24 06:33 O2 Del Method Room Air 05/16/24 04:32 FiO2 40 05/16/24 06:33 Weight last 48 hrs Weight 76.5 kg Weight 74.843 kg Physical Exam Narrative: General: Currently on Bipap HEENT: PERRLA, pupils bilaterally equal and reactive, pallors not present Chest: B/L rales to auscultation CVS: S1-S2 regular, sytsolic murmur+ , no tachycardia, no gallops, no rubs Abdomen: Soft, nontender, no organomegaly, bowel sounds present Neuro: No focal deficits, no facial deformity, AO x3, power 5/5 in all limbs Extremities: no edema or clubbing Data 05/16/24 04:45 05/16/24 04:45 Micro: Microbiology 05/16/24 04:45 Blood Culture - Preliminary Blood SPECIMEN COLLECTED 05/16/24 04:47 Blood Culture - Preliminary Blood SPECIMEN COLLECTED ABG Interpretation 1: 05/16/24 04:36 ABG pH 7.48 H ABG pCO2 36.7 ABG pO2 46.3 L ABG HCO3 27.3 H ABG O2 Saturation 82.3 ABG Base Excess 3.7 H A&P Assessment and plan (1) Accelerated hypertension: (2) Acute hypoxemic respiratory failure: (3) Flash pulmonary edema: Plan 79-year-old male with comorbidities as listed above presenting to the hospital with acute dyspnea starting at around 2 AM which woke him up from sleep. Patient denies any chest pain. Noted to be hypoxic upon admission with SpO2 of 83%. He required supplemental O2 and then quickly needed to be placed on BiPAP ventilation due to increased work of breathing. Patient was having elevated blood pressure with systolic ranging between 1 70-1 80. At the time of this assessment his blood pressure is 191/111. Chest x-ray shows diffuse bilateral infiltrates which appear to be consistent with flash pulmonary edema. He has received Lasix 40 mg IV now, continue with Lasix 40 mg IV every 12 hours for diuresis. No acute ST-T wave changes on EKG. Baseline troponin at 24, awaiting 2 one 6-hour trend. No known history of CHF in the past. Echocardiogram last dates back to 2020 which had shown LVEF of 65 to 70%, grade 1 diastolic dysfunction. PASP of 28 mmHg. Respiratory viral panel is negative. Overall clinical impression is that of flash pulmonary edema likely precipitated by hypertensive urgency. Patient recently had hand infection with polymicrobial organisms after hitting his hand against a dog pen. Given that MSSA was one of the organisms isolated, patient has a systolic murmur on auscultation today of uncertain chronicity, would want to exclude endocarditis given these findings. His hand remains healed, no signs of active infection currently at the site. Plan: Admit to ICU Supplemental oxygen to keep O2 sats greater than 92% BiPAP ventilation until work of breathing improves. ABG showing findings of acute hypoxia. CT of the chest to assess for PE given acute above findings. Echocardiogram to assess for systolic and diastolic function, changes previously over 2020, valvular status. Blood cultures have been taken in the emergency room Reports history of 3 near syncopal episodes at home with onset of symptoms, check CT head. Patient states that he was previously told that his aorta is not pumping enough blood to the brain . I am uncertain if he has been diagnosed with aortic stenosis or other aneurysms in the past. CTA and echocardiogram to assess for the above today. Will additionally order carotid artery Doppler. No prior results available in the system. Lasix 40 mg IV every 12 hours Continue home dose of lisinopril 20 mg p.o. daily, atenolol 50 mg p.o. daily, add hydralazine 10 mg IV every 6 hour for SBP greater than 170. Further antihypertensives may need to be added based on blood pressure trend during inpatient stay. Closely monitor urine output and kidney function with diuresis. Continue troponin series at 2 and 6 hours Supplement hypokalemia with 40 mEq IV potassium. Last potassium at 3.0. Lactic acidosis likely related to hypoxia. DVT prophylaxis: Lovenox 40 Full code Attestations Medical Necessity Statement*: Greater than 2 midnight stay is anticipated for v diuresis, iv antihypertensives, pending CTA, acute hypoxia, new BIpap ventilation Critical Care Time: The high probability of a clinically significant, sudden or life threatening deterioration of the patient's [cardiac, respiratory] system(s) required my full and direct attention, intervention and personal management. The critical care time is as shown. This time is in addition to time spent performing any reported procedures but includes the following: [x] Data and vital sign review and interpretation [x] Patient assessment, examination and intervention [x] Documentation [x] Medication orders and management Coding Level of Care Code Critical Care >/= 30 minutes Diagnoses Accelerated hypertension I10 Acute hypoxemic respiratory failure J96.01 Flash pulmonary edema J81.0
[2024-05-16] MEDS: hyDRALAzine 20 mg/mL INJ 1 mL 10 MG IVP (06:56)
[2024-05-16 07:17] LABS: Troponin 5 2HR 29.52 ng/L (0-15); Troponin 5 2HR Delta 5.52 ABS# (0-10)
[2024-05-16 07:22] LABS: Lactic Acid level (Lactate) 2.4 mmol/L (0.5-2.2)
[2024-05-16 07:26] LABS: D Dimer 1.44 ug/mLFEU (0-0.59)
--- NOTE | 2024-05-16 07:44 | PC.PHAR ---
[facility] for med list at 7am they open at 8, will follow up when i can. Meds were last reconciled 04/24 at doctors appt
[2024-05-16 08:12] LABS: Glucose Point of Care 208 mg/dL (70-110)
[2024-05-16] MEDS: gabapentin 300 mg Capsule PO ×3 (08:19→20:15)
[2024-05-16] MEDS: lisinopril 20 mg Tablet PO (08:19)
[2024-05-16] MEDS: atenolol 50 mg Tablet PO (08:19)
[2024-05-16] MEDS: pantoprazole DR 40 mg Tablet PO (08:19)
[2024-05-16] MEDS: atorvastatin 40 mg Tablet PO (08:19)
[2024-05-16] MEDS: clopidogrel 75 mg Tablet PO (08:19)
[2024-05-16] MEDS: insulin lispro 100 unit/1 mL SUBCUT ×3 (08:20→20:29)
[2024-05-16] MEDS: enoxaparin 40 mg/0.4 mL Syringe SUBCUT (08:20)
[2024-05-16] MEDS: lidocaine 1% 5 ML in potassium chloride premix 100 ML 26.25 ML IV (08:22)
--- NOTE | 2024-05-16 09:41 | PC.NURSE ---
controlled medication count Gabapentin- 69 capsules count witness by Vinay Mata RN
--- NOTE | 2024-05-16 10:32 | ECG_ITS ---
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 Measurements Intervals [place] Rate: 77 P: 32 IL: 126 QRS: 61 QRSD: 93 T: 137 QT: 443 QTc: 502 Interpretive Statements SINUS RHYTHM WITH FREQUENT SUPRAVENTRICULAR PREMATURE COMPLEXES ST DEVIATION AND MODERATE T-WAVE ABNORMALITY, CONSIDER LATERAL ISCHEMIA [-0.1+ mV T-WAVE IN I/aVL/V5/V6] Compared to ECG 05/16/2024 06:30:01 Ventricular premature complex(es) no longer present T-wave abnormality still present Possible ischemia still present Electronically Signed On 05-16-2024 19:38:30 RV SERVICER by Sapphire Vidal M.D. [id number]
[2024-05-16] MEDS: ipratropium-albuterol 3 mL Neb INHALATION ×2 (11:17→16:34)
[2024-05-16 11:50] LABS: Troponin 5 6HR 42.21 ng/L (0-15)
[2024-05-16 11:53] LABS: Troponin 5 6HR Delta 18.21 ng/L (0-12)
[2024-05-16 12:05] LABS: Glucose Point of Care 240 mg/dL (70-110)
[2024-05-16] MEDS: iohexol 350 mg/mL 500 mL Btl (per mL) IV (13:49)
[2024-05-16 17:31] LABS: Glucose Point of Care 138 mg/dL (70-110)
--- NOTE | 2024-05-16 17:53 | P.PN_ITS ---
Subjective 2 Subjective: Seen him at bedside this morning. Feels better, shortness of breath improved as compared to admission. Was able to provide history. Was on BiPAP earlier this morning but since then has been comfortable on 2 L nasal cannula. Denies any complaint of chest pain or palpitations at this time Medications: Reviewed: Yes Vitals/I&O/Wt Last Vital Signs Temp 98.3 F 05/16/24 16:00 Pulse 78 05/16/24 17:45 Resp 22 H 05/16/24 17:45 BP 125/68 05/16/24 17:45 Pulse Ox 98 05/16/24 17:45 O2 Del Method Nasal Cannula 05/16/24 16:34 O2 Flow Rate 3 05/16/24 16:34 FiO2 40 05/16/24 08:00 05/16/24 05/16/24 05/16/24 06:59 14:59 22:59 Intake Total 405 / 405 300 / 705 Output Total 2300 / 2300 Balance 405 / 405 -2000 / -1595 Weight last 48 hrs Weight 76.5 kg Weight 74.843 kg Physical Exam 2 Narrative: General: Currently on Bipap HEENT: PERRLA, pupils bilaterally equal and reactive, pallors not present Chest: B/L rales to auscultation CVS: S1-S2 regular, sytsolic murmur+ , no tachycardia, no gallops, no rubs Abdomen: Soft, nontender, no organomegaly, bowel sounds present Neuro: No focal deficits, no facial deformity, AO x3, power 5/5 in all limbs Extremities: no edema or clubbing Urinary Catheter Management: San: Cath Placed During This Visit: yes Urinary Catheter Date of Insertion: 05/16/24 Urinary Catheter Time of Insertion: 10:00 Data 05/16/24 04:45 05/16/24 04:45 Micro: Microbiology 05/16/24 04:45 Blood Culture - Preliminary Blood SPECIMEN COLLECTED 05/16/24 04:47 Blood Culture - Preliminary Blood SPECIMEN COLLECTED A&P Assessment and plan (1) Accelerated hypertension: (2) Acute hypoxemic respiratory failure: (3) Flash pulmonary edema: Plan 79-year-old male with comorbidities as listed above presenting to the hospital with acute dyspnea starting at around 2 AM which woke him up from sleep. Noted to be hypoxic upon admission with SpO2 of 83%. He required supplemental O2 and then quickly needed to be placed on BiPAP ventilation due to increased work of breathing. Patient was having elevated blood pressure with systolic ranging between 1 70-1 80. At the time of this assessment his blood pressure is 191/111. Chest x-ray shows diffuse bilateral infiltrates which appear to be consistent with flash pulmonary edema. He has received Lasix 40 mg IV now, continue with Lasix 40 mg IV every 12 hours for diuresis. No acute ST-T wave changes on EKG. Baseline troponin at 24, awaiting 2 one 6- hour trend. No known history of CHF in the past. Echocardiogram last dates back to 2020 which had shown LVEF of 65 to 70%, grade 1 diastolic dysfunction. PASP of 28 mmHg. Respiratory viral panel is negative. Overall clinical impression is that of flash pulmonary edema likely precipitated by hypertensive urgency. Plan: Admit to ICU Supplemental oxygen to keep O2 sats greater than 92% BiPAP ventilation until work of breathing improves. ABG showing findings of acute hypoxia. CT of the chest to assess for PE given acute above findings. Echocardiogram to assess for systolic and diastolic function, changes previously over 2020, valvular status. Blood cultures have been taken in the emergency room Reports history of 3 near syncopal episodes at home with onset of symptoms, check CT head. Patient states that he was previously told that his aorta is not pumping enough blood to the brain . I am uncertain if he has been diagnosed with aortic stenosis or other aneurysms in the past. CTA and echocardiogram to assess for the above today. Will additionally order carotid artery Doppler. No prior results available in the system. Lasix 40 mg IV every 12 hours Continue home dose of lisinopril 20 mg p.o. daily, atenolol 50 mg p.o. daily, add hydralazine 10 mg IV every 6 hour for SBP greater than 170. Further antihypertensives may need to be added based on blood pressure trend during inpatient stay. Closely monitor urine output and kidney function with diuresis. Continue troponin series at 2 and 6 hours Supplement hypokalemia with 40 mEq IV potassium. Last potassium at 3.0. Lactic acidosis likely related to hypoxia. DVT prophylaxis: Lovenox 40 Full code 05/16/24 Patient being admitted with acute congestive heart failure likely secondary to hypertensive urgency Blood pressure trend noted has been controlled in 130s IV Lasix increased to 40 mg 3 times daily since there was urinary retention and less output Blood pressure improved with increasing dose of Lasix Continue to monitor I's and O's Shortness of breath improved and saturating 98% on 2 L nasal cannula. Will continue home dose of lisinopril and atenolol for now Follow-up labs in a.m. 6-hour troponins at 42, delta 18, likely secondary to demand ischemia Will follow-up echo and decide for cardiology consult if needed. Continue to monitor in ICU Attestations 2 Medical Necessity Statement*: Greater than 2 midnight stay is anticipated for v diuresis, and hypoxia, elevated troponins and 2D echo Time Spent in Patient Care: 25 minutes Critical Care Time: The high probability of a clinically significant, sudden or life threatening deterioration of the patient's [cardiac, respiratory] system(s) required my full and direct attention, intervention and personal management. The critical care time is as shown. This time is in addition to time spent performing any reported procedures but includes the following: [x] Data and vital sign review and interpretation [x] Patient assessment, examination and intervention [x] Documentation [x] Medication orders and management Coding Level of Care Code Acute Code for Chg Fwd Diagnoses Accelerated hypertension I10 Acute hypoxemic respiratory failure J96.01 Flash pulmonary edema J81.0 Time Spent (min) 25
[2024-05-16] MEDS: nicotine 21 mg Patch 1 PATCH TRANSDERMA (17:55)
[2024-05-16 20:25] LABS: Glucose Point of Care 301 mg/dL (70-110)
[2024-05-16] MEDS: latanoprost 0.005% Op Soln 2.5 mL Btl 1 DROP EYE-BOTH (20:28)
[2024-05-17] VITALS (32 sets, daily range): BP systolic 107–156; BP diastolic 56–105; PULSE 57–99; RESP 0–26; TEMP 36.8–37; O2SAT 89–98
[2024-05-17] MEDS: ipratropium-albuterol 3 mL Neb INHALATION ×3 (00:29→16:36)
[2024-05-17 04:50] LABS: Basophils % 0.4 %; Eosinophils # 0.1 10^3/uL (0.0-0.8); Eosinophils % 0.8 %; Hematocrit 32.3 % (37-53); Lymphocytes # 3.6 10^3/uL (0.8-4.8); Mean Corpuscular HGB Conc 31.3 g/dL (30-55); Mean Corpuscular Hemoglobin 29.6 pg (27-33); Mean Corpuscular Volume 94.7 fl (82-101); Mean Platelet Volume 9.9 fL (7.4-10.4); Monocytes # 1.2 10^3/uL (0.2-0.9); Monocytes % 10.4 %; Neutrophils # 6.07 10^3/uL (1.8-7.7); Nucleated Red Blood Cells % 0 %; Platelet Count 239 10^3/cmm (157-399); Red Blood Count 3.41 10^6/uL (3.85-5.65); Red Cell Distribution Width 16.5 % (12.1-15.1); White Blood Count 11.03 10^3/uL (3.29-11.43)
[2024-05-17 05:16] LABS: Alanine Aminotransferase 8 U/L (0-41); Albumin Level 3.8 g/dL (3.5-5.2); Alkaline Phosphatase 100 U/L (40-130); Anion Gap 18.7 (5-19); Aspartate Amino Transferase 13 U/L (0-40); Blood Urea Nitrogen 18 mg/dL (8-23); Calcium 8.2 mg/dL (8.5-10.5); Carbon Dioxide 29 mmol/L (22-29); Chloride 101 mmol/L (98-107); Globulin 2.4 g/dL (1.3-4.6); Glucose 126 mg/dL (65-115); Osmolality Calculated 305 mOsm/kg (285-295); Sodium 146 mmol/L (136-145); Total Bilirubin 0.8 mg/dL (0.15-1.2); Total Protein 6.2 g/dL (6.6-8.7); Troponin T (5th) Once 35 ng/L (0-15)
[2024-05-17 05:20] LABS: Potassium 2.7 mmol/L (3.5-5.1)
[2024-05-17] MEDS: potassium chloride ER 20 mEq Tablet 80 MEQ PO (05:45)
[2024-05-17] MEDS: enoxaparin 40 mg/0.4 mL Syringe SUBCUT (06:17)
[2024-05-17 07:56] LABS: Glucose Point of Care 266 mg/dL (70-110)
[2024-05-17] MEDS: pantoprazole DR 40 mg Tablet PO (08:46)
[2024-05-17] MEDS: atorvastatin 40 mg Tablet PO (08:46)
[2024-05-17] MEDS: lisinopril 20 mg Tablet PO (08:46)
[2024-05-17] MEDS: atenolol 50 mg Tablet PO (08:46)
[2024-05-17] MEDS: gabapentin 300 mg Capsule PO ×3 (08:46→20:47)
[2024-05-17] MEDS: clopidogrel 75 mg Tablet PO (08:47)
[2024-05-17] MEDS: nicotine 21 mg Patch 1 PATCH TRANSDERMA (08:47)
[2024-05-17] MEDS: insulin lispro 100 unit/1 mL SUBCUT ×4 (08:47→20:48)
--- NOTE | 2024-05-17 09:20 | XRR_ITS ---
PROCEDURE INFORMATION: Exam: XR Chest Exam date and time: 05/17/2024 9:24 AM Age: 79 years old Clinical indication: Other: Chf; Additional info: Follow up chf TECHNIQUE: Imaging protocol: Radiologic exam of the chest. Views: 1 view. COMPARISON: CT angio chest PE protcl [id number] 05/16/2024 1:49 PM FINDINGS: Lungs: The lungs are hyperinflated. There is mild basilar vascular congestion improved when compared to prior exam. There is a more focal opacity at the left lung base partially obscuring the left hemidiaphragm. This may reflect layering pleural fluid, atelectasis, pneumonia or a combination. Pleural spaces: Suspect small bilateral pleural effusions. Heart/Mediastinum: The heart is borderline enlarged. There is calcified plaque involving the aorta. Bones/joints: Unremarkable. XR/XR chest 1V portable [id number] IMPRESSION: 1. Borderline cardiomegaly with bibasilar vascular congestion improved. 2. More focal opacity left lung base unchanged. 3. Lung hyperinflation.
[2024-05-17 09:24] LABS: Potassium 3.2 mmol/L (3.5-5.1)
--- NOTE | 2024-05-17 10:14 | P.DS_ITS ---
Discharge Providers Date of Admission: 05/16/24 05:28 Date of Discharge: May 17, 2024 Attending Provider at Admission: Evy Broderick MD Attending Provider at Discharge: Sima Macedo MD Primary Care Provider: Rosita Sam MD Diagnoses at Discharge Discharge Diagnosis (1) Accelerated hypertension: Status: Acute (2) Acute hypoxemic respiratory failure: Status: Acute (3) Flash pulmonary edema: Status: Acute Reason for Visit Reason for Visit: RESP. DISTRESS Physical Exam Urinary Catheter Management: San: Cath Placed During This Visit: yes Reason for Continuing Indwelling Catheter: Accurate Measurement of Urinary Output in Critically Ill Patients Urinary Catheter Date of Insertion: 05/16/24 Urinary Catheter Time of Insertion: 10:00 Discharge Data Studies Completed and Pending Completed Studies During Hospitalization Category Date Time Status CT head wo con* [id number] Routine Cat Scan 05/16/24 06:42 Completed CTA chest [CT angio chest PE protcl [id number]] Routine Cat Scan 05/16/24 06:39 Completed XR chest 1V portable [id number] Stat Exams 05/16/24 04:32 Completed XR chest 1V portable [id number] Stat Exams 05/17/24 09:20 Completed CV. echo complete* [id number] Routine Ultrasound 05/16/24 06:42 Completed Pending at discharge Category Date Time Status Blood Culture Stat Lab 05/16/24 04:47 Results Radiology Impressions Chest CTA 05/16/24 06:39 IMPRESSION: 1. Pleural effusions, likely CHF. 2. No evidence of embolus. Head CT 05/16/24 06:42 IMPRESSION: No acute intracranial findings. Chest X-Ray 05/17/24 09:20 IMPRESSION: 1. Borderline cardiomegaly with bibasilar vascular congestion improved. 2. More focal opacity left lung base unchanged. 3. Lung hyperinflation. Laboratory Results WBC 11.03 10^3/uL (3.29-11.43) 05/17/24 04:11 RBC 3.41 10^6/uL (3.85-5.65) L 05/17/24 04:11 Hgb 10.10 g/dL (11.27-16.99) L 05/17/24 04:11 Hct 32.3 % (37-53) L 05/17/24 04:11 MCV 94.7 fl (82-101) 05/17/24 04:11 MCH 29.6 pg (27-33) 05/17/24 04:11 MCHC 31.3 g/dL (30-55) 05/17/24 04:11 RDW 16.5 % (12.1-15.1) H 05/17/24 04:11 Plt Count 239 10^3/cmm (157-399) 05/17/24 04:11 MPV 9.9 fL (7.4-10.4) 05/17/24 04:11 Neut % (Auto) 55.0 % 05/17/24 04:11 Lymph % (Auto) 33.0 % 05/17/24 04:11 [place] % (Auto) 10.4 % 05/17/24 04:11 Eos % (Auto) 0.8 % 05/17/24 04:11 Baso % (Auto) 0.4 % 05/17/24 04:11 Neut # (Auto) 6.07 10^3/uL (1.8-7.7) 05/17/24 04:11 Lymph # (Auto) 3.6 10^3/uL (0.8-4.8) 05/17/24 04:11 [place] # (Auto) 1.2 10^3/uL (0.2-0.9) H 05/17/24 04:11 Eos # (Auto) 0.1 10^3/uL (0.0-0.8) 05/17/24 04:11 Baso # (Auto) 0.0 10^3/uL (0.0-0.1) 05/17/24 04:11 Nucleated RBC % (auto) 0 % 05/17/24 04:11 Nucleated RBCs # 0.0 /100WBC 05/17/24 04:11 D-Dimer 1.44 ug/mLFEU (0-0.59) H 05/16/24 06:49 Specimen Type Arterial 05/16/24 04:36 Sample Site Radial, right 05/16/24 04:36 ABG pH 7.48 (7.35-7.45) H 05/16/24 04:36 ABG pCO2 36.7 mmHg (35-45) 05/16/24 04:36 ABG pO2 46.3 mmHg (80.0-100.0) L 05/16/24 04:36 ABG PO2/FiO2 Ratio 220 05/16/24 04:36 ABG HCO3 27.3 mmol/L (22-26) H 05/16/24 04:36 ABG O2 Saturation 82.3 05/16/24 04:36 ABG Base Excess 3.7 mmol/L (-2.0-2.0) H 05/16/24 04:36 Joe Test Pos 05/16/24 04:36 A-a O2 Gradient 7.5 mmHg (5-10) 05/16/24 04:36 Hematocrit 32.3 % (42-52) L 05/16/24 04:36 Hgb O2 Saturation 79.2 % (95-100) L 05/16/24 04:36 Carboxyhemoglobin 2.7 %THgb (0.4-20.1) 05/16/24 04:36 Methemoglobin 1.1 % (0.4-1.5) 05/16/24 04:36 Total Hemoglobin 10.6 g/dL (14-18) L 05/16/24 04:36 Sodium 145.0 mmol/L (131-143) H 05/16/24 04:36 Potassium 2.8 mmol/L (3.5-5.0) L 05/16/24 04:36 Glucose 217.0 mg/dL (70-115) H 05/16/24 04:36 Ionized Calcium 1.1 mmol/L (1.1-1.4) 05/16/24 04:36 O2 Delivery Device Room air 05/16/24 04:36 FiO2 21.0 % 05/16/24 04:36 Floor Helper ID [id number] 05/16/24 04:36 Sodium 146 mmol/L (136-145) H 05/17/24 04:11 Potassium 3.2 mmol/L (3.5-5.1) L 05/17/24 08:21 Chloride 101 mmol/L (98-107) 05/17/24 04:11 Carbon Dioxide 29 mmol/L (22-29) 05/17/24 04:11 Anion Gap 18.7 (5-19) 05/17/24 04:11 BUN 18 mg/dL (8-23) 05/17/24 04:11 Creatinine 1.0 mg/dL (0.7-1.2) 05/17/24 04:11 GFR Calculation Not Reportable 05/17/24 04:11 Glucose 126 mg/dL (65-115) H 05/17/24 04:11 POC Glucose 266 mg/dL (70-110) H 05/17/24 07:54 Calculated Osmolality 305 mOsm/kg (285-295) H 05/17/24 04:11 Lactic Acid 2.9 mmol/L (0.5-2.2) H 05/16/24 04:45 Lactic Acid (Sepsis) 2.4 mmol/L (0.5-2.2) H 05/16/24 06:49 Calcium 8.2 mg/dL (8.5-10.5) L 05/17/24 04:11 Total Bilirubin 0.8 mg/dL (0.15-1.2) 05/17/24 04:11 AST 13 U/L (0-40) 05/17/24 04:11 ALT 8 U/L (0-41) 05/17/24 04:11 Alkaline Phosphatase 100 U/L (40-130) 05/17/24 04:11 Troponin T 5th Gen ng/L 35 ng/L (0-15) H 05/17/24 04:11 Troponin T Baseline 24 ng/L (0-15) H 05/16/24 04:45 Troponin T 120 Minute 29.52 ng/L (0-15) H 05/16/24 06:49 Delta Troponin T 5.52 ABS# (0-10) 05/16/24 06:49 Troponin T Hi Sens 6Hr 42.21 ng/L (0-15) H 05/16/24 10:55 Troponin T Hi Sens 6Hr Delta 18.21 ng/L (0-12) H* 05/16/24 10:55 C-Reactive Protein 20.5 mg/L (0.0-4.9) H 05/16/24 04:45 NT-Pro-B Natriuret Pep 3562 pg/mL (0-450) H 05/16/24 04:45 Total Protein 6.2 g/dL (6.6-8.7) L 05/17/24 04:11 Albumin 3.8 g/dL (3.5-5.2) 05/17/24 04:11 Globulin 2.4 g/dL (1.3-4.6) 05/17/24 04:11 Coronavirus (PCR) Negative (Negative) 05/16/24 04:42 Influenza A (PCR) Negative (Negative) 05/16/24 04:42 Influenza Type B (PCR) Negative (Negative) 05/16/24 04:42 RSV (PCR) Negative (Negative) 05/16/24 04:42 Vitals Last Vital Signs Temp 98.6 F 05/17/24 04:00 Pulse 90 05/17/24 08:59 Resp 18 05/17/24 08:59 BP 133/63 05/17/24 04:00 Pulse Ox 94 05/17/24 08:59 O2 Del Method Room Air 05/17/24 08:59 O2 Flow Rate 2 05/17/24 04:00 FiO2 40 05/16/24 08:00 Discharge Plan Discharge Patient Disposition: Home Condition: Stable Prescriptions: No Action latanoprost 0.005 % drops 1 drp ophthalmic (eye) BEDTIME brimonidine 0.2 % drops 1 drp ophthalmic (eye) TID gabapentin 300 mg Capsule 300 mg PO TID Rx Instructions: take 1 capsule by mouth every morning and two every evening timolol maleate 0.5 % drops 1 drp ophthalmic (eye) BID atenolol 50 mg tablet 50 mg PO DAILY brimonidine 0.15 % drops 1 drp ophthalmic (eye) TID insulin aspart U-100 [Novolog FlexPen U-100 Insulin] 100 unit/mL (3 mL) Insulin Pen 10 unit SUBCUT TID insulin glulisine U-100 100 unit/mL Insulin Pen See Rx Instructions .ROUTE .COMPLEX Rx Instructions: inject 55 units ;sq; every evening before meal to lower cholesterol atorvastatin 80 mg Tablet 40 mg PO DAILY lisinopril 20 mg Tablet 20 mg PO DAILY metformin 850 mg Tablet 850 mg PO BID Rx Instructions: take 1 tablet by mouth twice daily with meals to lower blood sugar clopidogrel 75 mg Tablet 75 mg PO DAILY meloxicam 7.5 mg Tablet 7.5 mg PO DAILY ascorbic acid (vitamin C) 100 mg Tablet 100 mg PO DAILY omeprazole 20 mg Capsule,Delayed Release(Dr/Ec) 20 mg PO DAILY Fish Oil 1,600-500-800 mg/5 mL Liquid 5 ml PO DAILY allopurinol 100 mg Tablet 100 mg PO DAILY Referrals: Rosita Sam MD [Primary Care Provider] - (Please call Dr. Mcelroy's Office on Tuesday or Tuesday at [phone] to schedule a follow up appointment. Thank you.) Patient Instructions: Furosemide (By mouth) (Lasix), Potassium Chloride (By mouth) (K-Dur, K-Shell, K-Tab, Timothy Mur), Hypertension, Pulmonary Edema (DC), Acute Respiratory Failure (IP), Opioid Safety Coding Level of Care Code Acute Code for [facility] Fwd Diagnoses Accelerated hypertension I10 Acute hypoxemic respiratory failure J96.01 Flash pulmonary edema J81.0
--- NOTE | 2024-05-17 10:39 | P.PN_ITS ---
Subjective 2 Subjective: Seen him at bedside this morning. Feeling much better, less SOB. He is off oxygen and saturating 91-92%. Medications: Reviewed: Yes Vitals/I&O/Wt Last Vital Signs Temp 98.6 F 05/17/24 04:00 Pulse 90 05/17/24 08:59 Resp 18 05/17/24 08:59 BP 133/63 05/17/24 04:00 Pulse Ox 94 05/17/24 08:59 O2 Del Method Room Air 05/17/24 08:59 O2 Flow Rate 2 05/17/24 04:00 FiO2 40 05/16/24 08:00 05/16/24 05/17/24 05/17/24 22:59 06:59 14:59 Intake Total 300 / 705 250 / 955 Output Total 3300 / 3300 825 / 4125 Balance -3000 / -2595 -575 / -3170 Weight last 48 hrs Weight 72.847 kg Weight 76.5 kg Weight 74.843 kg Physical Exam 2 Narrative: General: He is alert awake oriented x 3, not in acute distress, on room air HEENT: PERRLA, pupils bilaterally equal and reactive, pallors not present Chest: B/L rales to auscultation improved CVS: S1-S2 regular, sytsolic murmur+ , no tachycardia, no gallops, no rubs Abdomen: Soft, nontender, no organomegaly, bowel sounds present Neuro: No focal deficits, no facial deformity, AO x3, power 5/5 in all limbs Extremities: no edema or clubbing Urinary Catheter Management: San: Cath Placed During This Visit: yes Reason for Continuing Indwelling Catheter: Accurate Measurement of Urinary Output in Critically Ill Patients Urinary Catheter Date of Insertion: 05/16/24 Urinary Catheter Time of Insertion: 10:00 Data 05/17/24 04:11 05/17/24 08:21 Micro: Microbiology 05/16/24 04:47 Blood Culture - Preliminary Blood NEGATIVE TO DATE 05/16/24 04:45 Blood Culture - Preliminary Blood NEGATIVE TO DATE A&P Assessment and plan (1) Accelerated hypertension: (2) Acute hypoxemic respiratory failure: (3) Flash pulmonary edema: (4) Acute diastolic (congestive) heart failure: Plan 79-year-old male with comorbidities as listed above presenting to the hospital with acute dyspnea starting at around 2 AM which woke him up from sleep. Noted to be hypoxic upon admission with SpO2 of 83%. He required supplemental O2 and then quickly needed to be placed on BiPAP ventilation due to increased work of breathing. Patient was having elevated blood pressure with systolic ranging between 1 70-1 80. At the time of this assessment his blood pressure is 191/111. Chest x-ray shows diffuse bilateral infiltrates which appear to be consistent with flash pulmonary edema. He has received Lasix 40 mg IV now, continue with Lasix 40 mg IV every 12 hours for diuresis. No acute ST-T wave changes on EKG. Baseline troponin at 24, awaiting 2 one 6- hour trend. No known history of CHF in the past. Echocardiogram last dates back to 2020 which had shown LVEF of 65 to 70%, grade 1 diastolic dysfunction. PASP of 28 mmHg. Respiratory viral panel is negative. Overall clinical impression is that of flash pulmonary edema likely precipitated by hypertensive urgency. Plan: Admit to ICU Supplemental oxygen to keep O2 sats greater than 92% BiPAP ventilation until work of breathing improves. ABG showing findings of acute hypoxia. CT of the chest to assess for PE given acute above findings. Echocardiogram to assess for systolic and diastolic function, changes previously over 2020, valvular status. Blood cultures have been taken in the emergency room Reports history of 3 near syncopal episodes at home with onset of symptoms, check CT head. Patient states that he was previously told that his aorta is not pumping enough blood to the brain . I am uncertain if he has been diagnosed with aortic stenosis or other aneurysms in the past. CTA and echocardiogram to assess for the above today. Will additionally order carotid artery Doppler. No prior results available in the system. Lasix 40 mg IV every 12 hours Continue home dose of lisinopril 20 mg p.o. daily, atenolol 50 mg p.o. daily, add hydralazine 10 mg IV every 6 hour for SBP greater than 170. Further antihypertensives may need to be added based on blood pressure trend during inpatient stay. Closely monitor urine output and kidney function with diuresis. Continue troponin series at 2 and 6 hours Supplement hypokalemia with 40 mEq IV potassium. Last potassium at 3.0. Lactic acidosis likely related to hypoxia. DVT prophylaxis: Lovenox 40 Full code 05/16/24 Patient being admitted with acute congestive heart failure likely secondary to hypertensive urgency Blood pressure trend noted has been controlled in 130s IV Lasix increased to 40 mg 3 times daily since there was urinary retention and less output Blood pressure improved with increasing dose of Lasix Continue to monitor I's and O's Shortness of breath improved and saturating 98% on 2 L nasal cannula. Will continue home dose of lisinopril and atenolol for now Follow-up labs in a.m. 6-hour troponins at 42, delta 18, likely secondary to demand ischemia Will follow-up echo and decide for cardiology consult if needed. Continue to monitor in ICU 05/17/24 He is currently being managed for acute diastolic preserved EF congestive heart failure. He is feeling much better today, shortness of breath improved as compared to admission. Blood pressure controlled, currently on IV Lasix 40 mg twice daily. Chest x-ray improved as compared to admission. Has persistent hypokalemia with potassium of 2.7 this morning s/p replacement with 80 mg, repeat potassium 3.2 likely secondary to Lasix. Will replace accordingly. He is saturating well 91 to 92% on room air, was able to get out of bed to chair. Will continue home dose of lisinopril and atenolol for blood pressure. CT head and CTA chest negative for acute findings ECHO- Normal left ventricular size and systolic function, EF 60%. . No regional wall motion abnormalities. Mild concentric left trickle hypertrophy. Moderate mitral annular calcification. Trace to mild mitral valve regurgitation. Moderately severe, low gradient aortic valve stenosis, mean gradient 25.7 mmHg, KORI 1 cm squared. Peak velocity of 3.55 m/s with a peak gradientof 50 mmHg. There is no pericardial effusion. There are no intracardiac masses. Attestations 2 Medical Necessity Statement*: Greater than 2 midnight stay is anticipated for v diuresis, and hypoxia, elevated troponins and 2D echo Time Spent in Patient Care: 25 minutes Critical Care Time: The high probability of a clinically significant, sudden or life threatening deterioration of the patient's [cardiac, respiratory] system(s) required my full and direct attention, intervention and personal management. The critical care time is as shown. This time is in addition to time spent performing any reported procedures but includes the following: [x] Data and vital sign review and interpretation [x] Patient assessment, examination and intervention [x] Documentation [x] Medication orders and management Coding Level of Care Code Acute Code for [facility] Fwd Diagnoses Accelerated hypertension I10 Acute hypoxemic respiratory failure J96.01 Flash pulmonary edema J81.0 Acute diastolic (congestive) heart failure I50.31 Time Spent (min) 25
[2024-05-17] MEDS: FUROsemide 10 mg/mL SDV 4mL 40 MG IVP ×2 (10:45→17:25)
[2024-05-17] MEDS: lidocaine 1% 5 ML in potassium chloride premix 100 ML 26.25 ML IV ×2 (10:45→14:38)
[2024-05-17 17:20] LABS: Glucose Point of Care 214 mg/dL (70-110)
[2024-05-17 17:24] LABS: Glucose Point of Care 255 mg/dL (70-110)
[2024-05-17] MEDS: latanoprost 0.005% Op Soln 2.5 mL Btl 1 DROP EYE-BOTH (20:48)
[2024-05-17 20:54] LABS: Glucose Point of Care 222 mg/dL (70-110)
[2024-05-18] VITALS (13 sets, daily range): BP systolic 129–147; BP diastolic 63–81; PULSE 48–97; RESP 5–28; TEMP 34.7–37.2; O2SAT 84–97; BMI 22.1
[2024-05-18 04:13] LABS: Anion Gap 14.4 (5-19); Blood Urea Nitrogen 23 mg/dL (8-23); Calcium 8.8 mg/dL (8.5-10.5); Carbon Dioxide 30 mmol/L (22-29); Chloride 101 mmol/L (98-107); Creatinine Clr Calc Pharmacy 52.5686; Glucose 160 mg/dL (65-115); Osmolality Calculated 301 mOsm/kg (285-295); Potassium 3.4 mmol/L (3.5-5.1); Sodium 142 mmol/L (136-145)
[2024-05-18] MEDS: FUROsemide 10 mg/mL SDV 4mL 40 MG IVP (06:10)
[2024-05-18] MEDS: enoxaparin 40 mg/0.4 mL Syringe SUBCUT (06:10)
[2024-05-18] MEDS: potassium chloride ER 20 mEq Tablet 40 MEQ PO (07:46)
[2024-05-18] MEDS: insulin lispro 100 unit/1 mL SUBCUT (08:04)
[2024-05-18] MEDS: pantoprazole DR 40 mg Tablet PO (08:04)
[2024-05-18] MEDS: gabapentin 300 mg Capsule PO (08:04)
[2024-05-18] MEDS: clopidogrel 75 mg Tablet PO (08:04)
[2024-05-18] MEDS: lisinopril 20 mg Tablet PO (08:04)
[2024-05-18] MEDS: potassium chloride ER 20 mEq Tablet PO (08:04)
[2024-05-18] MEDS: atorvastatin 40 mg Tablet PO (08:04)
[2024-05-18] MEDS: nicotine 21 mg Patch 1 PATCH TRANSDERMA (08:05)
[2024-05-18 08:17] LABS: Glucose Point of Care 225 mg/dL (70-110)
[2024-05-18] MEDS: ipratropium-albuterol 3 mL Neb INHALATION (08:47)
--- NOTE | 2024-05-18 09:29 | PM.DCS ---
Discharge Providers Date of Admission: 05/16/24 05:28 Date of Discharge: May 18, 2024 Attending Provider at Admission: Evy Broderick MD Attending Provider at Discharge: Sima Macedo MD Primary Care Provider: Rosita Sam MD Diagnoses at Discharge Discharge Diagnosis (1) Accelerated hypertension: Status: Acute (2) Acute hypoxemic respiratory failure: Status: Acute (3) Flash pulmonary edema: Status: Acute (4) Acute diastolic (congestive) heart failure: Status: Acute Reason for Visit Reason for Visit: RESP. DISTRESS Brief History: Carlos Alberto Suárez is a 79 year old male with past medical history of diabetes mellitus, hypertension, history of CAD who presented to the hospital today with acute dyspnea. Patient states that he was asleep when he suddenly woke up at 2 AM feeling extremely short of breath. He tried to get up out of bed and had 3 episodes of falling. He is unable to describe to me if these were syncopal episodes but he does state that he felt extremely dizzy during this time. Patient is typically not on any oxygen. He has not had any longstanding shortness of breath. He denies any chest pain at the time of onset of symptoms. Denies any diaphoresis nausea or vomiting. Upon arrival at the emergency room he was noted to be hypoxic with oxygen saturation of 83%. He was placed on supplemental O2 however had increased work of breathing for which she was eventually placed on a BiPAP. At the time of this assessment patient is on a BiPAP with 40% FiO2, settings of 12/6 for IPAP/EPAP. He has a history of sleep apnea and typically uses a CPAP at home. Chest x-ray showed bilateral pulmonary edema appearing to be consistent with CHF. Respiratory viral panels negative. Patient denies any recent fever or chills. He has recently recovered from an extensive left hand infection which was treated with IV piperacillin/tazobactam after failure of oral antibiotics. Piperacillin/tazobactam was discontinued on May 03, 2024. He tolerated the medications well apart from some intermittent diarrhea which has since resolved. His hand looks much improved. There continues to be a small area through which there is likely a tendon protruding, however overall signs of infection have completely resolved. His follow up appt with Dr. Child is in May 2024. Hospital Course Hospital Course Admit to ICU Supplemental oxygen to keep O2 sats greater than 92% BiPAP ventilation until work of breathing improves. ABG showing findings of acute hypoxia. CT of the chest to assess for PE given acute above findings. Echocardiogram to assess for systolic and diastolic function, changes previously over 2020, valvular status. Blood cultures have been taken in the emergency room Reports history of 3 near syncopal episodes at home with onset of symptoms, check CT head. Patient states that he was previously told that his aorta is not pumping enough blood to the brain . I am uncertain if he has been diagnosed with aortic stenosis or other aneurysms in the past. CTA and echocardiogram to assess for the above today. Will additionally order carotid artery Doppler. No prior results available in the system. Lasix 40 mg IV every 12 hours Continue home dose of lisinopril 20 mg p.o. daily, atenolol 50 mg p.o. daily, add hydralazine 10 mg IV every 6 hour for SBP greater than 170. Further antihypertensives may need to be added based on blood pressure trend during inpatient stay. Closely monitor urine output and kidney function with diuresis. Continue troponin series at 2 and 6 hours Supplement hypokalemia with 40 mEq IV potassium. Last potassium at 3.0. Lactic acidosis likely related to hypoxia. DVT prophylaxis: Lovenox 40 Full code 05/16/24 Patient being admitted with acute congestive heart failure likely secondary to hypertensive urgency Blood pressure trend noted has been controlled in 130s IV Lasix increased to 40 mg 3 times daily since there was urinary retention and less output Blood pressure improved with increasing dose of Lasix Continue to monitor I's and O's Shortness of breath improved and saturating 98% on 2 L nasal cannula. Will continue home dose of lisinopril and atenolol for now Follow-up labs in a.m. 6-hour troponins at 42, delta 18, likely secondary to demand ischemia Will follow-up echo and decide for cardiology consult if needed. Continue to monitor in ICU 05/17/24 He is currently being managed for acute diastolic preserved EF congestive heart failure. He is feeling much better today, shortness of breath improved as compared to admission. Blood pressure controlled, currently on IV Lasix 40 mg twice daily. Chest x-ray improved as compared to admission. Has persistent hypokalemia with potassium of 2.7 this morning s/p replacement with 80 mg, repeat potassium 3.2 likely secondary to Lasix. Will replace accordingly. He is saturating well 91 to 92% on room air, was able to get out of bed to chair. Will continue home dose of lisinopril and atenolol for blood pressure. CT head and CTA chest negative for acute findings ECHO- Normal left ventricular size and systolic function, EF 60%. . No regional wall motion abnormalities. Mild concentric left trickle hypertrophy. Moderate mitral annular calcification. Trace to mild mitral valve regurgitation. Moderately severe, low gradient aortic valve stenosis, mean gradient 25.7 mmHg, KORI 1 cm squared. Peak velocity of 3.55 m/s with a peak gradientof 50 mmHg. There is no pericardial effusion. There are no intracardiac masses. 05/18/24 He is doing well, will discharge him home today. Need to follow up with primary in 1 week and cardiology as outpatient. Physical Exam Narrative: General: He is alert awake oriented x 3, not in acute distress, on room air HEENT: PERRLA, pupils bilaterally equal and reactive, pallors not present Chest: B/L rales to auscultation improved CVS: S1-S2 regular, sytsolic murmur+ , no tachycardia, no gallops, no rubs Abdomen: Soft, nontender, no organomegaly, bowel sounds present Neuro: No focal deficits, no facial deformity, AO x3, power 5/5 in all limbs Extremities: no edema or clubbing Urinary Catheter Management: San: Cath Placed During This Visit: yes Reason for Continuing Indwelling Catheter: Accurate Measurement of Urinary Output in Critically Ill Patients Urinary Catheter Date of Insertion: 05/16/24 Urinary Catheter Time of Insertion: 10:00 Discharge Data Studies Completed and Pending Completed Studies During Hospitalization Category Date Time Status CT head wo con* [id number] Routine Cat Scan 05/16/24 06:42 Completed CTA chest [CT angio chest PE protcl [id number]] Routine Cat Scan 05/16/24 06:39 Completed XR chest 1V portable [id number] Stat Exams 05/16/24 04:32 Completed XR chest 1V portable [id number] Stat Exams 05/17/24 09:20 Completed CV. echo complete* [id number] Routine Ultrasound 05/16/24 06:42 Completed Pending at discharge Category Date Time Status Blood Culture Stat Lab 05/16/24 04:47 Results Radiology Impressions Chest CTA 05/16/24 06:39 IMPRESSION: 1. Pleural effusions, likely CHF. 2. No evidence of embolus. Head CT 05/16/24 06:42 IMPRESSION: No acute intracranial findings. Chest X-Ray 05/17/24 09:20 IMPRESSION: 1. Borderline cardiomegaly with bibasilar vascular congestion improved. 2. More focal opacity left lung base unchanged. 3. Lung hyperinflation. Laboratory Results WBC 11.03 10^3/uL (3.29-11.43) 05/17/24 04:11 RBC 3.41 10^6/uL (3.85-5.65) L 05/17/24 04:11 Hgb 10.10 g/dL (11.27-16.99) L 05/17/24 04:11 Hct 32.3 % (37-53) L 05/17/24 04:11 MCV 94.7 fl (82-101) 05/17/24 04:11 MCH 29.6 pg (27-33) 05/17/24 04:11 MCHC 31.3 g/dL (30-55) 05/17/24 04:11 RDW 16.5 % (12.1-15.1) H 05/17/24 04:11 Plt Count 239 10^3/cmm (157-399) 05/17/24 04:11 MPV 9.9 fL (7.4-10.4) 05/17/24 04:11 Neut % (Auto) 55.0 % 05/17/24 04:11 Lymph % (Auto) 33.0 % 05/17/24 04:11 Otero % (Auto) 10.4 % 05/17/24 04:11 Eos % (Auto) 0.8 % 05/17/24 04:11 Baso % (Auto) 0.4 % 05/17/24 04:11 Neut # (Auto) 6.07 10^3/uL (1.8-7.7) 05/17/24 04:11 Lymph # (Auto) 3.6 10^3/uL (0.8-4.8) 05/17/24 04:11 Otero # (Auto) 1.2 10^3/uL (0.2-0.9) H 05/17/24 04:11 Eos # (Auto) 0.1 10^3/uL (0.0-0.8) 05/17/24 04:11 Baso # (Auto) 0.0 10^3/uL (0.0-0.1) 05/17/24 04:11 Nucleated RBC % (auto) 0 % 05/17/24 04:11 Nucleated RBCs # 0.0 /100WBC 05/17/24 04:11 D-Dimer 1.44 ug/mLFEU (0-0.59) H 05/16/24 06:49 Specimen Type Arterial 05/16/24 04:36 Sample Site Radial, right 05/16/24 04:36 ABG pH 7.48 (7.35-7.45) H 05/16/24 04:36 ABG pCO2 36.7 mmHg (35-45) 05/16/24 04:36 ABG pO2 46.3 mmHg (80.0-100.0) L 05/16/24 04:36 ABG PO2/FiO2 Ratio 220 05/16/24 04:36 ABG HCO3 27.3 mmol/L (22-26) H 05/16/24 04:36 ABG O2 Saturation 82.3 05/16/24 04:36 ABG Base Excess 3.7 mmol/L (-2.0-2.0) H 05/16/24 04:36 Joe Test Pos 05/16/24 04:36 A-a O2 Gradient 7.5 mmHg (5-10) 05/16/24 04:36 Hematocrit 32.3 % (42-52) L 05/16/24 04:36 Hgb O2 Saturation 79.2 % (95-100) L 05/16/24 04:36 Carboxyhemoglobin 2.7 %THgb (0.4-20.1) 05/16/24 04:36 Methemoglobin 1.1 % (0.4-1.5) 05/16/24 04:36 Total Hemoglobin 10.6 g/dL (14-18) L 05/16/24 04:36 Sodium 145.0 mmol/L (131-143) H 05/16/24 04:36 Potassium 2.8 mmol/L (3.5-5.0) L 05/16/24 04:36 Glucose 217.0 mg/dL (70-115) H 05/16/24 04:36 Ionized Calcium 1.1 mmol/L (1.1-1.4) 05/16/24 04:36 O2 Delivery Device Room air 05/16/24 04:36 FiO2 21.0 % 05/16/24 04:36 Administrative Director ID [id number] 05/16/24 04:36 Sodium 142 mmol/L (136-145) 05/18/24 03:32 Potassium 3.4 mmol/L (3.5-5.1) L 05/18/24 03:32 Chloride 101 mmol/L (98-107) 05/18/24 03:32 Carbon Dioxide 30 mmol/L (22-29) H 05/18/24 03:32 Anion Gap 14.4 (5-19) 05/18/24 03:32 BUN 23 mg/dL (8-23) 05/18/24 03:32 Creatinine 1.2 mg/dL (0.7-1.2) 05/18/24 03:32 GFR Calculation Not Reportable 05/18/24 03:32 Glucose 160 mg/dL (65-115) H 05/18/24 03:32 POC Glucose 225 mg/dL (70-110) H 05/18/24 07:48 Calculated Osmolality 301 mOsm/kg (285-295) H 05/18/24 03:32 Lactic Acid 2.9 mmol/L (0.5-2.2) H 05/16/24 04:45 Lactic Acid (Sepsis) 2.4 mmol/L (0.5-2.2) H 05/16/24 06:49 Calcium 8.8 mg/dL (8.5-10.5) 05/18/24 03:32 Total Bilirubin 0.8 mg/dL (0.15-1.2) 05/17/24 04:11 AST 13 U/L (0-40) 05/17/24 04:11 ALT 8 U/L (0-41) 05/17/24 04:11 Alkaline Phosphatase 100 U/L (40-130) 05/17/24 04:11 Troponin T 5th Gen ng/L 35 ng/L (0-15) H 05/17/24 04:11 Troponin T Baseline 24 ng/L (0-15) H 05/16/24 04:45 Troponin T 120 Minute 29.52 ng/L (0-15) H 05/16/24 06:49 Delta Troponin T 5.52 ABS# (0-10) 05/16/24 06:49 Troponin T Hi Sens 6Hr 42.21 ng/L (0-15) H 05/16/24 10:55 Troponin T Hi Sens 6Hr Delta 18.21 ng/L (0-12) H* 05/16/24 10:55 C-Reactive Protein 20.5 mg/L (0.0-4.9) H 05/16/24 04:45 NT-Pro-B Natriuret Pep 3562 pg/mL (0-450) H 05/16/24 04:45 Total Protein 6.2 g/dL (6.6-8.7) L 05/17/24 04:11 Albumin 3.8 g/dL (3.5-5.2) 05/17/24 04:11 Globulin 2.4 g/dL (1.3-4.6) 05/17/24 04:11 Coronavirus (PCR) Negative (Negative) 05/16/24 04:42 Influenza A (PCR) Negative (Negative) 05/16/24 04:42 Influenza Type B (PCR) Negative (Negative) 05/16/24 04:42 RSV (PCR) Negative (Negative) 05/16/24 04:42 Vitals Last Vital Signs Temp 98.9 F 05/18/24 07:00 Pulse 88 05/18/24 08:48 Resp 16 05/18/24 08:48 BP 129/76 05/18/24 08:00 Pulse Ox 92 05/18/24 08:48 O2 Del Method Room Air 05/18/24 08:48 O2 Flow Rate 3 05/18/24 02:00 FiO2 40 05/16/24 08:00 Discharge Plan Discharge Patient Disposition: Home Condition: Stable Prescriptions: New potassium chloride [Klor-Con M20] 20 mEq Tablet,Er Particles/Crystals 20 meq PO DAILY 7 Days Qty: 7 0RF furosemide [Lasix] 40 mg tablet 40 mg PO BID Qty: 14 0RF Continued latanoprost 0.005 % drops 1 drp ophthalmic (eye) BEDTIME brimonidine 0.2 % drops 1 drp ophthalmic (eye) TID gabapentin 300 mg Capsule 300 mg PO TID Rx Instructions: take 1 capsule by mouth every morning and two every evening timolol maleate 0.5 % drops 1 drp ophthalmic (eye) BID atenolol 50 mg tablet 50 mg PO DAILY brimonidine 0.15 % drops 1 drp ophthalmic (eye) TID insulin aspart U-100 [Novolog FlexPen U-100 Insulin] 100 unit/mL (3 mL) Insulin Pen 10 unit SUBCUT TID atorvastatin 80 mg Tablet 40 mg PO DAILY lisinopril 20 mg Tablet 20 mg PO DAILY metformin 850 mg Tablet 850 mg PO BID Rx Instructions: take 1 tablet by mouth twice daily with meals to lower blood sugar clopidogrel 75 mg Tablet 75 mg PO DAILY meloxicam 7.5 mg Tablet 7.5 mg PO DAILY ascorbic acid (vitamin C) 100 mg Tablet 100 mg PO DAILY omeprazole 20 mg Capsule,Delayed Release(Dr/Ec) 20 mg PO DAILY Fish Oil 1,600-500-800 mg/5 mL Liquid 5 ml PO DAILY allopurinol 100 mg Tablet 100 mg PO DAILY Held insulin glulisine U-100 100 unit/mL Insulin Pen See Rx Instructions .ROUTE .COMPLEX Hold Instructions: Defer to PCP Rx Instructions: inject 55 units ;sq; every evening before meal to lower cholesterol Discharge Orders: Discharge Order (Routine); Ordered 05/18/24 Ordered By: Sima Macedo Referrals: Rosita Sam MD [Primary Care Provider] - (Please call Dr. Mcelroy's Office on Tuesday or Tuesday at [phone] to schedule a follow up appointment. Thank you.) Discharge Diet: Cardiac Discharge Activity: Increase activity as tolerated Patient Instructions: Furosemide (By mouth) (Lasix), Potassium Chloride (By mouth) (K-Dur, K-Shell, K-Tab, Timothy Mur), Hypertension, Pulmonary Edema (DC), Acute Respiratory Failure (IP), Opioid Safety Discharge Attestations Time Spent in Discharge Care*: less than 30 min Quality Metrics Clinical Quality Measures [ No reported AMI, CVA or VTE this stay] Coding Level of Care Code Acute Code for Chg Fwd Diagnoses Accelerated hypertension I10 Acute hypoxemic respiratory failure J96.01 Flash pulmonary edema J81.0 Acute diastolic (congestive) heart failure I50.31 Time Spent (min) 20
[2024-05-18] MEDS: atenolol 50 mg Tablet PO (09:53)
--- NOTE | 2024-05-18 11:24 | PC.NURSE ---
Addendum entered by Nnamdi Sanchez RN 05/18/24 12:01: Family arrived and patient left at 1150. was at bedside, nurse also discussed discharge instruction with toñito myers. Original Note: Discharged patient. New medication and upcoming appointment information provided. IV removed. Medications provided to patient via meds to bed. Patient signature form signed. CUrrently waiting on family to arrive for ride home.
== END 2024-05-18 11:55 | disposition home or self-care (01) | DRG 189 ==
LOC: ER 05:29 → ICU 05:48
PROVIDERS: Admitting Provider Student in an Organized Health Care Education/Training Program; Emergency Provider Emergency Medicine; PCP Family Medicine; Visit Provider Internal Medicine
DX: J96.01 Acute respiratory failure with hypoxia (principal); I50.31 Acute diastolic (congestive) heart failure; E87.20 Acidosis, unspecified; I11.0 Hypertensive heart disease with heart failure; E11.9 Type 2 diabetes mellitus without complications; I25.10 Atherosclerotic heart disease of native coronary artery without angina pectoris; E87.6 Hypokalemia; Z79.02 Long term (current) use of antithrombotics/antiplatelets; Z79.84 Long term (current) use of oral hypoglycemic drugs; Z79.4 Long term (current) use of insulin
CPT/HCPCS: 0241U; 36415; 36416; 51702; 70450; 71045; 71275; 80048; 80051; 80053; 82330; 82805; 82962; 83605; 83880; 84132; 84484; 85025; 85378; 86140; 87040; 93005; 93306; 94640; 94660; 96372; 96374; 99285; J0360; J1650; J1815; J1940; J3480

== ENCOUNTER → 2024-06-05 13:38 | Outpatient (BNVA) | payer OTHER, SELFPAY | PROVIDERS: PCP Family Medicine; Visit Provider Internal Medicine Cardiovascular Disease | DX: I11.0 Hypertensive heart disease with heart failure (principal); I50.9 Heart failure, unspecified; I48.91 Unspecified atrial fibrillation; I35.0 Nonrheumatic aortic (valve) stenosis; I25.10 Atherosclerotic heart disease of native coronary artery without angina pectoris; F17.200 Nicotine dependence, unspecified, uncomplicated | CPT/HCPCS: 99204 ==